=== PATIENT | male | born 1955 | race Caucasian/White ===

== ENCOUNTER 2018-02-28 13:38 | Inpatient (IN) | payer OTHER, MEDICAID ==
[2018-02-28 14:13] LABS: BASO # 0.2 x10^3/uL (0.0-0.2); BASO % 1 % (0-3); EOS % 0 % (0-3); HEMATOCRIT 38.8 % (39.0-53.0); HEMOGLOBIN 12.6 g/dL (13.0-17.5); LYMPH # 0.3 x10^3/uL (1.0-4.8); LYMPH % 1 % (24-48); MEAN CORPUSCULAR HEMOGLOBIN 24 pg (25-35); MEAN CORPUSCULAR HGB CONC 32 g/dL (31-37); MEAN CORPUSCULAR VOLUME 74 fL (79-100); MONO # 1.1 x10^3/uL (0.0-1.1); MONO % 4 % (0-9); NEUT # 25.5 x10^3uL (1.8-7.7); NEUT % 94 % (31-73); PLATELET COUNT 702 x10^3/uL (140-400); RED BLOOD COUNT 5.25 x10^6/uL (4.30-5.70); RED CELL DISTRIBUTION WIDTH 17.4 % (11.5-14.5); WHITE BLOOD COUNT 27.3 x10^3/uL (4.0-11.0)
[2018-02-28 14:16] LABS: ADD MAN DIFF? YES
[2018-02-28 14:21] LABS: ANION GAP 15 (6-14); BLOOD UREA NITROGEN 23 mg/dL (8-26); CALCIUM 9.1 mg/dL (8.5-10.1); CARBON DIOXIDE 21 mmol/L (21-32); CHLORIDE 96 mmol/L (98-107); CREATININE 1.5 mg/dL (0.7-1.3); GFR 47.3; GLUCOSE 113 mg/dL (70-99); POTASSIUM 3.8 mmol/L (3.5-5.1); SODIUM 132 mmol/L (136-145)
[2018-02-28 14:27] LABS: ALBUMIN 2.7 g/dL (3.4-5.0); ALK PHOS 109 U/L (46-116); ALT (SGPT) 23 U/L (16-63); AST (SGOT) 20 U/L (15-37); DIRECT BILIRUBIN 1.2 mg/dL (0.0-0.2); LIPASE 47 U/L (73-393); TOTAL BILIRUBIN 2.1 mg/dL (0.2-1.0)
[2018-02-28 14:30] LABS: INR 1.2 (0.8-1.1); PARTIAL THROMBOPLASTIN TIME 26 SEC (24-38); PROTHROMBIN TIME PATIENT 14.5 SEC (11.7-14.0)
[2018-02-28 14:37] LABS: CKMB MASS < 0.5 ng/mL (0.0-3.6); CREATINE KINASE 60 U/L (39-308)
[2018-02-28] MEDS ORDERED: CONTRAST GIVEN MC (14:45)
[2018-02-28 14:46] LABS: % BANDS 30 % (0-9); % LYMPHS 1 % (24-48); % MONOS 3 % (0-10); % SEGS 66 % (35-66); PLT ESTIMATE INCREASED (ADEQUATE)
[2018-02-28 14:47] LABS: TOXIC GRANULATION SLIGHT
[2018-02-28] MEDS: IOHEXOL 300 MG/ML 100ML VIAL. IV (14:49)
[2018-02-28 14:53] LABS: LACTIC ACID 3.5 mmol/L (0.4-2.0)
[2018-02-28] MEDS: IV NORMAL SALINE 1000ML BAG 1,000 ML IV ×4 (14:58→19:08)
[2018-02-28] MEDS: ONDANSETRON PF 4 MG/2 ML VIAL. IV (15:00)
[2018-02-28] MEDS: fentaNYL PF VIAL 100 MCG/2 ML VIAL IV ×4 (15:05→21:34)
[2018-02-28] MEDS ORDERED: MORPHINE SULFATE 2 MG/ML DISP.SYRIN. IV (15:45)
[2018-02-28 16:34] LABS: LACTIC ACID 2.2 mmol/L (0.4-2.0)
[2018-02-28] MEDS: CIPROFLOXACIN 400MG PREMIX 200 ML IV ×2 (17:22→23:39)
[2018-02-28] MEDS: PNEUMOCOCCAL VAX SCREEN BY RX. MC (17:30)
[2018-02-28] MEDS ORDERED: NOREPINEPHRIN PREMIX 250 ML IV (17:45)
[2018-02-28] MEDS: IV NORMAL SALINE 500ML BAG 500 ML IV (19:02)
[2018-02-28 20:59] LABS: LACTIC ACID 1.8 mmol/L (0.4-2.0)
[2018-02-28] MEDS: diphenhydrAMINE 50 MG/ML VIAL IVP (22:59)
[2018-03-01] MEDS: fentaNYL PF VIAL 100 MCG/2 ML VIAL IV ×6 (05:11→21:00)
[2018-03-01] MEDS: ONDANSETRON PF 4 MG/2 ML VIAL. IV (05:11)
[2018-03-01 05:35] LABS: ADD MAN DIFF? NO
[2018-03-01 06:01] LABS: BASO # 0.1 x10^3/uL (0.0-0.2); BASO % 1 % (0-3); EOS % 0 % (0-3); HEMATOCRIT 32.4 % (39.0-53.0); HEMOGLOBIN 10.1 g/dL (13.0-17.5); LYMPH # 0.4 x10^3/uL (1.0-4.8); LYMPH % 3 % (24-48); MEAN CORPUSCULAR HEMOGLOBIN 23 pg (25-35); MEAN CORPUSCULAR HGB CONC 31 g/dL (31-37); MEAN CORPUSCULAR VOLUME 74 fL (79-100); MONO # 0.6 x10^3/uL (0.0-1.1); MONO % 5 % (0-9); NEUT # 12.7 x10^3uL (1.8-7.7); NEUT % 92 % (31-73); PLATELET COUNT 504 x10^3/uL (140-400); RED BLOOD COUNT 4.35 x10^6/uL (4.30-5.70); RED CELL DISTRIBUTION WIDTH 17.2 % (11.5-14.5); WHITE BLOOD COUNT 13.8 x10^3/uL (4.0-11.0)
[2018-03-01 06:34] LABS: ALBUMIN 1.9 g/dL (3.4-5.0); ALBUMIN/GLOBULIN RATIO 0.4 (1.0-1.7); ALK PHOS 81 U/L (46-116); ALT (SGPT) 16 U/L (16-63); ANION GAP 10 (6-14); AST (SGOT) 14 U/L (15-37); BLOOD UREA NITROGEN 18 mg/dL (8-26); BUN/CREATININE RATIO 16 (6-20); CALCIUM 8.1 mg/dL (8.5-10.1); CARBON DIOXIDE 23 mmol/L (21-32); CHLORIDE 101 mmol/L (98-107); CREATININE 1.1 mg/dL (0.7-1.3); GFR 67.6; POTASSIUM 3.7 mmol/L (3.5-5.1); SODIUM 134 mmol/L (136-145); TOTAL PROTEIN 6.6 g/dL (6.4-8.2)
[2018-03-01 06:42] LABS: GLUCOSE 60 mg/dL (70-99)
[2018-03-01] MEDS: DEXTROSE 50% 25 GM / 50ML DISP.SYRIN. IV (07:27)
[2018-03-01 07:43] LABS: POC GLUCOSE 112 mg/dL (70-99)
[2018-03-01] MEDS: CIPROFLOXACIN 400MG PREMIX 200 ML IV ×2 (09:18→21:01)
[2018-03-01] MEDS: IV DEXTROSE 5% - 0.9 % NACL 1,000 ML IV ×2 (09:55→21:05)
[2018-03-01 11:38] LABS: POC GLUCOSE 113 mg/dL (70-99)
[2018-03-01 16:30] LABS: POC GLUCOSE 103 mg/dL (70-99)
[2018-03-01] MEDS: PNEUMOC CONJ VACC 23-VALENT 0.5 ML VIAL. VAX IM (18:29)
[2018-03-01 20:59] LABS: POC GLUCOSE 111 mg/dL (70-99)
[2018-03-01] MEDS: diphenhydrAMINE 50 MG/ML VIAL IVP (21:00)
[2018-03-01 23:07] LABS: MRSA BY PCR Negative (Negative)
[2018-03-02] MEDS: fentaNYL PF VIAL 100 MCG/2 ML VIAL IV ×7 (01:55→23:29)
[2018-03-02] MEDS: IV DEXTROSE 5% - 0.9 % NACL 1,000 ML IV ×2 (04:41→21:00)
[2018-03-02 08:16] LABS: POC GLUCOSE 168 mg/dL (70-99)
[2018-03-02] MEDS: CIPROFLOXACIN 400MG PREMIX 200 ML IV ×2 (09:05→21:00)
[2018-03-02 12:24] LABS: POC GLUCOSE 165 mg/dL (70-99)
[2018-03-02 17:04] LABS: POC GLUCOSE 129 mg/dL (70-99)
[2018-03-02 23:19] LABS: POC GLUCOSE 186 mg/dL (70-99)
[2018-03-03] MEDS: fentaNYL PF VIAL 100 MCG/2 ML VIAL IV ×6 (02:47→19:28)
[2018-03-03 04:57] LABS: ADD MAN DIFF? NO
[2018-03-03 05:09] LABS: BASO % 0 % (0-3); EOS # 0.1 x10^3/uL (0.0-0.7); EOS % 1 % (0-3); HEMOGLOBIN 11.2 g/dL (13.0-17.5); LYMPH # 0.4 x10^3/uL (1.0-4.8); LYMPH % 3 % (24-48); MEAN CORPUSCULAR HEMOGLOBIN 23 pg (25-35); MEAN CORPUSCULAR HGB CONC 31 g/dL (31-37); MEAN CORPUSCULAR VOLUME 75 fL (79-100); MONO # 0.9 x10^3/uL (0.0-1.1); MONO % 6 % (0-9); NEUT # 13.2 x10^3uL (1.8-7.7); NEUT % 90 % (31-73); PLATELET COUNT 602 x10^3/uL (140-400); RED CELL DISTRIBUTION WIDTH 17.2 % (11.5-14.5); WHITE BLOOD COUNT 14.6 x10^3/uL (4.0-11.0)
[2018-03-03 05:29] LABS: ANION GAP 8 (6-14); BLOOD UREA NITROGEN 19 mg/dL (8-26); CALCIUM 7.9 mg/dL (8.5-10.1); CARBON DIOXIDE 25 mmol/L (21-32); CHLORIDE 101 mmol/L (98-107); CREATININE 0.9 mg/dL (0.7-1.3); GFR 85.2; GLUCOSE 175 mg/dL (70-99); POTASSIUM 4.2 mmol/L (3.5-5.1); SODIUM 134 mmol/L (136-145)
[2018-03-03] MEDS: CIPROFLOXACIN 400MG PREMIX 200 ML IV ×2 (08:41→21:04)
[2018-03-03 08:42] LABS: POC GLUCOSE 160 mg/dL (70-99)
[2018-03-03] MEDS ORDERED: DEXTROSE 50% 25 GM / 50ML DISP.SYRIN. IV (10:45)
[2018-03-03 11:12] LABS: BILIRUBIN,URINE SMALL (NEG); CLARITY,URINE CLEAR; COLOR,URINE AMBER; GLUCOSE,URINE 250 mg/dL (NEG); NITRITE,URINE NEGATIVE (NEG); PH,URINE 5.5; PROTEIN,URINE 30 mg/dL (NEG-TRACE); UROBILINOGEN,URINE 0.2 mg/dL (0.2 mg/dL)
[2018-03-03 11:13] LABS: BACTERIA,URINE MODERATE /HPF (0-FEW); RBC,URINE OCC /HPF (0-2); SQUAMOUS EPITHELIAL CELL,UR OCC /LPF
[2018-03-03] MEDS: INSULIN ASPART 300 UNITS/3 ML INSULN.PEN SQ ×2 (12:05→17:00)
[2018-03-03 13:10] LABS: POC GLUCOSE 177 mg/dL (70-99)
[2018-03-03] MEDS: IV DEXTROSE 5% - 0.9 % NACL 1,000 ML IV (15:31)
[2018-03-03 16:37] LABS: POC GLUCOSE 145 mg/dL (70-99)
[2018-03-03 20:46] LABS: POC GLUCOSE 151 mg/dL (70-99)
[2018-03-03] MEDS: LACTOBACILLUS RHAMNOSUS GG 1 CAPSULE. PO (21:04)
[2018-03-04] MEDS: diphenhydrAMINE 50 MG/ML VIAL IVP (00:59)
[2018-03-04] MEDS: fentaNYL PF VIAL 100 MCG/2 ML VIAL IV ×2 (00:59→10:41)
[2018-03-04 03:34] LABS: ADD MAN DIFF? NO
[2018-03-04 03:37] LABS: BASO # 0.1 x10^3/uL (0.0-0.2); BASO % 1 % (0-3); EOS # 0.2 x10^3/uL (0.0-0.7); EOS % 2 % (0-3); HEMATOCRIT 34.5 % (39.0-53.0); HEMOGLOBIN 10.6 g/dL (13.0-17.5); LYMPH # 0.7 x10^3/uL (1.0-4.8); LYMPH % 6 % (24-48); MEAN CORPUSCULAR HEMOGLOBIN 23 pg (25-35); MEAN CORPUSCULAR HGB CONC 31 g/dL (31-37); MEAN CORPUSCULAR VOLUME 75 fL (79-100); MONO % 9 % (0-9); NEUT # 8.7 x10^3uL (1.8-7.7); NEUT % 82 % (31-73); PLATELET COUNT 584 x10^3/uL (140-400); RED BLOOD COUNT 4.62 x10^6/uL (4.30-5.70); RED CELL DISTRIBUTION WIDTH 17.6 % (11.5-14.5); WHITE BLOOD COUNT 10.6 x10^3/uL (4.0-11.0)
[2018-03-04 04:00] LABS: ALBUMIN 1.7 g/dL (3.4-5.0); ALBUMIN/GLOBULIN RATIO 0.4 (1.0-1.7); ALK PHOS 72 U/L (46-116); ALT (SGPT) 31 U/L (16-63); ANION GAP 6 (6-14); AST (SGOT) 11 U/L (15-37); BLOOD UREA NITROGEN 14 mg/dL (8-26); BUN/CREATININE RATIO 14 (6-20); CALCIUM 7.6 mg/dL (8.5-10.1); CARBON DIOXIDE 27 mmol/L (21-32); CHLORIDE 100 mmol/L (98-107); GFR 75.5; GLUCOSE 154 mg/dL (70-99); POTASSIUM 3.8 mmol/L (3.5-5.1); SODIUM 133 mmol/L (136-145); TOTAL BILIRUBIN 0.5 mg/dL (0.2-1.0); TOTAL PROTEIN 5.7 g/dL (6.4-8.2)
[2018-03-04] MEDS: IV DEXTROSE 5% - 0.9 % NACL 1,000 ML IV ×2 (05:50→17:56)
[2018-03-04] MEDS ORDERED: CONTRAST GIVEN MC (07:15)
[2018-03-04] MEDS: IOHEXOL 240 MG/ML 50ML VIAL. PO (07:15)
[2018-03-04] MEDS: IOHEXOL 300 MG/ML 100ML VIAL. IV (07:15)
[2018-03-04] MEDS: INSULIN ASPART 300 UNITS/3 ML INSULN.PEN SQ ×3 (08:00→17:00)
[2018-03-04 08:20] LABS: POC GLUCOSE 153 mg/dL (70-99)
[2018-03-04] MEDS: CIPROFLOXACIN 400MG PREMIX 200 ML IV ×2 (08:31→20:35)
[2018-03-04] MEDS: LACTOBACILLUS RHAMNOSUS GG 1 CAPSULE. PO ×2 (08:31→20:35)
[2018-03-04 11:56] LABS: POC GLUCOSE 170 mg/dL (70-99)
[2018-03-04 16:47] LABS: % SAT IRON 10 % (15-34); IRON,SERUM 15 ug/dL (65-175)
[2018-03-04 17:25] LABS: POC GLUCOSE 123 mg/dL (70-99)
[2018-03-04] MEDS: PANTOPRAZOLE 40 MG TABLET.DR. PO (17:55)
[2018-03-04] MEDS: oxyCODONE/APAP 5/325 1 TAB TABLET PO ×2 (17:56→22:27)
[2018-03-04] MEDS ORDERED: LIDO:MAALOX:DONNATAL 1:1:1 15 ML SINGLE DOSE SWSW (20:00)
[2018-03-04] MEDS: LIDO:MAALOX 1:1 20 ML SINGLE DOSE. PO (20:34)
[2018-03-04 21:15] LABS: POC GLUCOSE 147 mg/dL (70-99)
[2018-03-05 04:30] LABS: ADD MAN DIFF? NO
[2018-03-05 04:32] LABS: BASO % 0 % (0-3); EOS # 0.3 x10^3/uL (0.0-0.7); EOS % 2 % (0-3); HEMATOCRIT 34.8 % (39.0-53.0); HEMOGLOBIN 10.9 g/dL (13.0-17.5); LYMPH # 0.8 x10^3/uL (1.0-4.8); LYMPH % 8 % (24-48); MEAN CORPUSCULAR HEMOGLOBIN 23 pg (25-35); MEAN CORPUSCULAR HGB CONC 31 g/dL (31-37); MEAN CORPUSCULAR VOLUME 74 fL (79-100); MONO # 1.2 x10^3/uL (0.0-1.1); MONO % 11 % (0-9); NEUT # 8.8 x10^3uL (1.8-7.7); NEUT % 79 % (31-73); PLATELET COUNT 591 x10^3/uL (140-400); RED CELL DISTRIBUTION WIDTH 17.6 % (11.5-14.5); WHITE BLOOD COUNT 11.1 x10^3/uL (4.0-11.0)
[2018-03-05 04:54] LABS: ALBUMIN 1.7 g/dL (3.4-5.0); ALBUMIN/GLOBULIN RATIO 0.4 (1.0-1.7); ALK PHOS 74 U/L (46-116); ALT (SGPT) 12 U/L (16-63); ANION GAP 5 (6-14); AST (SGOT) 12 U/L (15-37); BLOOD UREA NITROGEN 12 mg/dL (8-26); BUN/CREATININE RATIO 13 (6-20); CALCIUM 7.6 mg/dL (8.5-10.1); CARBON DIOXIDE 27 mmol/L (21-32); CHLORIDE 101 mmol/L (98-107); CREATININE 0.9 mg/dL (0.7-1.3); GFR 85.2; GLUCOSE 155 mg/dL (70-99); POTASSIUM 3.7 mmol/L (3.5-5.1); SODIUM 133 mmol/L (136-145); TOTAL BILIRUBIN 0.4 mg/dL (0.2-1.0); TOTAL PROTEIN 5.8 g/dL (6.4-8.2)
[2018-03-05] MEDS: PANTOPRAZOLE 40 MG TABLET.DR. PO (05:32)
[2018-03-05] MEDS: oxyCODONE/APAP 5/325 1 TAB TABLET PO ×3 (05:32→20:24)
[2018-03-05] MEDS: IV DEXTROSE 5% - 0.9 % NACL 1,000 ML IV ×2 (05:33→18:10)
[2018-03-05] MEDS: INSULIN ASPART 300 UNITS/3 ML INSULN.PEN SQ ×3 (07:55→17:00)
[2018-03-05] MEDS: LACTOBACILLUS RHAMNOSUS GG 1 CAPSULE. PO ×2 (07:58→20:24)
[2018-03-05] MEDS: ONDANSETRON PF 4 MG/2 ML VIAL. IV (08:01)
[2018-03-05] MEDS: CIPROFLOXACIN 400MG PREMIX 200 ML IV ×2 (08:56→20:24)
[2018-03-05 12:07] LABS: POC GLUCOSE 166 mg/dL (70-99)
[2018-03-05 17:07] LABS: POC GLUCOSE 147 mg/dL (70-99)
[2018-03-05 17:07] LABS: POC GLUCOSE 126 mg/dL (70-99)
[2018-03-05] MEDS: CALCIUM CARBONATE 500 MG TAB.CHEW PO (20:24)
[2018-03-05 21:06] LABS: POC GLUCOSE 154 mg/dL (70-99)
[2018-03-06 04:08] LABS: ADD MAN DIFF? NO
[2018-03-06 04:11] LABS: BASO # 0.1 x10^3/uL (0.0-0.2); BASO % 1 % (0-3); EOS # 0.2 x10^3/uL (0.0-0.7); EOS % 2 % (0-3); HEMATOCRIT 34.8 % (39.0-53.0); LYMPH # 0.9 x10^3/uL (1.0-4.8); LYMPH % 8 % (24-48); MEAN CORPUSCULAR HEMOGLOBIN 23 pg (25-35); MEAN CORPUSCULAR HGB CONC 32 g/dL (31-37); MEAN CORPUSCULAR VOLUME 74 fL (79-100); MONO # 1.1 x10^3/uL (0.0-1.1); MONO % 9 % (0-9); NEUT # 9.9 x10^3uL (1.8-7.7); NEUT % 81 % (31-73); PLATELET COUNT 619 x10^3/uL (140-400); RED BLOOD COUNT 4.71 x10^6/uL (4.30-5.70); RED CELL DISTRIBUTION WIDTH 17.6 % (11.5-14.5); WHITE BLOOD COUNT 12.2 x10^3/uL (4.0-11.0)
[2018-03-06] MEDS: PANTOPRAZOLE 40 MG TABLET.DR. PO (05:32)
[2018-03-06] MEDS: IV DEXTROSE 5% - 0.9 % NACL 1,000 ML IV ×2 (05:47→16:58)
[2018-03-06 06:51] LABS: SEDIMENTATION RATE 46 (0-15)
[2018-03-06 07:47] LABS: POC GLUCOSE 126 mg/dL (70-99)
[2018-03-06] MEDS: INSULIN ASPART 300 UNITS/3 ML INSULN.PEN SQ ×3 (08:00→16:58)
[2018-03-06] MEDS: LACTOBACILLUS RHAMNOSUS GG 1 CAPSULE. PO ×2 (09:00→20:18)
[2018-03-06] MEDS: CIPROFLOXACIN 400MG PREMIX 200 ML IV ×2 (09:09→20:19)
[2018-03-06] MEDS ORDERED: LIDOCAINE WITH 8.4% SOD BICARB 3 ML DISP.SYRIN. (11:05)
[2018-03-06] MEDS ORDERED: MIDAZOLAM HCL/PF 2 MG/2 ML VIAL. (11:11)
[2018-03-06] MEDS ORDERED: fentaNYL PF VIAL 100 MCG/2 ML VIAL (11:11)
[2018-03-06 11:21] LABS: POC GLUCOSE 158 mg/dL (70-99)
[2018-03-06] MEDS: LIDOCAINE WITH 8.4% SOD BICARB 3 ML DISP.SYRIN. IJ (12:05)
[2018-03-06] MEDS: MIDAZOLAM HCL/PF 2 MG/2 ML VIAL. IV (12:08)
[2018-03-06] MEDS: fentaNYL PF VIAL 100 MCG/2 ML VIAL IV ×3 (12:08→16:55)
[2018-03-06] MEDS: oxyCODONE/APAP 5/325 1 TAB TABLET PO ×2 (16:19→20:18)
[2018-03-06 16:29] LABS: POC GLUCOSE 119 mg/dL (70-99)
[2018-03-06 20:51] LABS: POC GLUCOSE 147 mg/dL (70-99)
[2018-03-06] MEDS: diphenhydrAMINE 50 MG/ML VIAL IVP (21:54)
[2018-03-07] MEDS: oxyCODONE/APAP 5/325 1 TAB TABLET PO ×4 (02:07→18:03)
[2018-03-07 05:59] LABS: ADD MAN DIFF? NO
[2018-03-07 06:02] LABS: BASO # 0.1 x10^3/uL (0.0-0.2); BASO % 1 % (0-3); EOS # 0.1 x10^3/uL (0.0-0.7); EOS % 1 % (0-3); HEMATOCRIT 34.8 % (39.0-53.0); HEMOGLOBIN 10.7 g/dL (13.0-17.5); LYMPH # 0.9 x10^3/uL (1.0-4.8); LYMPH % 7 % (24-48); MEAN CORPUSCULAR HEMOGLOBIN 23 pg (25-35); MEAN CORPUSCULAR HGB CONC 31 g/dL (31-37); MEAN CORPUSCULAR VOLUME 75 fL (79-100); MONO % 7 % (0-9); NEUT # 11.6 x10^3uL (1.8-7.7); NEUT % 84 % (31-73); PLATELET COUNT 596 x10^3/uL (140-400); RED BLOOD COUNT 4.68 x10^6/uL (4.30-5.70); WHITE BLOOD COUNT 13.7 x10^3/uL (4.0-11.0)
[2018-03-07 06:28] LABS: ALBUMIN 1.7 g/dL (3.4-5.0); ALBUMIN/GLOBULIN RATIO 0.4 (1.0-1.7); ALK PHOS 68 U/L (46-116); ALT (SGPT) 10 U/L (16-63); ANION GAP 9 (6-14); AST (SGOT) 13 U/L (15-37); BLOOD UREA NITROGEN 11 mg/dL (8-26); BUN/CREATININE RATIO 12 (6-20); CALCIUM 7.4 mg/dL (8.5-10.1); CARBON DIOXIDE 25 mmol/L (21-32); CHLORIDE 102 mmol/L (98-107); CREATININE 0.9 mg/dL (0.7-1.3); GFR 85.2; GLUCOSE 151 mg/dL (70-99); POTASSIUM 3.7 mmol/L (3.5-5.1); SODIUM 136 mmol/L (136-145); TOTAL BILIRUBIN 0.4 mg/dL (0.2-1.0); TOTAL PROTEIN 5.5 g/dL (6.4-8.2)
[2018-03-07] MEDS: INSULIN ASPART 300 UNITS/3 ML INSULN.PEN SQ ×3 (08:00→17:00)
[2018-03-07] MEDS: PANTOPRAZOLE 40 MG TABLET.DR. PO (08:59)
[2018-03-07] MEDS: MORPHINE IR 15 MG TABLET PO ×2 (08:59→21:30)
[2018-03-07] MEDS: LACTOBACILLUS RHAMNOSUS GG 1 CAPSULE. PO ×2 (08:59→21:22)
[2018-03-07] MEDS: CIPROFLOXACIN 400MG PREMIX 200 ML IV ×2 (09:02→21:22)
[2018-03-07] MEDS ORDERED: fentaNYL PF VIAL 100 MCG/2 ML VIAL IV (09:45)
[2018-03-07 11:40] LABS: POC GLUCOSE 129 mg/dL (70-99)
[2018-03-07 11:41] LABS: POC GLUCOSE 164 mg/dL (70-99)
[2018-03-07 16:36] LABS: POC GLUCOSE 133 mg/dL (70-99)
[2018-03-07 20:44] LABS: POC GLUCOSE 128 mg/dL (70-99)
[2018-03-08] MEDS: oxyCODONE/APAP 5/325 1 TAB TABLET PO ×4 (02:59→20:37)
[2018-03-08] MEDS: PANTOPRAZOLE 40 MG TABLET.DR. PO (06:46)
[2018-03-08 07:55] LABS: POC GLUCOSE 110 mg/dL (70-99)
[2018-03-08] MEDS: INSULIN ASPART 300 UNITS/3 ML INSULN.PEN SQ ×3 (08:00→17:24)
[2018-03-08] MEDS: LACTOBACILLUS RHAMNOSUS GG 1 CAPSULE. PO ×2 (08:20→20:36)
[2018-03-08] MEDS: CIPROFLOXACIN 400MG PREMIX 200 ML IV ×2 (08:21→20:38)
[2018-03-08 11:39] LABS: POC GLUCOSE 133 mg/dL (70-99)
[2018-03-08 16:32] LABS: POC GLUCOSE 158 mg/dL (70-99)
[2018-03-09] MEDS: oxyCODONE/APAP 5/325 1 TAB TABLET PO ×3 (03:22→18:29)
[2018-03-09 04:34] LABS: BASO % 0 % (0-3); EOS # 0.2 x10^3/uL (0.0-0.7); EOS % 1 % (0-3); HEMATOCRIT 32.6 % (39.0-53.0); HEMOGLOBIN 10.1 g/dL (13.0-17.5); LYMPH # 0.7 x10^3/uL (1.0-4.8); LYMPH % 5 % (24-48); MEAN CORPUSCULAR HEMOGLOBIN 23 pg (25-35); MEAN CORPUSCULAR HGB CONC 31 g/dL (31-37); MEAN CORPUSCULAR VOLUME 74 fL (79-100); MONO % 6 % (0-9); NEUT # 13.3 x10^3uL (1.8-7.7); NEUT % 87 % (31-73); PLATELET COUNT 655 x10^3/uL (140-400); RED BLOOD COUNT 4.39 x10^6/uL (4.30-5.70); RED CELL DISTRIBUTION WIDTH 18.1 % (11.5-14.5); WHITE BLOOD COUNT 15.2 x10^3/uL (4.0-11.0)
[2018-03-09 04:35] LABS: ADD MAN DIFF? YES
[2018-03-09 04:50] LABS: ANION GAP 6 (6-14); BLOOD UREA NITROGEN 10 mg/dL (8-26); CALCIUM 7.7 mg/dL (8.5-10.1); CARBON DIOXIDE 26 mmol/L (21-32); CHLORIDE 101 mmol/L (98-107); CREATININE 0.8 mg/dL (0.7-1.3); GFR 97.6; GLUCOSE 133 mg/dL (70-99); POTASSIUM 3.5 mmol/L (3.5-5.1); SODIUM 133 mmol/L (136-145)
[2018-03-09] MEDS: PANTOPRAZOLE 40 MG TABLET.DR. PO ×2 (05:28→08:26)
[2018-03-09 07:03] LABS: % BANDS 1 % (0-9); % EOS 1 % (0-5); % LYMPHS 2 % (24-48); % MONOS 4 % (0-10); % SEGS 92 % (35-66); ANISOCYTOSIS SLIGHT; PLT ESTIMATE INCREASED (ADEQUATE); POLYCHROMASIA SLIGHT
[2018-03-09] MEDS: INSULIN ASPART 300 UNITS/3 ML INSULN.PEN SQ ×3 (08:00→17:00)
[2018-03-09 08:26] LABS: POC GLUCOSE 126 mg/dL (70-99)
[2018-03-09] MEDS: LACTOBACILLUS RHAMNOSUS GG 1 CAPSULE. PO ×2 (08:26→21:13)
[2018-03-09] MEDS: CIPROFLOXACIN 400MG PREMIX 200 ML IV ×2 (08:28→21:14)
[2018-03-09 11:53] LABS: POC GLUCOSE 138 mg/dL (70-99)
[2018-03-09] MEDS: IOHEXOL 240 MG/ML 50ML VIAL. PO (12:45)
[2018-03-09] MEDS: IOHEXOL 300 MG/ML 100ML VIAL. IV (12:45)
[2018-03-09] MEDS ORDERED: CONTRAST GIVEN MC (13:00)
[2018-03-09] MEDS: oxyCODONE/APAP 10/325 1 TAB TABLET PO ×2 (13:23→21:13)
[2018-03-09 21:14] LABS: POC GLUCOSE 138 mg/dL (70-99)
[2018-03-10] MEDS: oxyCODONE/APAP 10/325 1 TAB TABLET PO ×3 (02:23→16:33)
[2018-03-10 05:19] LABS: ADD MAN DIFF? NO
[2018-03-10 05:29] LABS: BASO # 0.1 x10^3/uL (0.0-0.2); BASO % 1 % (0-3); EOS # 0.2 x10^3/uL (0.0-0.7); EOS % 1 % (0-3); HEMATOCRIT 36.3 % (39.0-53.0); HEMOGLOBIN 11.2 g/dL (13.0-17.5); LYMPH # 0.8 x10^3/uL (1.0-4.8); LYMPH % 6 % (24-48); MEAN CORPUSCULAR HEMOGLOBIN 23 pg (25-35); MEAN CORPUSCULAR HGB CONC 31 g/dL (31-37); MEAN CORPUSCULAR VOLUME 75 fL (79-100); MONO # 0.8 x10^3/uL (0.0-1.1); MONO % 6 % (0-9); NEUT # 12.7 x10^3uL (1.8-7.7); NEUT % 87 % (31-73); PLATELET COUNT 713 x10^3/uL (140-400); RED BLOOD COUNT 4.87 x10^6/uL (4.30-5.70); RED CELL DISTRIBUTION WIDTH 18.5 % (11.5-14.5); WHITE BLOOD COUNT 14.7 x10^3/uL (4.0-11.0)
[2018-03-10 05:41] LABS: ANION GAP 10 (6-14); BLOOD UREA NITROGEN 9 mg/dL (8-26); CALCIUM 7.5 mg/dL (8.5-10.1); CARBON DIOXIDE 27 mmol/L (21-32); CHLORIDE 99 mmol/L (98-107); CREATININE 0.9 mg/dL (0.7-1.3); GFR 85.2; GLUCOSE 134 mg/dL (70-99); POTASSIUM 3.5 mmol/L (3.5-5.1); SODIUM 136 mmol/L (136-145)
[2018-03-10] MEDS: oxyCODONE/APAP 5/325 1 TAB TABLET PO (06:24)
[2018-03-10 07:53] LABS: POC GLUCOSE 156 mg/dL (70-99)
[2018-03-10] MEDS: INSULIN ASPART 300 UNITS/3 ML INSULN.PEN SQ ×3 (08:00→17:00)
[2018-03-10] MEDS: LACTOBACILLUS RHAMNOSUS GG 1 CAPSULE. PO ×2 (09:46→20:37)
[2018-03-10] MEDS: CIPROFLOXACIN 400MG PREMIX 200 ML IV (09:46)
[2018-03-10 11:15] LABS: POC GLUCOSE 163 mg/dL (70-99)
[2018-03-10] MEDS ORDERED: LIDOCAINE WITH 8.4% SOD BICARB 3 ML DISP.SYRIN. (13:30)
[2018-03-10] MEDS ORDERED: PIP/TAZO PER PHARMACY MC (13:45)
[2018-03-10] MEDS ORDERED: MORPHINE SULFATE 4 MG/ML DISP.SYRIN. IV (13:45)
[2018-03-10] MEDS ORDERED: ACETAMINOPHEN 325 MG TABLET. PO (13:45)
[2018-03-10] MEDS ORDERED: hydrALAZINE 20 MG/ML VIAL. IVP (13:45)
[2018-03-10] MEDS: PIPERACILLIN/TAZOBACTAM 4.5 GM in IV NORMAL SALINE 100ML 100 ML IV ×2 (14:20→18:01)
[2018-03-10] MEDS ORDERED: MIDAZOLAM HCL/PF 2 MG/2 ML VIAL. (15:31)
[2018-03-10] MEDS ORDERED: FLUMAZENIL 0.5 MG/5 ML VIAL. IV (15:32)
[2018-03-10] MEDS ORDERED: NALOXONE 0.4 MG/ML VIAL. (15:32)
[2018-03-10] MEDS ORDERED: fentaNYL PF VIAL 100 MCG/2 ML VIAL (15:32)
[2018-03-10] MEDS: LIDOCAINE WITH 8.4% SOD BICARB 3 ML DISP.SYRIN. IJ (15:52)
[2018-03-10] MEDS: MIDAZOLAM HCL/PF 2 MG/2 ML VIAL. IV (15:53)
[2018-03-10] MEDS: fentaNYL PF VIAL 100 MCG/2 ML VIAL IV (15:53)
[2018-03-10 16:21] LABS: POC GLUCOSE 116 mg/dL (70-99)
[2018-03-10] MEDS: traMADol 50 MG TABLET PO (20:37)
[2018-03-10 21:26] LABS: POC GLUCOSE 128 mg/dL (70-99)
[2018-03-11] MEDS: PIPERACILLIN/TAZOBACTAM 4.5 GM in IV NORMAL SALINE 100ML 100 ML IV ×4 (00:29→18:00)
[2018-03-11] MEDS: oxyCODONE/APAP 10/325 1 TAB TABLET PO ×5 (00:35→17:48)
[2018-03-11] MEDS: PANTOPRAZOLE 40 MG TABLET.DR. PO (05:19)
[2018-03-11 06:54] LABS: ADD MAN DIFF? NO
[2018-03-11 07:00] LABS: BASO # 0.1 x10^3/uL (0.0-0.2); BASO % 1 % (0-3); EOS # 0.2 x10^3/uL (0.0-0.7); EOS % 1 % (0-3); HEMATOCRIT 33.5 % (39.0-53.0); HEMOGLOBIN 10.6 g/dL (13.0-17.5); LYMPH # 0.9 x10^3/uL (1.0-4.8); LYMPH % 7 % (24-48); MEAN CORPUSCULAR HEMOGLOBIN 23 pg (25-35); MEAN CORPUSCULAR HGB CONC 32 g/dL (31-37); MEAN CORPUSCULAR VOLUME 74 fL (79-100); MONO # 0.9 x10^3/uL (0.0-1.1); MONO % 7 % (0-9); NEUT # 11.2 x10^3uL (1.8-7.7); NEUT % 84 % (31-73); PLATELET COUNT 750 x10^3/uL (140-400); RED BLOOD COUNT 4.53 x10^6/uL (4.30-5.70); RED CELL DISTRIBUTION WIDTH 18.4 % (11.5-14.5); WHITE BLOOD COUNT 13.3 x10^3/uL (4.0-11.0)
[2018-03-11 07:07] LABS: ANION GAP 9 (6-14); BLOOD UREA NITROGEN 9 mg/dL (8-26); CALCIUM 7.3 mg/dL (8.5-10.1); CARBON DIOXIDE 25 mmol/L (21-32); CHLORIDE 100 mmol/L (98-107); CREATININE 0.9 mg/dL (0.7-1.3); GFR 85.2; GLUCOSE 135 mg/dL (70-99); POTASSIUM 3.7 mmol/L (3.5-5.1); SODIUM 134 mmol/L (136-145)
[2018-03-11] MEDS: INSULIN ASPART 300 UNITS/3 ML INSULN.PEN SQ ×3 (07:38→17:00)
[2018-03-11 08:10] LABS: POC GLUCOSE 118 mg/dL (70-99)
[2018-03-11] MEDS: ONDANSETRON PF 4 MG/2 ML VIAL. IV (08:50)
[2018-03-11] MEDS: LACTOBACILLUS RHAMNOSUS GG 1 CAPSULE. PO ×2 (08:54→20:57)
[2018-03-11 11:52] LABS: POC GLUCOSE 140 mg/dL (70-99)
[2018-03-11] MEDS: METOPROLOL TART IMMED RELEASE 25 MG TABLET. PO (13:25)
[2018-03-11] MEDS: IV RINGERS,LACTATED 1000ML 1,000 ML IV (13:28)
[2018-03-11] MEDS: CALCIUM CARBONATE 500 MG TAB.CHEW PO ×2 (15:37→20:57)
[2018-03-11 16:47] LABS: POC GLUCOSE 118 mg/dL (70-99)
[2018-03-11] MEDS: SIMVASTATIN 40 MG TABLET. PO (20:57)
[2018-03-11] MEDS: oxyCODONE/APAP 5/325 1 TAB TABLET PO ×2 (20:57→22:05)
[2018-03-11 21:01] LABS: POC GLUCOSE 152 mg/dL (70-99)
[2018-03-12] MEDS: oxyCODONE/APAP 5/325 1 TAB TABLET PO ×4 (03:20→21:45)
[2018-03-12] MEDS: PIPERACILLIN/TAZOBACTAM 4.5 GM in IV NORMAL SALINE 100ML 100 ML IV ×4 (06:10→17:06)
[2018-03-12 06:19] LABS: ADD MAN DIFF? NO
[2018-03-12 06:42] LABS: BASO # 0.1 x10^3/uL (0.0-0.2); BASO % 1 % (0-3); EOS # 0.1 x10^3/uL (0.0-0.7); EOS % 1 % (0-3); HEMOGLOBIN 10.5 g/dL (13.0-17.5); LYMPH # 0.8 x10^3/uL (1.0-4.8); LYMPH % 6 % (24-48); MEAN CORPUSCULAR HEMOGLOBIN 23 pg (25-35); MEAN CORPUSCULAR HGB CONC 31 g/dL (31-37); MEAN CORPUSCULAR VOLUME 75 fL (79-100); MONO # 0.9 x10^3/uL (0.0-1.1); MONO % 7 % (0-9); NEUT % 86 % (31-73); PLATELET COUNT 790 x10^3/uL (140-400); RED BLOOD COUNT 4.55 x10^6/uL (4.30-5.70); RED CELL DISTRIBUTION WIDTH 18.6 % (11.5-14.5); WHITE BLOOD COUNT 13.9 x10^3/uL (4.0-11.0)
[2018-03-12 06:46] LABS: ANION GAP 7 (6-14); BLOOD UREA NITROGEN 7 mg/dL (8-26); CALCIUM 7.5 mg/dL (8.5-10.1); CARBON DIOXIDE 27 mmol/L (21-32); CHLORIDE 100 mmol/L (98-107); GFR 75.5; GLUCOSE 135 mg/dL (70-99); POTASSIUM 3.9 mmol/L (3.5-5.1); SODIUM 134 mmol/L (136-145)
[2018-03-12] MEDS: INSULIN ASPART 300 UNITS/3 ML INSULN.PEN SQ ×3 (08:00→17:00)
[2018-03-12] MEDS: ASPIRIN 325 MG TABLET PO (08:36)
[2018-03-12] MEDS: METOPROLOL TART IMMED RELEASE 25 MG TABLET. PO (08:36)
[2018-03-12] MEDS: LACTOBACILLUS RHAMNOSUS GG 1 CAPSULE. PO ×2 (08:36→21:40)
[2018-03-12] MEDS: PANTOPRAZOLE 40 MG TABLET.DR. PO (08:36)
[2018-03-12] MEDS: IV RINGERS,LACTATED 1000ML 1,000 ML IV (08:37)
[2018-03-12 12:47] LABS: POC GLUCOSE 131 mg/dL (70-99)
[2018-03-12 12:47] LABS: POC GLUCOSE 131 mg/dL (70-99)
[2018-03-12 16:57] LABS: POC GLUCOSE 113 mg/dL (70-99)
[2018-03-12 21:03] LABS: POC GLUCOSE 122 mg/dL (70-99)
[2018-03-12] MEDS: SIMVASTATIN 40 MG TABLET. PO (21:41)
[2018-03-13] MEDS: PIPERACILLIN/TAZOBACTAM 4.5 GM in IV NORMAL SALINE 100ML 100 ML IV ×4 (00:07→17:59)
[2018-03-13] MEDS: oxyCODONE/APAP 5/325 1 TAB TABLET PO ×5 (03:00→22:03)
[2018-03-13] MEDS: IV RINGERS,LACTATED 1000ML 1,000 ML IV (05:15)
[2018-03-13 05:18] LABS: ADD MAN DIFF? NO
[2018-03-13 05:40] LABS: BASO % 0 % (0-3); EOS # 0.2 x10^3/uL (0.0-0.7); EOS % 2 % (0-3); HEMATOCRIT 34.9 % (39.0-53.0); HEMOGLOBIN 10.7 g/dL (13.0-17.5); LYMPH # 0.9 x10^3/uL (1.0-4.8); LYMPH % 8 % (24-48); MEAN CORPUSCULAR HEMOGLOBIN 23 pg (25-35); MEAN CORPUSCULAR HGB CONC 31 g/dL (31-37); MEAN CORPUSCULAR VOLUME 75 fL (79-100); MONO # 0.9 x10^3/uL (0.0-1.1); MONO % 8 % (0-9); NEUT # 8.6 x10^3uL (1.8-7.7); NEUT % 82 % (31-73); PLATELET COUNT 815 x10^3/uL (140-400); RED BLOOD COUNT 4.65 x10^6/uL (4.30-5.70); RED CELL DISTRIBUTION WIDTH 18.4 % (11.5-14.5); WHITE BLOOD COUNT 10.5 x10^3/uL (4.0-11.0)
[2018-03-13 05:50] LABS: ANION GAP 5 (6-14); BLOOD UREA NITROGEN 8 mg/dL (8-26); CALCIUM 8.1 mg/dL (8.5-10.1); CARBON DIOXIDE 29 mmol/L (21-32); CHLORIDE 100 mmol/L (98-107); GFR 75.5; GLUCOSE 110 mg/dL (70-99); POTASSIUM 4.1 mmol/L (3.5-5.1); SODIUM 134 mmol/L (136-145)
[2018-03-13] MEDS: INSULIN ASPART 300 UNITS/3 ML INSULN.PEN SQ ×3 (08:00→17:00)
[2018-03-13 08:26] LABS: POC GLUCOSE 104 mg/dL (70-99)
[2018-03-13] MEDS: ASPIRIN 325 MG TABLET PO (09:12)
[2018-03-13] MEDS: PANTOPRAZOLE 40 MG TABLET.DR. PO (09:12)
[2018-03-13] MEDS: LACTOBACILLUS RHAMNOSUS GG 1 CAPSULE. PO ×2 (09:12→22:03)
[2018-03-13] MEDS: METOPROLOL TART IMMED RELEASE 25 MG TABLET. PO (09:13)
[2018-03-13 09:39] LABS: INR 1.1 (0.8-1.1); PROTHROMBIN TIME PATIENT 13.5 SEC (11.7-14.0)
[2018-03-13 13:11] LABS: POC GLUCOSE 166 mg/dL (70-99)
[2018-03-13 20:59] LABS: POC GLUCOSE 144 mg/dL (70-99)
[2018-03-13] MEDS: SIMVASTATIN 40 MG TABLET. PO (22:03)
[2018-03-14] MEDS: PIPERACILLIN/TAZOBACTAM 4.5 GM in IV NORMAL SALINE 100ML 100 ML IV ×4 (00:05→18:27)
[2018-03-14] MEDS: IV RINGERS,LACTATED 1000ML 1,000 ML IV (01:15)
[2018-03-14] MEDS: oxyCODONE/APAP 5/325 1 TAB TABLET PO ×4 (06:49→21:46)
[2018-03-14] MEDS: PANTOPRAZOLE 40 MG TABLET.DR. PO (06:49)
[2018-03-14] MEDS: INSULIN ASPART 300 UNITS/3 ML INSULN.PEN SQ ×3 (08:00→17:00)
[2018-03-14 08:12] LABS: POC GLUCOSE 114 mg/dL (70-99)
[2018-03-14 11:01] LABS: POC GLUCOSE 126 mg/dL (70-99)
[2018-03-14] MEDS: METOPROLOL TART IMMED RELEASE 25 MG TABLET. PO (11:09)
[2018-03-14] MEDS: ASPIRIN 325 MG TABLET PO (11:09)
[2018-03-14] MEDS: LACTOBACILLUS RHAMNOSUS GG 1 CAPSULE. PO ×2 (11:15→21:45)
[2018-03-14 17:16] LABS: POC GLUCOSE 117 mg/dL (70-99)
[2018-03-14] MEDS: SIMVASTATIN 40 MG TABLET. PO (21:45)
[2018-03-14 21:48] LABS: POC GLUCOSE 115 mg/dL (70-99)
[2018-03-15] MEDS: PIPERACILLIN/TAZOBACTAM 4.5 GM in IV NORMAL SALINE 100ML 100 ML IV ×4 (00:36→17:26)
[2018-03-15] MEDS: PANTOPRAZOLE 40 MG TABLET.DR. PO ×2 (07:40→10:24)
[2018-03-15] MEDS: oxyCODONE/APAP 5/325 1 TAB TABLET PO ×4 (07:41→22:08)
[2018-03-15] MEDS: INSULIN ASPART 300 UNITS/3 ML INSULN.PEN SQ ×3 (08:00→17:00)
[2018-03-15 08:10] LABS: ADD MAN DIFF? NO
[2018-03-15 08:13] LABS: POC GLUCOSE 119 mg/dL (70-99)
[2018-03-15 08:42] LABS: ANION GAP 11 (6-14); BASO % 0 % (0-3); BLOOD UREA NITROGEN 6 mg/dL (8-26); CALCIUM 7.7 mg/dL (8.5-10.1); CARBON DIOXIDE 23 mmol/L (21-32); CHLORIDE 102 mmol/L (98-107); CREATININE 1.1 mg/dL (0.7-1.3); EOS # 0.2 x10^3/uL (0.0-0.7); EOS % 2 % (0-3); GFR 67.6; GLUCOSE 132 mg/dL (70-99); HEMATOCRIT 38.4 % (39.0-53.0); HEMOGLOBIN 11.6 g/dL (13.0-17.5); LYMPH # 0.7 x10^3/uL (1.0-4.8); LYMPH % 6 % (24-48); MEAN CORPUSCULAR HEMOGLOBIN 23 pg (25-35); MEAN CORPUSCULAR HGB CONC 30 g/dL (31-37); MEAN CORPUSCULAR VOLUME 76 fL (79-100); MONO # 0.6 x10^3/uL (0.0-1.1); MONO % 6 % (0-9); NEUT # 9.5 x10^3uL (1.8-7.7); NEUT % 86 % (31-73); POTASSIUM 3.8 mmol/L (3.5-5.1); RED BLOOD COUNT 5.05 x10^6/uL (4.30-5.70); RED CELL DISTRIBUTION WIDTH 19.1 % (11.5-14.5); SODIUM 136 mmol/L (136-145); WHITE BLOOD COUNT 11.1 x10^3/uL (4.0-11.0)
[2018-03-15 08:52] LABS: PLATELET COUNT 919 x10^3/uL (140-400)
[2018-03-15] MEDS: LACTOBACILLUS RHAMNOSUS GG 1 CAPSULE. PO ×2 (10:24→22:08)
[2018-03-15] MEDS: ASPIRIN 325 MG TABLET PO (10:24)
[2018-03-15] MEDS: METOPROLOL TART IMMED RELEASE 25 MG TABLET. PO (10:25)
[2018-03-15 12:16] LABS: POC GLUCOSE 174 mg/dL (70-99)
[2018-03-15 17:11] LABS: POC GLUCOSE 137 mg/dL (70-99)
[2018-03-15] MEDS: IV NORMAL SALINE 1000ML BAG 1,000 ML IV (17:26)
[2018-03-15 21:08] LABS: POC GLUCOSE 140 mg/dL (70-99)
[2018-03-15] MEDS: SIMVASTATIN 40 MG TABLET. PO (22:08)
[2018-03-16 05:27] LABS: ADD MAN DIFF? NO
[2018-03-16] MEDS: PIPERACILLIN/TAZOBACTAM 4.5 GM in IV NORMAL SALINE 100ML 100 ML IV ×4 (05:29→17:43)
[2018-03-16 05:51] LABS: BASO % 0 % (0-3); EOS # 0.3 x10^3/uL (0.0-0.7); EOS % 3 % (0-3); HEMATOCRIT 34.4 % (39.0-53.0); HEMOGLOBIN 10.6 g/dL (13.0-17.5); LYMPH # 0.9 x10^3/uL (1.0-4.8); LYMPH % 8 % (24-48); MEAN CORPUSCULAR HEMOGLOBIN 24 pg (25-35); MEAN CORPUSCULAR HGB CONC 31 g/dL (31-37); MEAN CORPUSCULAR VOLUME 76 fL (79-100); MONO # 0.7 x10^3/uL (0.0-1.1); MONO % 7 % (0-9); NEUT # 8.6 x10^3uL (1.8-7.7); NEUT % 82 % (31-73); PLATELET COUNT 812 x10^3/uL (140-400); RED CELL DISTRIBUTION WIDTH 19.6 % (11.5-14.5); WHITE BLOOD COUNT 10.6 x10^3/uL (4.0-11.0)
[2018-03-16 06:02] LABS: ANION GAP 8 (6-14); BLOOD UREA NITROGEN 7 mg/dL (8-26); CALCIUM 7.5 mg/dL (8.5-10.1); CARBON DIOXIDE 26 mmol/L (21-32); CHLORIDE 105 mmol/L (98-107); GFR 75.5; GLUCOSE 98 mg/dL (70-99); SODIUM 139 mmol/L (136-145)
[2018-03-16] MEDS: INSULIN ASPART 300 UNITS/3 ML INSULN.PEN SQ ×3 (07:51→17:00)
[2018-03-16] MEDS: LACTOBACILLUS RHAMNOSUS GG 1 CAPSULE. PO ×2 (07:51→20:44)
[2018-03-16] MEDS: oxyCODONE/APAP 5/325 1 TAB TABLET PO ×2 (07:53→17:44)
[2018-03-16] MEDS: IV NORMAL SALINE 1000ML BAG 1,000 ML IV (07:54)
[2018-03-16] MEDS: METOPROLOL TART IMMED RELEASE 25 MG TABLET. PO (07:54)
[2018-03-16 07:56] LABS: POC GLUCOSE 106 mg/dL (70-99)
[2018-03-16] MEDS ORDERED: CONTRAST GIVEN MC (09:30)
[2018-03-16] MEDS: IOHEXOL 300 MG/ML 100ML VIAL. IV (10:46)
[2018-03-16] MEDS: IOHEXOL 240 MG/ML 50ML VIAL. PO (10:47)
[2018-03-16 12:18] LABS: POC GLUCOSE 109 mg/dL (70-99)
[2018-03-16] MEDS: NYSTATIN TOPICAL POWDER 15GM BOTTLE. TP ×2 (12:29→20:46)
[2018-03-16] MEDS: ASPIRIN 325 MG TABLET PO (14:14)
[2018-03-16 17:07] LABS: POC GLUCOSE 134 mg/dL (70-99)
[2018-03-16 20:31] LABS: POC GLUCOSE 122 mg/dL (70-99)
[2018-03-16] MEDS: SIMVASTATIN 40 MG TABLET. PO (20:44)
[2018-03-16] MEDS: traMADol 50 MG TABLET PO (20:45)
[2018-03-17] MEDS: PIPERACILLIN/TAZOBACTAM 4.5 GM in IV NORMAL SALINE 100ML 100 ML IV ×4 (00:32→17:46)
[2018-03-17] MEDS: oxyCODONE/APAP 5/325 1 TAB TABLET PO ×2 (00:36→10:07)
[2018-03-17] MEDS: IV NORMAL SALINE 1000ML BAG 1,000 ML IV ×2 (05:00→21:12)
[2018-03-17] MEDS: BUPIVAC MPF-EPI 0.5%-1:200000 30 ML VIAL. INJ (06:00)
[2018-03-17] MEDS ORDERED: ONDANSETRON PF 4 MG/2 ML VIAL. IV (07:00)
[2018-03-17] MEDS ORDERED: fentaNYL PF VIAL 100 MCG/2 ML VIAL IV ×2 (07:00)
[2018-03-17] MEDS ORDERED: LIDOCAINE 1% PF 2 ML VIAL. ID (07:00)
[2018-03-17] MEDS: IV RINGERS,LACTATED 1000ML 1,000 ML IV (07:00)
[2018-03-17] MEDS ORDERED: PROCHLORPERAZINE 10 MG/2 ML VIAL. IV (07:00)
[2018-03-17] MEDS ORDERED: MORPHINE SULFATE 4 MG/ML DISP.SYRIN. IV (07:00)
[2018-03-17] MEDS: PANTOPRAZOLE 40 MG TABLET.DR. PO (07:30)
[2018-03-17] MEDS: INSULIN ASPART 300 UNITS/3 ML INSULN.PEN SQ ×3 (08:00→17:00)
[2018-03-17 08:01] LABS: POC GLUCOSE 108 mg/dL (70-99)
[2018-03-17 08:23] LABS: ADD MAN DIFF? NO
[2018-03-17 08:38] LABS: BASO % 1 % (0-3); EOS # 0.3 x10^3/uL (0.0-0.7); EOS % 3 % (0-3); HEMATOCRIT 31.7 % (39.0-53.0); HEMOGLOBIN 9.9 g/dL (13.0-17.5); LYMPH # 0.6 x10^3/uL (1.0-4.8); LYMPH % 8 % (24-48); MEAN CORPUSCULAR HEMOGLOBIN 24 pg (25-35); MEAN CORPUSCULAR HGB CONC 31 g/dL (31-37); MEAN CORPUSCULAR VOLUME 77 fL (79-100); MONO # 0.5 x10^3/uL (0.0-1.1); MONO % 6 % (0-9); NEUT # 7.1 x10^3uL (1.8-7.7); NEUT % 83 % (31-73); PLATELET COUNT 698 x10^3/uL (140-400); RED BLOOD COUNT 4.15 x10^6/uL (4.30-5.70); RED CELL DISTRIBUTION WIDTH 19.6 % (11.5-14.5); WHITE BLOOD COUNT 8.6 x10^3/uL (4.0-11.0)
[2018-03-17 08:50] LABS: ALBUMIN 1.7 g/dL (3.4-5.0); ALBUMIN/GLOBULIN RATIO 0.4 (1.0-1.7); ALK PHOS 71 U/L (46-116); ALT (SGPT) 18 U/L (16-63); ANION GAP 8 (6-14); AST (SGOT) 20 U/L (15-37); BLOOD UREA NITROGEN 6 mg/dL (8-26); BUN/CREATININE RATIO 7 (6-20); CALCIUM 7.8 mg/dL (8.5-10.1); CARBON DIOXIDE 25 mmol/L (21-32); CHLORIDE 105 mmol/L (98-107); CREATININE 0.9 mg/dL (0.7-1.3); GFR 85.2; GLUCOSE 103 mg/dL (70-99); POTASSIUM 3.7 mmol/L (3.5-5.1); SODIUM 138 mmol/L (136-145); TOTAL BILIRUBIN 0.3 mg/dL (0.2-1.0); TOTAL PROTEIN 5.6 g/dL (6.4-8.2)
[2018-03-17] MEDS: METOPROLOL TART IMMED RELEASE 25 MG TABLET. PO (10:05)
[2018-03-17] MEDS: LACTOBACILLUS RHAMNOSUS GG 1 CAPSULE. PO ×2 (10:05→21:12)
[2018-03-17] MEDS: ASPIRIN 325 MG TABLET PO (10:05)
[2018-03-17] MEDS: DOCUSATE SODIUM 100 MG CAPSULE. PO (10:06)
[2018-03-17] MEDS: NYSTATIN TOPICAL POWDER 15GM BOTTLE. TP ×2 (10:07→21:12)
[2018-03-17 11:48] LABS: POC GLUCOSE 112 mg/dL (70-99)
[2018-03-17 16:24] LABS: POC GLUCOSE 109 mg/dL (70-99)
[2018-03-17] MEDS: oxyCODONE/APAP 10/325 1 TAB TABLET PO (17:46)
[2018-03-17] MEDS: SIMVASTATIN 40 MG TABLET. PO (21:12)
[2018-03-17] MEDS: traMADol 50 MG TABLET PO (21:13)
[2018-03-18] MEDS: PIPERACILLIN/TAZOBACTAM 4.5 GM in IV NORMAL SALINE 100ML 100 ML IV ×4 (00:07→17:51)
[2018-03-18 07:23] LABS: POC GLUCOSE 114 mg/dL (70-99)
[2018-03-18] MEDS: INSULIN ASPART 300 UNITS/3 ML INSULN.PEN SQ ×3 (08:00→17:00)
[2018-03-18] MEDS: LACTOBACILLUS RHAMNOSUS GG 1 CAPSULE. PO ×2 (09:16→20:48)
[2018-03-18] MEDS: ASPIRIN 325 MG TABLET PO (09:16)
[2018-03-18] MEDS: PANTOPRAZOLE 40 MG TABLET.DR. PO (09:17)
[2018-03-18] MEDS: METOPROLOL TART IMMED RELEASE 25 MG TABLET. PO (09:17)
[2018-03-18] MEDS: oxyCODONE/APAP 10/325 1 TAB TABLET PO ×2 (09:17→17:52)
[2018-03-18] MEDS: NYSTATIN TOPICAL POWDER 15GM BOTTLE. TP ×2 (09:18→20:49)
[2018-03-18 11:27] LABS: POC GLUCOSE 135 mg/dL (70-99)
[2018-03-18 17:07] LABS: POC GLUCOSE 97 mg/dL (70-99)
[2018-03-18 20:31] LABS: POC GLUCOSE 104 mg/dL (70-99)
[2018-03-18] MEDS: SIMVASTATIN 40 MG TABLET. PO (20:48)
[2018-03-18] MEDS: IV NORMAL SALINE 1000ML BAG 1,000 ML IV (20:48)
[2018-03-18] MEDS: traMADol 50 MG TABLET PO (20:49)
== END 2018-03-18 22:35 | disposition home or self-care (01) | DRG 871 ==
LOC: 4 NORTH 03-01 14:02 → ER 13:38 → 1 WEST ICU 14:30
PROC: 0W9G30Z Drainage of Peritoneal Cavity with Drainage Device, Percutaneous Approach (ICD-10-PCS; 2018-03-06)
PROC: 0W9F30Z Drainage of Abdominal Wall with Drainage Device, Percutaneous Approach (ICD-10-PCS; principal; 2018-03-10)
DX: A41.9 Sepsis, unspecified organism (principal); K68.9 Other disorders of retroperitoneum; E43 Unspecified severe protein-calorie malnutrition; J90 Pleural effusion, not elsewhere classified; K56.609 Unspecified intestinal obstruction, unspecified as to partial versus complete obstruction; K57.40 Diverticulitis of both small and large intestine with perforation and abscess without bleeding; D50.9 Iron deficiency anemia, unspecified; E11.9 Type 2 diabetes mellitus without complications; J98.11 Atelectasis; K56.7 Ileus, unspecified; I25.10 Atherosclerotic heart disease of native coronary artery without angina pectoris; K21.9 Gastro-esophageal reflux disease without esophagitis; I10 Essential (primary) hypertension; M19.90 Unspecified osteoarthritis, unspecified site; E78.5 Hyperlipidemia, unspecified; Z68.31 Body mass index [BMI] 31.0-31.9, adult; Z79.82 Long term (current) use of aspirin; Z82.49 Family history of ischemic heart disease and other diseases of the circulatory system; Z95.1 Presence of aortocoronary bypass graft; Z99.3 Dependence on wheelchair
CPT/HCPCS: 36415; 49406; 74018; 74177; 80048; 80053; 80076; 81001; 82553; 82962; 83540; 83550; 83605; 83690; 85007; 85025; 85610; 85651; 85730; 87040; 87071; 87075; 87086; 87205; 87641; 90732; 93005; 96361; 96365; 96375; 97161-GP; 97165-GO; 99152; 99153; 99291; 99291-25; A4215; C1729; C1894; J0744; J1200; J1815; J2020; J2250; J2405; J2543; J3010; J3490; J7030; J7040; J7042; J7120; Q9966; Q9967

== ENCOUNTER → 2018-10-07 | Outpatient (CLI) | payer OTHER, MEDICAID ==
[2018-07-07 09:00] VITALS: BP 147/75
[~2018-10-07] MED LIST: ACET325T9 PO; ASPI325T8 PO; ATOR40TA59 PO; CALC200T3 PO; CALC300T5 PO; GLIP5TAB10 PO; HYDR12.53 PO; LISI-334 PO; METF10007 PO; METF500T16 PO; METO25TA4 PO; NABU750T PO; PANT20TA2 PO; SIMV40TA3 PO
== END ==
LOC: PMGORTHO 08:11
PROVIDERS: ATTEND Orthopaedic Surgery

== ENCOUNTER → 2018-10-21 | Day surgery (SDC) | payer MEDICAID, OTHER ==
[~2018-10-21] MED LIST changes: -HYDR12.53 PO; +HYDR12.575 PO; +IV RINGERS,LACTATED 1000ML 1,000 ML IV SCH; +LISI-130 PO; +PROPOFOL 40 ML IV ONE
--- NOTE | 2018-10-21 07:32 | HP ---
ADMIT DATE: 10/21/2018 REFERRING PHYSICIAN: Dr. Perry. HISTORY OF PRESENT ILLNESS: A 63-year-old male with past medical history significant for hyperlipidemia, diabetes, hypertension, diverticulitis seen after diverticular attack with an abscess requiring percutaneous drainage here for surveillance colonoscopy. Also, notes increased heartburn despite taking Protonix and Tums as needed. No dysphagia or weight loss, was encountered and he is here for further evaluation. PAST MEDICAL HISTORY: Hypertension, hyperlipidemia, diabetes, osteoarthrosis, history of CABG. ALLERGIES: None. MEDICATIONS: Include Tylenol, aspirin, atorvastatin, calcium, lisinopril, metformin, metoprolol, pantoprazole, ex-smoker, nondrinker. REVIEW OF SYSTEMS: As per records. PHYSICAL EXAMINATION: GENERAL: Reveals a well-nourished, well-developed male. VITAL SIGNS: Temperature is 97, pulse is 97, respiratory rate 18. HEENT: Normocephalic and atraumatic head. Pupils and extraocular muscles are not tested. Sclerae anicteric. NECK: Supple. LUNGS: Clear. CARDIOVASCULAR: Reveals an S1, S2 without S3, S4 or appreciable murmur. ABDOMEN: Soft abdomen, normal bowel sounds without appreciable hepatosplenomegaly. EXTREMITIES: Reveals no cyanosis, clubbing or edema. IMPRESSION AND PLAN: 1. Heartburn with breakthrough symptoms. Differential includes Garber's, achalasia, malignancy. We, therefore, recommend upper endoscopy with possible biopsy and dilatation. 2. Diverticulitis. Surveillance colonoscopy is recommended. Risks and benefits were discussed with the patient and is willing to proceed at this time. WILLIAM STERN MD DR: SUMAN/marilin JOB#: [id number] / [id number]
[2018-10-21 08:10] VITALS: BP 139/69
--- NOTE | 2018-10-23 18:07 | PATHOLOGY ---
[facility] Accession Number: [id number] . 01 Material submitted: . DISTAL ESOPHAGUS BX . 01 Clinical history: . Screening . 02 Diagnosis: Esophageal biopsy, distal esophagus: - Segments of hyperplastic squamous esophageal mucosa consistent with reflux esophagitis. (JPM:plumber maintenance; 10/23/2018) MBR/10/23/2018 . 02 Comment: Sections of the distal esophageal biopsy reveal segments of tangentially oriented, hyperplastic squamous esophageal mucosa. The findings are consistent with reflux esophagitis. There is no evidence of Garber's change, dysplasia, or malignancy. (JPM:plumber maintenance; 10/23/2018) . 02 Electronically signed: . Sravan Velasco MD, Pathologist NPI- [id number] . 01 Gross description: . Received in formalin labeled "Morteza Menendez, distal esophagus BX," are 3 segments of de jesus soft tissue measuring 0.9 x 0.8 x 0.1 cm in aggregate dimensions and ranging from 0.3 to 0.4 cm in maximum dimension. The specimen is submitted entirely in cassette A1. (TSD; 10/21/2018) TOB/TOB . 02 Microscopic: . . . 02 Pathologist provided ICD-10: K21.0 . 02 CPT . 788898 Specimen Comment: A courtesy copy of this report has been sent to Specimen Comment: [phone]. Specimen Comment: Report sent to Performed at: 01 [facility] [address], [place] [id number] MD Cruz Hughes MD Phone: [phone] Performed at: 02 [facility] [address], [place] [id number] MD Sravan Velasco MD Phone: [phone]
== END | disposition home or self-care (01) ==
LOC: ENDOS 05:57 → EEVIPCON 07:00
PROVIDERS: ATTEND Internal Medicine Gastroenterology
DX: K57.30 Diverticulosis of large intestine without perforation or abscess without bleeding (principal); K64.0 First degree hemorrhoids; K21.0 Gastro-esophageal reflux disease with esophagitis; I10 Essential (primary) hypertension; E78.5 Hyperlipidemia, unspecified; E11.9 Type 2 diabetes mellitus without complications; Z95.1 Presence of aortocoronary bypass graft; M19.90 Unspecified osteoarthritis, unspecified site; Z79.82 Long term (current) use of aspirin; Z79.899 Other long term (current) drug therapy; Z79.84 Long term (current) use of oral hypoglycemic drugs; Z87.891 Personal history of nicotine dependence
CPT/HCPCS: 43239; 45378; 88305; J2704

== ENCOUNTER 2019-01-01 00:12 | Inpatient (IN) | payer MEDICAID, OTHER ==
[~2019-01-01] VITALS: Ht 177.8 cm; Wt 100.8 kg
[2019-01-01] VITALS (11 sets, daily range): BP systolic 114–166; BP diastolic 63–82
[~2019-01-01 00:12] MED LIST changes: -IV RINGERS,LACTATED 1000ML 1,000 ML IV SCH; -PROPOFOL 40 ML IV ONE
--- NOTE | 2019-01-01 00:40 | PHYS DOC ---
Past Medical History Past Medical History: Arthritis, Diabetes-Type II, High Cholesterol, Heart Disease, Hypertension Past Surgical History: Coronary Bypass Surgery Alcohol Use: None Drug Use: None Adult General Chief Complaint Chief Complaint: CHEST PAIN HPI HPI Patient is a 63 year old male who presents with shortness of breath that began 2 days ago. Getting worse over time. Worse with exertion. Patient notes a low- grade fever. Denies any cough. Denies any new leg swelling. Patient is wheelchair confined at baseline due to arthritis in his knees and inability to straighten them.[] Review of Systems Review of Systems Constitutional: Denies fever or chills [] Eyes: Denies change in visual acuity, redness, or eye pain [] HENT: Denies nasal congestion or sore throat [] Respiratory: See history of present illness[] Cardiovascular: No chest pain or palpitations[] GI: Denies abdominal pain, nausea, vomiting, bloody stools or diarrhea [] : Denies dysuria or hematuria [] Musculoskeletal: Denies back pain or joint pain [] Integument: Denies rash or skin lesions [] Neurologic: Denies headache, focal weakness or sensory changes [] Endocrine: Denies polyuria or polydipsia [] All other systems were reviewed and found to be within normal limits, except as documented in this note. Current Medications Current Medications Current Medications Medications (Trade) Dose Ordered Sig/Tala Start Time Stop Time Status Last Admin Dose Admin Aspirin (Children'S Aspirin) 324 mg 1X ONCE 01/01/19 01:00 01/01/19 01:01 DC 01/01/19 01:00 324 MG Info (CONTRAST GIVEN -- Rx MONITORING) 1 each PRN DAILY PRN 01/01/19 02:45 01/03/19 02:44 Iohexol (Omnipaque 350 Mg/ml) 75 ml 1X ONCE 01/01/19 03:00 01/01/19 03:01 DC 01/01/19 02:46 75 ML Allergies Allergies Allergies Coded Allergies Type Severity Reaction Last Updated Verified No Known Drug Allergies 10/21/18 No Physical Exam Physical Exam Constitutional: Well developed, well nourished, no acute distress, non-toxic appearance. [] HENT: Normocephalic, atraumatic, bilateral external ears normal, oropharynx moist, no oral exudates, nose normal. [] Eyes: PERRLA, EOMI, conjunctiva normal, no discharge. [] Neck: Normal range of motion, no tenderness, supple, no stridor. [] Cardiovascular:Heart rate is tachycardic with a regular rhythm, no murmur [] Lungs & Thorax: Bilateral breath sounds clear to auscultation [] Abdomen: Bowel sounds normal, soft, no tenderness, no masses, no pulsatile masses. [] Skin: Warm, dry, no erythema, no rash. [] Back: No tenderness, no CVA tenderness. [] Extremities: No tenderness, no cyanosis, no clubbing, ROM intact, bilateral lower extremity edema, symmetric, 1+. [] Neurologic: Alert and oriented X 3, normal motor function, normal sensory function, no focal deficits noted. [] Psychologic: Affect normal, judgement normal, mood normal. [] Current Patient Data Vital Signs Vital Signs Date Time Temp Pulse Resp B/P (MAP) Pulse Ox O2 Delivery O2 Flow Rate FiO2 01/01/19 03:10 109 159/84 (109) 92 Nasal Cannula 3.0 01/01/19 00:23 100.1 22 100.1 Lab Values Laboratory Tests Test 01/01/19 00:44 01/01/19 00:54 01/01/19 01:20 01/01/19 01:51 White Blood Count 12.9 x10^3/uL (4.0-11.0) H Red Blood Count 3.31 x10^6/uL (4.30-5.70) L Hemoglobin 6.6 g/dL (13.0-17.5) *L Hematocrit 22.5 % (39.0-53.0) L Mean Corpuscular Volume 68 fL (79-100) L Mean Corpuscular Hemoglobin 20 pg (25-35) L Mean Corpuscular Hemoglobin Concent 30 g/dL (31-37) L Red Cell Distribution Width 18.4 % (11.5-14.5) H Platelet Count 684 x10^3/uL (140-400) H Neutrophils (%) (Auto) 87 % (31-73) H Lymphocytes (%) (Auto) 5 % (24-48) L Monocytes (%) (Auto) 6 % (0-9) Eosinophils (%) (Auto) 0 % (0-3) Basophils (%) (Auto) 2 % (0-3) Neutrophils # (Auto) 11.2 x10^3uL (1.8-7.7) H Lymphocytes # (Auto) 0.6 x10^3/uL (1.0-4.8) L Monocytes # (Auto) 0.8 x10^3/uL (0.0-1.1) Eosinophils # (Auto) 0.0 x10^3/uL (0.0-0.7) Basophils # (Auto) 0.2 x10^3/uL (0.0-0.2) Platelet Estimate Pending Prothrombin Time 14.0 SEC (11.7-14.0) Prothrombin Time INR 1.1 (0.8-1.1) D-Dimer (Alyssa) 3.96 ug/mlFEU (0.00-0.50) H Sodium Level 136 mmol/L (136-145) Potassium Level 4.7 mmol/L (3.5-5.1) Chloride Level 101 mmol/L (98-107) Carbon Dioxide Level 24 mmol/L (21-32) Anion Gap 11 (6-14) Blood Urea Nitrogen 21 mg/dL (8-26) Creatinine 1.2 mg/dL (0.7-1.3) Estimated GFR (Cockcroft-Gault) 61.0 BUN/Creatinine Ratio 18 (6-20) Glucose Level 166 mg/dL (70-99) H Calcium Level 9.2 mg/dL (8.5-10.1) Magnesium Level 1.9 mg/dL (1.8-2.4) Total Bilirubin 0.6 mg/dL (0.2-1.0) Aspartate Amino Transferase (AST) 23 U/L (15-37) Alanine Aminotransferase (ALT) 20 U/L (16-63) Alkaline Phosphatase 96 U/L (46-116) Troponin I Quantitative < 0.017 ng/mL (0.000-0.055) LO-Gsp-C-Type Natriuretic Peptide 1561 pg/mL (0-124) H Total Protein 7.4 g/dL (6.4-8.2) Albumin 2.5 g/dL (3.4-5.0) L Albumin/Globulin Ratio 0.5 (1.0-1.7) L Thyroid Stimulating Hormone (TSH) 1.020 uIU/mL (0.358-3.74) POC Troponin I 0.03 ng/ml (<0.08) Urine Collection Type Unknown Urine Color Yellow Urine Clarity Clear Urine pH 5.5 Urine Specific [place] 1.020 Urine Protein 100 mg/dL (NEG-TRACE) Urine Glucose (UA) Negative mg/dL (NEG) Urine Ketones (Stick) Negative mg/dL (NEG) Urine Blood Trace (NEG) Urine Nitrite Negative (NEG) Urine Bilirubin Negative (NEG) Urine Urobilinogen Dipstick 0.2 mg/dL (0.2 mg/dL) Urine Leukocyte Esterase Negative (NEG) Urine RBC 0 /HPF (0-2) Urine WBC Occ /HPF (0-4) Urine Squamous Epithelial Cells Occ /LPF Urine Amorphous Sediment Present /HPF Urine Bacteria 0 /HPF (0-FEW) Urine Hyaline Casts Occasional /HPF Urine Mucus Mod /LPF Stool Occult Blood Positive (NEG) Influenza Type A Antigen Negative (NEGATIVE) Influenza Type B Antigen Negative (NEGATIVE) Laboratory Tests 01/01/19 00:44 Laboratory Tests 01/01/19 00:44 EKG EKG EKG shows a sinus tachycardia at 114 bpm, leftward axis at -1�, normal QTC at [address] elevation, nonspecific ST-T wave changes. EKG was compared with one obtained 02/28/2018, no acute changes are present. EKG was interpreted at 0035[] Radiology/Procedures Radiology/Procedures PORTABLE CHEST 1V AP chest x-ray HISTORY: Shortness of breath. FINDINGS: Median sternotomy and coronary bypass. Cardiomegaly. Extensive opacity throughout the right lung. Left lung is clear. No pneumothorax. There may be slight elevation of the right diaphragm. IMPRESSION: Extensive multilobar right pulmonary infiltrates could represent multilobar pneumonia or asymmetric pulmonary edema. CT angiography chest with contrast PQRS statement: CT scans at this facility use dose reduction including either automated exposure control, iterative reconstructions, and /or weight based radiation dosing via mA and kV modification when appropriate to reduce radiation dose to as low as reasonably achievable. HISTORY: Shortness of breath, elevated d-dimer, hypoxia. TECHNIQUE: Helical CT imaging of the chest with multiplanar 3-D MIP reconstructions of the pulmonary arteries to assess for emboli with 75 mL Omnipaque 350 intravenous contrast. FINDINGS: Cardiomegaly. Median sternotomy and coronary bypass. [place] coronary calcified plaque. Thoracic aorta and esophagus are unremarkable. No pulmonary artery emboli. No large adenopathy with numerous subcentimeter right and left hilar and mediastinal lymph nodes. Mild discoid atelectasis left lung base. There is extensive consolidation and groundglass opacities throughout the right lung with air bronchograms. Minimal dependent right pleural effusion at the posterior diaphragm no drainable volume of fluid. IMPRESSION: 1. No pulmonary artery emboli. 2. Extensive pulmonary opacities throughout the right lung. This is likely multilobar pneumonia. Asymmetric pulmonary edema or pneumonitis are less likely considerations. Follow-up CT imaging in 3-6 months is advised to document this resolves to exclude the unlikely possibility of nonmasslike lung adenocarcinoma for these findings.[] Course & Med Decision Making Course & Med Decision Making Pertinent Labs and Imaging studies reviewed. (See chart for details) ED course and medical decision making: Patient arrived, was placed in bed, in tolerated exam well. Patient was noted to be hypoxic on room air's was placed on supplemental oxygen. After the return of his CBC showing anemia, rectal exam was performed that showed brown stool. No black tarry stools, no gross bleeding. The Hemoccult was noted to be positive so patient was given a single dose of Protonix. He tolerated this well. He was given Levaquin for the pneumonia. He was also typed and crossed for 2 units of packed red cells given his significant anemia. He was admitted in improved condition.[] Dragon Disclaimer Dragon Disclaimer This electronic medical record was generated, in whole or in part, using a voice recognition dictation system. Departure Departure Impression: Primary Impression: Pneumonia Additional Impressions: Anemia Hypoxia GI bleed Disposition: ADMITTED INPATIENT Admitting Physician: Sujata Perry Condition: GUARDED Referrals: UNKNOWN PCP NAME (PCP) Problem Qualifiers Primary Impression: Pneumonia Pneumonia type: due to unspecified organism Laterality: right Lung location : unspecified part of lung Qualified Codes: J18.9 - Pneumonia, unspecified organism Additional Impressions: Anemia Anemia type: unspecified type Qualified Codes: D64.9 - Anemia, unspecified GI bleed GI bleed type/associated pathology: unspecified gastrointestinal hemorrhage type Qualified Codes: K92.2 - Gastrointestinal hemorrhage, unspecified JOSE G HOPE DO Jan 01, 2019 00:40
[2019-01-01] MEDS ORDERED: ASPIRIN CHEWABLE 81 MG TABLET. PO ONE (01:00)
[2019-01-01 01:02] LABS: BASO # 0.2 x10^3/uL (0.0-0.2); BASO % 2 % (0-3); EOS % 0 % (0-3); HEMATOCRIT 22.5 % (39.0-53.0); LYMPH # 0.6 x10^3/uL (1.0-4.8); LYMPH % 5 % (24-48); MEAN CORPUSCULAR HEMOGLOBIN 20 pg (25-35); MEAN CORPUSCULAR HGB CONC 30 g/dL (31-37); MEAN CORPUSCULAR VOLUME 68 fL (79-100); MONO # 0.8 x10^3/uL (0.0-1.1); MONO % 6 % (0-9); NEUT # 11.2 x10^3uL (1.8-7.7); NEUT % 87 % (31-73); PLATELET COUNT 684 x10^3/uL (140-400); RED BLOOD COUNT 3.31 x10^6/uL (4.30-5.70); RED CELL DISTRIBUTION WIDTH 18.4 % (11.5-14.5); WHITE BLOOD COUNT 12.9 x10^3/uL (4.0-11.0)
[2019-01-01 01:08] LABS: HEMOGLOBIN 6.6 g/dL (13.0-17.5)
[2019-01-01 01:19] LABS: CALCIUM 9.2 mg/dL (8.5-10.1); CREATININE 1.2 mg/dL (0.7-1.3); POTASSIUM 4.7 mmol/L (3.5-5.1)
[2019-01-01 01:25] LABS: ALBUMIN 2.5 g/dL (3.4-5.0); ALBUMIN/GLOBULIN RATIO 0.5 (1.0-1.7); MAGNESIUM 1.9 mg/dL (1.8-2.4); TOTAL BILIRUBIN 0.6 mg/dL (0.2-1.0); TOTAL PROTEIN 7.4 g/dL (6.4-8.2)
[2019-01-01 01:33] LABS: BILIRUBIN,URINE NEGATIVE (NEG); CLARITY,URINE CLEAR; COLOR,URINE YELLOW; NITRITE,URINE NEGATIVE (NEG); PH,URINE 5.5; PROTEIN,URINE 100 mg/dL (NEG-TRACE); UROBILINOGEN,URINE 0.2 mg/dL (0.2 mg/dL)
[2019-01-01 01:37] LABS: D-DIMER 3.96 ug/mlFEU (0.00-0.50)
[2019-01-01 01:52] LABS: INFLUENZA A PATIENT NEGATIVE (NEGATIVE); INFLUENZA B PATIENT NEGATIVE (NEGATIVE)
[2019-01-01 01:56] LABS: BACTERIA,URINE 0 /HPF (0-FEW); RBC,URINE 0 /HPF (0-2); SQUAMOUS EPITHELIAL CELL,UR OCC /LPF; WBC,URINE OCC /HPF (0-4)
[2019-01-01 01:57] LABS: AMORPHOUS SEDIMENT,UR PRESENT /HPF; HYALINE CASTS, URINE OCCASIONAL /HPF
[2019-01-01] MEDS ORDERED: CONTRAST GIVEN. MC PRN (02:45)
[2019-01-01] MEDS ORDERED: IOHEXOL 350 MG/ML 100 ML VIAL. IV ONE (03:00)
--- NOTE | 2019-01-01 03:24 | RAD ---
CT angiography chest with contrast PQRS statement: CT scans at this facility use dose reduction including either automated exposure control, iterative reconstructions, and /or weight based radiation dosing via mA and kV modification when appropriate to reduce radiation dose to as low as reasonably achievable. HISTORY: Shortness of breath, elevated d-dimer, hypoxia. TECHNIQUE: Helical CT imaging of the chest with multiplanar 3-D MIP reconstructions of the pulmonary arteries to assess for emboli with 75 mL Omnipaque 350 intravenous contrast. FINDINGS: Cardiomegaly. Median sternotomy and coronary bypass. [place] coronary calcified plaque. Thoracic aorta and esophagus are unremarkable. No pulmonary artery emboli. No large adenopathy with numerous subcentimeter right and left hilar and mediastinal lymph nodes. Mild discoid atelectasis left lung base. There is extensive consolidation and groundglass opacities throughout the right lung with air bronchograms. Minimal dependent right pleural effusion at the posterior diaphragm no drainable volume of fluid. IMPRESSION: 1. No pulmonary artery emboli. 2. Extensive pulmonary opacities throughout the right lung. This is likely multilobar pneumonia. Asymmetric pulmonary edema or pneumonitis are less likely considerations. Follow-up CT imaging in 3-6 months is advised to document this resolves to exclude the unlikely possibility of nonmasslike lung adenocarcinoma for these findings. Electronically signed by: Matthias Odonnell MD (01/01/2019 3:19 AM) [id number]
[2019-01-01 03:32] LABS: FECAL OB PT POSITIVE (NEG)
--- NOTE | 2019-01-01 03:46 | RAD ---
AP chest x-ray HISTORY: Shortness of breath. FINDINGS: Median sternotomy and coronary bypass. Cardiomegaly. Extensive opacity throughout the right lung. Left lung is clear. No pneumothorax. There may be slight elevation of the right diaphragm. IMPRESSION: Extensive multilobar right pulmonary infiltrates could represent multilobar pneumonia or asymmetric pulmonary edema. Electronically signed by: Matthias Odonnell MD (01/01/2019 3:41 AM) [id number]
[2019-01-01] MEDS ORDERED: ONDANSETRON PF 4 MG/2 ML VIAL. IV PRN ×2 (04:30→09:00)
[2019-01-01] MEDS ORDERED: ACETAMINOPHEN 325 MG TABLET. PO PRN ×3 (04:30→09:00)
[2019-01-01] MEDS ORDERED: diphenhydrAMINE ORAL ELIXIR 12.5 MG/5 ML ML PO PRN (04:45)
[2019-01-01] MEDS ORDERED: PANTOPRAZOLE IV PUSH 40 MG VIAL. IVP ONE (05:00)
[2019-01-01] MEDS ORDERED: PIOG15TA42 PO (05:11)
[2019-01-01] MEDS ORDERED: HYDR453.4 TP (05:16)
[2019-01-01 05:30] LABS: % LYMPHS 5 % (24-48); % MONOS 10 % (0-10); % SEGS 85 % (35-66)
[2019-01-01 05:31] LABS: ANISOCYTOSIS SLIGHT; HYPOCHROMIA MARKED; MICROCYTOSIS MOD; PLT ESTIMATE INCREASED (ADEQUATE); POLYCHROMASIA SLIGHT
--- NOTE | 2019-01-01 06:32 | EKG ---
[facility] [address] [place] [address] Test Date: 2019-01-01 Test Time: 00:32:55 Pat Name: KALYN SANCHEZ Department: Room: 211 1 Gender: M Magneto Repairer: : [id number] Requested By: JOSE G HOPE Order Number: [id number] Reading MD: Fuad Rios Measurements Intervals [place] Rate: 114 P: 3 [place]: 188 QRS: -1 QRSD: 92 T: 31 QT: 308 QTc: 427 Interpretive Statements SINUS TACHYCARDIA LEFTWARD AXIS NONSPECIFIC ST-T WAVE CHANGES. ABNORMAL ECG Electronically Signed On 01-04-2019 9:41:23 BEVELER by Fuad Rios
[2019-01-01] MEDS: IPRATRPIUM/ALBUTEROL 0.5/2.5MG 3 ML NEBU. NEB SCH ×4 (07:32→20:42)
--- NOTE | 2019-01-01 07:40 | PDOC ---
Infectious Disease Note Vital Sign Vital Signs Vital Signs Date Time Temp Pulse Resp B/P (MAP) Pulse Ox O2 Delivery O2 Flow Rate FiO2 01/01/19 05:50 99.1 126 18 166/82 (110) 93 Nasal Cannula 4.0 99.1 Labs Lab Laboratory Tests Test 01/01/19 00:44 01/01/19 00:54 01/01/19 01:20 01/01/19 01:51 White Blood Count 12.9 x10^3/uL (4.0-11.0) Red Blood Count 3.31 x10^6/uL (4.30-5.70) Hemoglobin 6.6 g/dL (13.0-17.5) Hematocrit 22.5 % (39.0-53.0) Mean Corpuscular Volume 68 fL (79-100) Mean Corpuscular Hemoglobin 20 pg (25-35) Mean Corpuscular Hemoglobin Concent 30 g/dL (31-37) Red Cell Distribution Width 18.4 % (11.5-14.5) Platelet Count 684 x10^3/uL (140-400) Neutrophils (%) (Auto) 87 % (31-73) Lymphocytes (%) (Auto) 5 % (24-48) Monocytes (%) (Auto) 6 % (0-9) Eosinophils (%) (Auto) 0 % (0-3) Basophils (%) (Auto) 2 % (0-3) Neutrophils # (Auto) 11.2 x10^3uL (1.8-7.7) Lymphocytes # (Auto) 0.6 x10^3/uL (1.0-4.8) Monocytes # (Auto) 0.8 x10^3/uL (0.0-1.1) Eosinophils # (Auto) 0.0 x10^3/uL (0.0-0.7) Basophils # (Auto) 0.2 x10^3/uL (0.0-0.2) Segmented Neutrophils % 85 % (35-66) Lymphocytes % 5 % (24-48) Monocytes % 10 % (0-10) Platelet Estimate Increased (ADEQUATE) Polychromasia Slight Hypochromasia Marked Anisocytosis Slight Microcytosis Mod Prothrombin Time 14.0 SEC (11.7-14.0) Prothromb Time International Ratio 1.1 (0.8-1.1) D-Dimer (Alyssa) 3.96 ug/mlFEU (0.00-0.50) Sodium Level 136 mmol/L (136-145) Potassium Level 4.7 mmol/L (3.5-5.1) Chloride Level 101 mmol/L (98-107) Carbon Dioxide Level 24 mmol/L (21-32) Anion Gap 11 (6-14) Blood Urea Nitrogen 21 mg/dL (8-26) Creatinine 1.2 mg/dL (0.7-1.3) Estimated GFR (Cockcroft-Gault) 61.0 BUN/Creatinine Ratio 18 (6-20) Glucose Level 166 mg/dL (70-99) Calcium Level 9.2 mg/dL (8.5-10.1) Magnesium Level 1.9 mg/dL (1.8-2.4) Total Bilirubin 0.6 mg/dL (0.2-1.0) Aspartate Amino Transf (AST/SGOT) 23 U/L (15-37) Alanine Aminotransferase (ALT/SGPT) 20 U/L (16-63) Alkaline Phosphatase 96 U/L (46-116) Troponin I Quantitative < 0.017 ng/mL (0.000-0.055) PF-Usg-W-Type Natriuretic Peptide 1561 pg/mL (0-124) Total Protein 7.4 g/dL (6.4-8.2) Albumin 2.5 g/dL (3.4-5.0) Albumin/Globulin Ratio 0.5 (1.0-1.7) Thyroid Stimulating Hormone (TSH) 1.020 uIU/mL (0.358-3.74) Bedside Troponin I 0.03 ng/ml (<0.08) Urine Collection Type Unknown Urine Color Yellow Urine Clarity Clear Urine pH 5.5 Urine Specific [place] 1.020 Urine Protein 100 mg/dL (NEG-TRACE) Urine Glucose (UA) Negative mg/dL (NEG) Urine Ketones (Stick) Negative mg/dL (NEG) Urine Blood Trace (NEG) Urine Nitrite Negative (NEG) Urine Bilirubin Negative (NEG) Urine Urobilinogen Dipstick 0.2 mg/dL (0.2 mg/dL) Urine Leukocyte Esterase Negative (NEG) Urine RBC 0 /HPF (0-2) Urine WBC Occ /HPF (0-4) Urine Squamous Epithelial Cells Occ /LPF Urine Amorphous Sediment Present /HPF Urine Bacteria 0 /HPF (0-FEW) Urine Hyaline Casts Occasional /HPF Urine Mucus Mod /LPF Stool Occult Blood Positive (NEG) Influenza Type A Antigen Negative (NEGATIVE) Influenza Type B Antigen Negative (NEGATIVE) Micro CTA 01/01 IMPRESSION: 1. No pulmonary artery emboli. 2. Extensive pulmonary opacities throughout the right lung. This is likely multilobar pneumonia. Asymmetric pulmonary edema or pneumonitis are less likely considerations. Follow-up CT imaging in 3-6 months is advised to document this resolves to exclude the unlikely possibility of nonmasslike lung adenocarcinoma for these findings. Objective Assessment Fever Leukocytosis CAP Anemia ? GI bleed - h/o Diverticulitis and perf DM Plan Plan of Care Add Zyvox/Zosyn/Doxy - IV given ? GI bleed Add Strep/Legionella antigens Dc further Levofloxacin GI consult - may need Imaging/scope F/u labs and cults Chest discomfort per primary D/w nursing Thank you # [id number] JOSEPH EDWARDS MD Jan 01, 2019 07:40
[2019-01-01] MEDS ORDERED: MORPHINE SULFATE 4 MG/ML VIAL. IV PRN (09:00)
[2019-01-01] MEDS ORDERED: KETOROLAC 15 MG/ML VIAL. IM ONE (09:00)
[2019-01-01] MEDS: PIOGLITAZONE 15 MG TABLET. PO SCH (09:00)
[2019-01-01] MEDS ORDERED: DEXTROSE 50% 25 GM / 50ML DISP.SYRIN. IV PRN (09:00)
[2019-01-01] MEDS ORDERED: MAG HYDROX/ALUMINUM HYD/SIMETH 30 ML ORAL.SUSP PO PRN (09:00)
[2019-01-01] MEDS ORDERED: NICOTINE 21MG PATCH. TD PRN (09:00)
--- NOTE | 2019-01-01 09:04 | PDOC2 ---
GI CONSULT Reason For Consult: GI bleed, h/o diverticulitis HPI: HPI: 63 y/[facility] male from [facility], evaluated in ER for SOA w/ exertion and chest pressure, admitted. Abnormal chest imaging w/ possible pneumonia (but no PE), on atbx per ID. Labs noted for WBC 12.9, Hgb 6.6, MCV 68, BUN 21, Cr 1.2, BNP 1561, D-dimer 3.96. Fecal occult was positive though ER documentation notes rectal exam w/ brown stool and no bleeding. The patient also denies obvious bleeding including hematemesis, hematochezia, and melena. Does note occasional blood streaks in phlegm w/ coughing. We have seen him in the past - h/o perforated diverticulitis requiring IR drain placement. EGD and colonoscopy in 10/2018: Grade A esophagitis (path c/w reflux, no Garber 's), normal stomach, normal duodenum, diverticulosis from rectum to ascending colon, non-bleeding internal hemorrhoids. GERD controlled w/ Prilosec QD. No dysphagia, n/v, change in appetite, abd pain , diarrhea, or constipation. Probably has gained weight. Denies GB, liver, and pancreas history. Chronic arthritis/knee pain on ibuprofen and Tylenol most days. H/o CAD s/p CABG on ASA. PMH: PMH: CAD, HTN, HLD, DM, OA, GERD, diverticulosis/itis - h/o perforation w/ drain placement, hemorrhoids CABG, left elbow surgery FH: Family History: Other (adopted) Social History: Smoke: Quit ALCOHOL: other (no alcohol x 20 years) Drugs: None ROS: GEN: +fever HEENT: Denies blurred vision, sore throat CV: +chest pressure RESP: +SOA GI: Per HPI : Denies hematuria, dysuria ENDO: +weight gain NEURO: Denies confusion, dizziness MSK: +knee pain (chronic) SKIN: Denies jaundice, pruritus Vitals: Vitals: Vital Signs Date Time Temp Pulse Resp B/P (MAP) Pulse Ox O2 Delivery O2 Flow Rate FiO2 01/01/19 08:45 98.3 103 18 160/71 98.3 01/01/19 07:40 98 Nasal Cannula 4.0 Labs: Labs: Laboratory Tests Test 01/01/19 00:44 01/01/19 00:54 2/1/19 01:20 01/01/19 01:51 White Blood Count 12.9 x10^3/uL (4.0-11.0) Red Blood Count 3.31 x10^6/uL (4.30-5.70) Hemoglobin 6.6 g/dL (13.0-17.5) Hematocrit 22.5 % (39.0-53.0) Mean Corpuscular Volume 68 fL (79-100) Mean Corpuscular Hemoglobin 20 pg (25-35) Mean Corpuscular Hemoglobin Concent 30 g/dL (31-37) Red Cell Distribution Width 18.4 % (11.5-14.5) Platelet Count 684 x10^3/uL (140-400) Neutrophils (%) (Auto) 87 % (31-73) Lymphocytes (%) (Auto) 5 % (24-48) Monocytes (%) (Auto) 6 % (0-9) Eosinophils (%) (Auto) 0 % (0-3) Basophils (%) (Auto) 2 % (0-3) Neutrophils # (Auto) 11.2 x10^3uL (1.8-7.7) Lymphocytes # (Auto) 0.6 x10^3/uL (1.0-4.8) Monocytes # (Auto) 0.8 x10^3/uL (0.0-1.1) Eosinophils # (Auto) 0.0 x10^3/uL (0.0-0.7) Basophils # (Auto) 0.2 x10^3/uL (0.0-0.2) Segmented Neutrophils % 85 % (35-66) Lymphocytes % 5 % (24-48) Monocytes % 10 % (0-10) Platelet Estimate Increased (ADEQUATE) Polychromasia Slight Hypochromasia Marked Anisocytosis Slight Microcytosis Mod Reticulocyte Count (auto) 2.6 % (0.5-2.5) Prothrombin Time 14.0 SEC (11.7-14.0) Prothromb Time International Ratio 1.1 (0.8-1.1) D-Dimer (Alyssa) 3.96 ug/mlFEU (0.00-0.50) Sodium Level 136 mmol/L (136-145) Potassium Level 4.7 mmol/L (3.5-5.1) Chloride Level 101 mmol/L (98-107) Carbon Dioxide Level 24 mmol/L (21-32) Anion Gap 11 (6-14) Blood Urea Nitrogen 21 mg/dL (8-26) Creatinine 1.2 mg/dL (0.7-1.3) Estimated GFR (Cockcroft-Gault) 61.0 BUN/Creatinine Ratio 18 (6-20) Glucose Level 166 mg/dL (70-99) Calcium Level 9.2 mg/dL (8.5-10.1) Magnesium Level 1.9 mg/dL (1.8-2.4) Iron Level 12 ug/dL (65-175) Total Iron Binding Capacity 262 ug/dL (250-450) Iron Saturation 5 % (15-34) Total Bilirubin 0.6 mg/dL (0.2-1.0) Aspartate Amino Transf (AST/SGOT) 23 U/L (15-37) Alanine Aminotransferase (ALT/SGPT) 20 U/L (16-63) Alkaline Phosphatase 96 U/L (46-116) Troponin I Quantitative < 0.017 ng/mL (0.000-0.055) OW-Gtp-U-Type Natriuretic Peptide 1561 pg/mL (0-124) Total Protein 7.4 g/dL (6.4-8.2) Albumin 2.5 g/dL (3.4-5.0) Albumin/Globulin Ratio 0.5 (1.0-1.7) Thyroid Stimulating Hormone (TSH) 1.020 uIU/mL (0.358-3.74) Bedside Troponin I 0.03 ng/ml (<0.08) Urine Collection Type Unknown Urine Color Yellow Urine Clarity Clear Urine pH 5.5 Urine Specific [place] 1.020 Urine Protein 100 mg/dL (NEG-TRACE) Urine Glucose (UA) Negative mg/dL (NEG) Urine Ketones (Stick) Negative mg/dL (NEG) Urine Blood Trace (NEG) Urine Nitrite Negative (NEG) Urine Bilirubin Negative (NEG) Urine Urobilinogen Dipstick 0.2 mg/dL (0.2 mg/dL) Urine Leukocyte Esterase Negative (NEG) Urine RBC 0 /HPF (0-2) Urine WBC Occ /HPF (0-4) Urine Squamous Epithelial Cells Occ /LPF Urine Amorphous Sediment Present /HPF Urine Bacteria 0 /HPF (0-FEW) Urine Hyaline Casts Occasional /HPF Urine Mucus Mod /LPF Stool Occult Blood Positive (NEG) Influenza Type A Antigen Negative (NEGATIVE) Influenza Type B Antigen Negative (NEGATIVE) Allergies: Coded Allergies: No Known Drug Allergies (Unverified , 10/21/18) Medications: Current Medications Medications (Trade) Dose Ordered Sig/Tala Route PRN Reason Start Time Stop Time Status Last Admin Dose Admin Aspirin (Children'S Aspirin) 324 mg 1X ONCE PO 01/01/19 01:00 01/01/19 01:01 DC 01/01/19 01:00 Iohexol (Omnipaque 350 Mg/ml) 75 ml 1X ONCE IV 01/01/19 03:00 01/01/19 03:01 DC 01/01/19 02:46 Levofloxacin/ Dextrose 150 ml @ 100 mls/hr 1X ONCE IV 01/01/19 04:00 01/01/19 05:29 DC 01/01/19 04:31 Albuterol/ Ipratropium (Duoneb) 3 ml RTQID NEB 01/01/19 08:00 01/02/19 07:59 01/01/19 07:32 Imaging: Imaging: CXR IMPRESSION: Extensive multilobar right pulmonary infiltrates could represent multilobar pneumonia or asymmetric pulmonary edema. Chest CTA IMPRESSION: 1. No pulmonary artery emboli. 2. Extensive pulmonary opacities throughout the right lung. This is likely multilobar pneumonia. Asymmetric pulmonary edema or pneumonitis are less likely considerations. Follow-up CT imaging in 3-6 months is advised to document this resolves to exclude the unlikely possibility of nonmasslike lung adenocarcinoma for these findings. PE: GEN: NAD HEENT: Atraumatic, PERRL LUNGS: some diminished, on NC HEART: tachycardic ABD: NABS, S/ND/NT EXTREMITY: trace BLE edema SKIN: No rashes, no jaundice NEURO/PSYCH: A & O �3 A/P: A/P: SOA/productive cough (?h/o hemoptysis), chest pressure, abnormal chest imaging/ pneumonia Fever, leukocytosis, elevated BNP MARIA DEL CARMEN - Hgb worse than baseline, fecal occult positive, no obvious GI bleeding GERD - on PPI, reflux on EGD 10/2018 CRC screen - UTD (10/2018) Diverticular disease - perf requiring drain in 2018 Hemorrhoids CAD on ASA Arthritis/chronic knee pain on NSAIDs -- Okay for PO per GI. Agree w/ PPI, add iron. Transfusion planned. ?cardiology consult PRASANTH LAGOS Jan 01, 2019 09:04
[2019-01-01] MEDS: PIPERACILLIN/TAZOBACTAM 3.375 GM in IV NORMAL SALINE 50ML 50 ML IV SCH ×3 (10:02→17:13)
[2019-01-01] MEDS: DOXYCYCLINE HYCLATE 100 MG in IV DEXTROSE 5% 100ML 100 ML IV SCH ×2 (10:03→20:39)
[2019-01-01] MEDS: LISINOPRIL 20 MG TABLET PO SCH (10:05)
[2019-01-01] MEDS: METOPROLOL TART IMMED RELEASE 25 MG TABLET. PO SCH (10:05)
--- NOTE | 2019-01-01 10:14 | PDOC1 ---
History and Physical Date of Admission Date of Admission DATE: 01/01/19 TIME: 10:07 Identification/Chief Complaint Chief Complaint Chest pains Source Source: Caregiver, Chart review, Patient History of Present Illness History of Present Illness 53-year-old male who actually came in for chest pains maybe for 1-2 days and was found to have multilobar pneumonia hence ID is now on board and treating that. I thought initially that his chest pain was pleuritic but he claims that his chest pain associated with SOA happen also when he would run his wheelchair very fast/IE upon exertion. ASSOCIATED with SOA He does have history of CAD with stents in 2003 and CABG 2011 both done [place]. He denies smoking or heavy alcohol use. He is tachycardic from the sepsis/multilobar pneumonia. Also another issue is his hemoglobin is 6.6 and getting blood transfusion with Hemoccult positive in the stool. Denies melena or hematochezia but he fails to check on his stool he admits.HE just had a colonoscopy a year ago after an episode of diverticulitis. As far as he can recall he has never been on iron supplements or never had transfusion before GI also likewise on board ON ROS also complains of bilateral knee pain. Physical exam very remarkable for limited straightening, he is wheelchair-bound at a young age because of severe OA He claims to me that he was supposed to follow-up at [facility] but never did Past Medical History Cardiovascular: CAD, HTN Endocrine: Diabetes Past Surgical History Past Surgical History: CABG Family History Family History: No Significant Social History Smoke: No ALCOHOL: none Drugs: None Current Problem List Problem List Problems Medical Problems: (1) GI bleed Status: Acute Current Medications Current Medications Current Medications Aspirin (Children'S Aspirin) 324 mg 1X ONCE PO Last administered on 01/01/19at 01:00; Start 01/01/19 at 01:00; Stop 01/01/19 at 01:01; Status DC Iohexol (Omnipaque 350 Mg/ml) 75 ml 1X ONCE IV Last administered on 01/01/19at 02:46; Start 01/01/19 at 03:00; Stop 01/01/19 at 03:01; Status DC Info (CONTRAST GIVEN -- Rx MONITORING) 1 each PRN DAILY PRN MC SEE COMMENTS; Start 01/01/19 at 02:45; Stop 01/03/19 at 02:44 Levofloxacin/ Dextrose 150 ml @ 100 mls/hr 1X ONCE IV Last administered on 01/01/19at 04:31; Start 01/01/19 at 04:00; Stop 01/01/19 at 05:29; Status DC Ondansetron HCl (Zofran) 4 mg PRN Q8HRS PRN IV NAUSEA/VOMITING 1ST CHOICE; Start 01/01/19 at 04:30; Stop 01/01/19 at 08:54; Status DC Acetaminophen (Tylenol) 650 mg PRN Q4HRS PRN PO FEVER; Start 01/01/19 at 04:30; Stop 01/02/19 at 04:29 Albuterol/ Ipratropium (Duoneb) 3 ml RTQID NEB Last administered on 01/01/19at 07 :32; Start 01/01/19 at 08:00; Stop 01/02/19 at 07:59 Pantoprazole Sodium (PROTONIX VIAL for IV PUSH) 80 mg 1X ONCE IVP ; Start at 05:00; Stop 01/01/19 at 05:01; Status DC Acetaminophen (Tylenol) 650 mg 1X PRN PRN PO PRE-TRANSFUSION; Start 01/01/19 at 04:45 Diphenhydramine HCl (Benadryl Oral Elixir) 12.5 mg 1X PRN PRN PO PRE- TRANSFUSION; Start 01/01/19 at 04:45 Linezolid/Dextrose 300 ml @ 300 mls/hr Q12HR IV Last administered on 01/01/19at 10:04; Start 01/01/19 at 09:00 Piperacillin Sod/ Tazobactam Sod 3.375 gm/Sodium Chloride 50 ml @ 100 mls/hr Q6HRS IV Last administered on 01/01/19at 10:02; Start 01/01/19 at 07:45 Doxycycline Hyclate 100 mg/ Dextrose 100 ml @ 50 mls/hr Q12HR IV Last administered on 01/01/19at 10:03; Start 01/01/19 at 09:00 Influenza Virus Vaccine (Afluria Trivalent 1613-1733 Syringe) 0.5 ml ONCE ONCE VAX IM ; Start 01/01/19 at 09:00; Stop 01/01/19 at 09:03; Status DC Ondansetron HCl (Zofran) 4 mg PRN Q6HRS PRN IV NAUSEA/VOMITING 1ST CHOICE; Start 01/01/19 at 09:00 Ketorolac Tromethamine (Toradol 15mg Vial) 15 mg 1X ONCE IM Last administered on 01/01/19at 10:01; Start 01/01/19 at 09:00; Stop 01/01/19 at 09:03; Status DC Oxycodone/ Acetaminophen (Percocet 5/325) 1 tab PRN Q4HRS PRN PO SEVERE PAIN; Start 01/01/19 at 09:00 Morphine Sulfate (Morphine Sulfate) 2 mg PRN Q2HR PRN IV MODERATE TO SEVERE PAIN; Start 01/01/19 at 09:00 Pantoprazole Sodium (Protonix) 40 mg DAILYAC PO ; Start 01/01/19 at 11:30 Al Hydroxide/Mg Hydroxide (Mylanta Plus Xs) 30 ml PRN Q2HR PRN PO HEARTBURN / GAS; Start 01/01/19 at 09:00 Diphenhydramine HCl (Benadryl) 25 mg PRN QHS PRN PO INSOMNIA; Start 01/01/19 at 09:00 Nicotine (Nicoderm Cq 21mg) 1 patch PRN DAILY PRN TD SMOKING CESSATION; Start 01/01/19 at 09:00 Acetaminophen (Tylenol) 975 mg PRN Q8HRS PRN PO MILD PAIN; Start 01/01/19 at 09: 00 Atorvastatin Calcium (Lipitor) 40 mg QHS PO ; Start 01/01/19 at 21:00 Lisinopril (Prinivil) 40 mg DAILY PO Last administered on 01/01/19at 10:05; Start 01/01/19 at 09:00 Metoprolol Tartrate (Lopressor) 25 mg DAILY PO Last administered on 01/01/19at 10 :05; Start 01/01/19 at 09:00 Metformin HCl (Glucophage) 1,000 mg BIDWMEALS PO ; Start 01/01/19 at 17:00 Pioglitazone HCl (Actos) 15 mg DAILY PO ; Start 01/01/19 at 09:00 Insulin Human Lispro (HumaLOG) 0-9 UNITS TIDWMEALS SQ ; Start 01/01/19 at 12:00 Dextrose (Dextrose 50%-Water Syringe) 12.5 gm PRN Q15MIN PRN IV SEE COMMENTS; Start 01/01/19 at 09:00 Ferrous Sulfate (Iron Oral Solution) 300 mg BIDWMEALS PO ; Start 01/01/19 at 17: 00; Status UNV Polyethylene Glycol (miraLAX PACKET) 17 gm PRN DAILY PRN PO CONSTIPATION; Start 01/01/19 at 10:15; Status UNV Active Scripts Active Reported Hydrocortisone 453.6 Gm Oint...g. TP BID Actos (Pioglitazone Hcl) 15 Mg Tablet 1 Tab PO DAILY Lisinopril 40 Mg Tablet 1 Tab PO DAILY Tylenol (Acetaminophen) 325 Mg Tablet 3 Tab PO PRN Q8HRS PRN Protonix (Pantoprazole Sodium) 20 Mg Tablet.dr 40 Mg PO DAILY Metformin Hcl 1,000 Mg Tablet 1,000 Mg PO BIDWMEALS Atorvastatin Calcium 40 Mg Tablet 1 Tab PO DAILY Metoprolol Tartrate 25 Mg Tablet 1 Tab PO DAILY Aspirin 325 Mg Tablet 1 Tab PO DAILY Allergies Allergies: Coded Allergies: No Known Drug Allergies (Unverified , 10/21/18) ROS Review of System Asper history of present illness, the rest of ROS 14 point negative, no fevers Physical Exam General: Alert, Oriented X3, Cooperative, No acute distress, Other (pale skin) HEENT: Atraumatic, PERRLA, EOMI, Other (pale palpebral conjunctivae) Lungs: Normal air movement, Other (symmetrical chest expansion with decreased Sounds, no wheezing, no crackles) Heart: S1S2, RRR, no thrills, no rubs Abdomen: Normal bowel sounds, Soft, No tenderness, No hepatosplenomegaly, No masses Male Genitals Exam: normal genitalia, normal prostate Rectal Exam: not examined PELVIC: Nml ext genitalia Extremities: No clubbing, No cyanosis, No edema, Normal pulses, No tenderness/ swelling Skin: No rashes, No breakdown, No significant lesion Neuro: Normal gait, Normal speech, Strength at 5/5 X4 ext, Normal tone, Sensation intact, Cranial nerves 3-12 NL, Reflexes 2+ Psych/Mental Status: Mental status NL, Mood NL Vitals Vitals Vital Signs Date Time Temp Pulse Resp B/P (MAP) Pulse Ox O2 Delivery O2 Flow Rate FiO2 01/01/19 10:05 106 165/75 01/01/19 09:08 98.3 18 98.3 01/01/19 07:40 98 Nasal Cannula 4.0 Labs Labs Laboratory Tests Test 01/01/19 00:44 01/01/19 00:54 01/01/19 01:20 01/01/19 01:51 White Blood Count 12.9 x10^3/uL (4.0-11.0) Red Blood Count 3.31 x10^6/uL (4.30-5.70) Hemoglobin 6.6 g/dL (13.0-17.5) Hematocrit 22.5 % (39.0-53.0) Mean Corpuscular Volume 68 fL (79-100) Mean Corpuscular Hemoglobin 20 pg (25-35) Mean Corpuscular Hemoglobin Concent 30 g/dL (31-37) Red Cell Distribution Width 18.4 % (11.5-14.5) Platelet Count 684 x10^3/uL (140-400) Neutrophils (%) (Auto) 87 % (31-73) Lymphocytes (%) (Auto) 5 % (24-48) Monocytes (%) (Auto) 6 % (0-9) Eosinophils (%) (Auto) 0 % (0-3) Basophils (%) (Auto) 2 % (0-3) Neutrophils # (Auto) 11.2 x10^3uL (1.8-7.7) Lymphocytes # (Auto) 0.6 x10^3/uL (1.0-4.8) Monocytes # (Auto) 0.8 x10^3/uL (0.0-1.1) Eosinophils # (Auto) 0.0 x10^3/uL (0.0-0.7) Basophils # (Auto) 0.2 x10^3/uL (0.0-0.2) Segmented Neutrophils % 85 % (35-66) Lymphocytes % 5 % (24-48) Monocytes % 10 % (0-10) Platelet Estimate Increased (ADEQUATE) Polychromasia Slight Hypochromasia Marked Anisocytosis Slight Microcytosis Mod Reticulocyte Count (auto) 2.6 % (0.5-2.5) Prothrombin Time 14.0 SEC (11.7-14.0) Prothromb Time International Ratio 1.1 (0.8-1.1) D-Dimer (Alyssa) 3.96 ug/mlFEU (0.00-0.50) Sodium Level 136 mmol/L (136-145) Potassium Level 4.7 mmol/L (3.5-5.1) Chloride Level 101 mmol/L (98-107) Carbon Dioxide Level 24 mmol/L (21-32) Anion Gap 11 (6-14) Blood Urea Nitrogen 21 mg/dL (8-26) Creatinine 1.2 mg/dL (0.7-1.3) Estimated GFR (Cockcroft-Gault) 61.0 BUN/Creatinine Ratio 18 (6-20) Glucose Level 166 mg/dL (70-99) Calcium Level 9.2 mg/dL (8.5-10.1) Magnesium Level 1.9 mg/dL (1.8-2.4) Iron Level 12 ug/dL (65-175) Total Iron Binding Capacity 262 ug/dL (250-450) Iron Saturation 5 % (15-34) Total Bilirubin 0.6 mg/dL (0.2-1.0) Aspartate Amino Transf (AST/SGOT) 23 U/L (15-37) Alanine Aminotransferase (ALT/SGPT) 20 U/L (16-63) Alkaline Phosphatase 96 U/L (46-116) Troponin I Quantitative < 0.017 ng/mL (0.000-0.055) JY-Flo-Y-Type Natriuretic Peptide 1561 pg/mL (0-124) Total Protein 7.4 g/dL (6.4-8.2) Albumin 2.5 g/dL (3.4-5.0) Albumin/Globulin Ratio 0.5 (1.0-1.7) Thyroid Stimulating Hormone (TSH) 1.020 uIU/mL (0.358-3.74) Bedside Troponin I 0.03 ng/ml (<0.08) Urine Collection Type Unknown Urine Color Yellow Urine Clarity Clear Urine pH 5.5 Urine Specific [place] 1.020 Urine Protein 100 mg/dL (NEG-TRACE) Urine Glucose (UA) Negative mg/dL (NEG) Urine Ketones (Stick) Negative mg/dL (NEG) Urine Blood Trace (NEG) Urine Nitrite Negative (NEG) Urine Bilirubin Negative (NEG) Urine Urobilinogen Dipstick 0.2 mg/dL (0.2 mg/dL) Urine Leukocyte Esterase Negative (NEG) Urine RBC 0 /HPF (0-2) Urine WBC Occ /HPF (0-4) Urine Squamous Epithelial Cells Occ /LPF Urine Amorphous Sediment Present /HPF Urine Bacteria 0 /HPF (0-FEW) Urine Hyaline Casts Occasional /HPF Urine Mucus Mod /LPF Stool Occult Blood Positive (NEG) Influenza Type A Antigen Negative (NEGATIVE) Influenza Type B Antigen Negative (NEGATIVE) Laboratory Tests Test 01/01/19 00:44 01/01/19 00:54 01/01/19 01:20 01/01/19 01:51 White Blood Count 12.9 x10^3/uL (4.0-11.0) Red Blood Count 3.31 x10^6/uL (4.30-5.70) Hemoglobin 6.6 g/dL (13.0-17.5) Hematocrit 22.5 % (39.0-53.0) Mean Corpuscular Volume 68 fL (79-100) Mean Corpuscular Hemoglobin 20 pg (25-35) Mean Corpuscular Hemoglobin Concent 30 g/dL (31-37) Red Cell Distribution Width 18.4 % (11.5-14.5) Platelet Count 684 x10^3/uL (140-400) Neutrophils (%) (Auto) 87 % (31-73) Lymphocytes (%) (Auto) 5 % (24-48) Monocytes (%) (Auto) 6 % (0-9) Eosinophils (%) (Auto) 0 % (0-3) Basophils (%) (Auto) 2 % (0-3) Neutrophils # (Auto) 11.2 x10^3uL (1.8-7.7) Lymphocytes # (Auto) 0.6 x10^3/uL (1.0-4.8) Monocytes # (Auto) 0.8 x10^3/uL (0.0-1.1) Eosinophils # (Auto) 0.0 x10^3/uL (0.0-0.7) Basophils # (Auto) 0.2 x10^3/uL (0.0-0.2) Segmented Neutrophils % 85 % (35-66) Lymphocytes % 5 % (24-48) Monocytes % 10 % (0-10) Platelet Estimate Increased (ADEQUATE) Polychromasia Slight Hypochromasia Marked Anisocytosis Slight Microcytosis Mod Reticulocyte Count (auto) 2.6 % (0.5-2.5) Prothrombin Time 14.0 SEC (11.7-14.0) Prothromb Time International Ratio 1.1 (0.8-1.1) D-Dimer (Alyssa) 3.96 ug/mlFEU (0.00-0.50) Sodium Level 136 mmol/L (136-145) Potassium Level 4.7 mmol/L (3.5-5.1) Chloride Level 101 mmol/L (98-107) Carbon Dioxide Level 24 mmol/L (21-32) Anion Gap 11 (6-14) Blood Urea Nitrogen 21 mg/dL (8-26) Creatinine 1.2 mg/dL (0.7-1.3) Estimated GFR (Cockcroft-Gault) 61.0 BUN/Creatinine Ratio 18 (6-20) Glucose Level 166 mg/dL (70-99) Calcium Level 9.2 mg/dL (8.5-10.1) Magnesium Level 1.9 mg/dL (1.8-2.4) Iron Level 12 ug/dL (65-175) Total Iron Binding Capacity 262 ug/dL (250-450) Iron Saturation 5 % (15-34) Total Bilirubin 0.6 mg/dL (0.2-1.0) Aspartate Amino Transf (AST/SGOT) 23 U/L (15-37) Alanine Aminotransferase (ALT/SGPT) 20 U/L (16-63) Alkaline Phosphatase 96 U/L (46-116) Troponin I Quantitative < 0.017 ng/mL (0.000-0.055) SB-Izq-I-Type Natriuretic Peptide 1561 pg/mL (0-124) Total Protein 7.4 g/dL (6.4-8.2) Albumin 2.5 g/dL (3.4-5.0) Albumin/Globulin Ratio 0.5 (1.0-1.7) Thyroid Stimulating Hormone (TSH) 1.020 uIU/mL (0.358-3.74) Bedside Troponin I 0.03 ng/ml (<0.08) Urine Collection Type Unknown Urine Color Yellow Urine Clarity Clear Urine pH 5.5 Urine Specific [place] 1.020 Urine Protein 100 mg/dL (NEG-TRACE) Urine Glucose (UA) Negative mg/dL (NEG) Urine Ketones (Stick) Negative mg/dL (NEG) Urine Blood Trace (NEG) Urine Nitrite Negative (NEG) Urine Bilirubin Negative (NEG) Urine Urobilinogen Dipstick 0.2 mg/dL (0.2 mg/dL) Urine Leukocyte Esterase Negative (NEG) Urine RBC 0 /HPF (0-2) Urine WBC Occ /HPF (0-4) Urine Squamous Epithelial Cells Occ /LPF Urine Amorphous Sediment Present /HPF Urine Bacteria 0 /HPF (0-FEW) Urine Hyaline Casts Occasional /HPF Urine Mucus Mod /LPF Stool Occult Blood Positive (NEG) Influenza Type A Antigen Negative (NEGATIVE) Influenza Type B Antigen Negative (NEGATIVE) VTE Prophylaxis Ordered VTE Prophylaxis Devices: Contraindicated VTE Pharmacological Prophylaxi: Contraindicated Assessment/Plan Assessment/Plan Multi lobar pneumonia in an nonsmoker-in and in immunocompetent patient Sepsis secondary to above, no organ dysfunction Hemoccult-positive Acute precipitous drop of hemoglobin Reactive thrombocytosis Leukocytosis in the background of sepsis Diabetes type 2-controlled Chest pain, nonpleuritic-history of CAD and CABG Bilateral knee [id number] even straighten-he claims he was supposed to follow up with [facility] but never did Plan: Antibiotics per ID 2 midnight admit I did consult cardiology given the nonpleuritic nature of chest pain and history of CAD and CABG. Chest pain is exertional accompanied with S OA Transfuse blood for hemoglobin 6.6 recheck tomorrow. Transfuse if less than 7 GI workup/Hemoccult-positive per GI Monitor the thrombocytosis and leukocytosis-should get better with treatment Home meds have reconciled Nothing by mouth as per GI-unsure if any further procedures planned for today SSI Bilateral knee [id number] at old chart he was supposed to be seen by Dr. Lynn I did consult a specialist MINNIE Davis RN, MD Jan 01, 2019 10:14
[2019-01-01] MEDS ORDERED: POLYETHYLENE GLYCOL 3350 17 GM PACKET. PO PRN (10:15)
--- NOTE | 2019-01-01 10:22 | CONS ---
DATE OF CONSULTATION: 01/01/2019 ROOM: 211. REQUESTING PHYSICIAN: Dr. Crawford. REASON FOR CONSULTATION: Pneumonia. HISTORY OF PRESENT ILLNESS: The patient is a 63-year-old gentleman with a history of known diabetes and previous diverticulitis with perforation. Additionally, he has a history of coronary artery disease. He states over the last couple of days, he has become more short of air and has some chest discomfort mainly with exertion, has some nausea x 1, but no vomiting. Also had some subjective fevers and some chills, but no gross sweats. He has no sinus issues, no sore throat. No cough. No diarrhea, no discolored stools or blood in the stools. No dysuria, frequency, urgency. No rashes, no falls or trauma. He does have chronic joint aches. Because of his chest discomfort, he was brought to [facility] Emergency Room this morning had a white count of 12.9 with a hemoglobin of 6.6. He underwent a chest x-ray, which showed extensive multilobular right pulmonary infiltrates. He then underwent a CTA, which was negative for pulmonary emboli, but he did have extensive pulmonary opacities throughout the right lung, likely multilobar pneumonia. He was given a dose of levofloxacin and admitted to the floor. Currently, he is lying in bed and he is fairly comfortable. PAST MEDICAL HISTORY: Positive for the diverticulitis with small bowel thickening and perforation, history of coronary artery disease, hypertension, hyperlipidemia, diabetes, osteoarthritis. PAST SURGICAL HISTORY: Positive for coronary artery bypass grafting, history of interventional radiology drainage of a fluid collection. REVIEW OF SYSTEMS: Otherwise negative. ALLERGIES: No known drug allergies. SOCIAL HISTORY: He is an inment. He quit smoking, no alcohol, no illicit drug use. FAMILY HISTORY: Noncontributory. CURRENT MEDICATIONS: He received the dose of levofloxacin x 1, also aspirin x 1, Tylenol, albuterol, Atrovent and pantoprazole. PHYSICAL EXAMINATION: VITAL SIGNS: Temperature is 99.1, pulse 126, respirations 18, he is on 5 liters nasal cannula, satting 95%, blood pressure 166/82. Did have a temperature of 100.1 on arrival. CONSTITUTIONAL: He is lying in bed, is cooperative. He is in no acute distress. He looks fairly comfortable on oxygen. HEENT: Pupils equal and reactive. Normal conjunctivae. Oral cavity, pharynx was clear. NECK: Supple with good range of motion. LUNGS: Decreased in the bases, no wheeze. Trace rhonchi. HEART: S1, S2. ABDOMEN: Soft, nontender, nondistended, no guarding, no rebound. EXTREMITIES: No clubbing, cyanosis or gross edema. SKIN: Warm to touch without generalized signs of rash. NEUROLOGIC: He is alert and oriented. He is nonfocal. PSYCHIATRIC: Affect is appropriate. LABORATORY DATA: On arrival, white count 12.9, hemoglobin of 6.6, platelets of 684 with 87 segs, 5 lymphs. Glucose of 166, creatinine of 1.2 with normal liver function study tests. Troponin was 0.013, albumin of 2.5. Urinalysis not consistent with urinary tract infection. Stool occult was positive. Influenza screen was negative. RADIOLOGY: Reviewed in history of present illness. IMPRESSION: 1. Fever. 2. Leukocytosis. 3. Community-acquired pneumonia. 4. Anemia. 5. Questionable gastrointestinal bleed with history of diverticulitis, and occult positive. 6. Diabetes. RECOMMENDATIONS: We will add Zyvox, Zosyn, doxycycline, all given IV given questionable GI bleed for now. We will add strep legionella antigens, discontinue further levofloxacin, consult GI. He may need additional imaging or scope. Follow up labs and cultures. Relieve chest discomfort per primary. This was discussed with nursing. Thank you for allowing me to participate in the patient's care. Should have any questions, please do not hesitate to contact me. JOSEPH EDWARDS MD DR: JULY/marilin JOB#: [id number] / [id number]
--- NOTE | 2019-01-01 11:38 | RAD ---
EXAM: AP and lateral views of both knees DATE: 01/01/2019 10:02 AM INDICATION: KNEE PAIN FOR 3 YEARS COMPARISON: 11/09/2018 FINDINGS: Right knee: Right knee joint osteoarthritis is seen with moderate medial compartment joint space narrowing and small associated osteophytes. Decreased bone mineral density. No evidence for acute fracture or dislocation. Small right knee joint effusion. Patellar enthesopathy. Left knee: Medial and lateral compartment joint space narrowing degree limited evaluation given mild knee flexion. Small tricompartmental osteophytes are seen. Decreased bone mineral density. No evidence of acute fracture or dislocation. Small left knee joint effusion. Patellar enthesopathy. Surgical clips are seen along the medial aspect of the left knee IMPRESSION: 1. Bilateral knee joint osteoarthritis 2. Bilateral knee joint effusions 3. Decreased bone mineral density. No evidence for fracture. Electronically signed by: Jonathan Lundberg MD (01/01/2019 11:34 AM) [facility]
[2019-01-01] MEDS: INSULIN LISPRO 300 UNITS/3 ML INSULN.PEN. SQ SCH ×2 (12:00→17:00)
--- NOTE | 2019-01-01 12:04 | PDOC2 ---
CARDIAC CONSULT DATE OF CONSULT Date of Consult DATE: 01/01/19 TIME: 11:35 REASON FOR CONSULT Reason for Consult: CP, SOA exertion REFERRING PHYSICIAN Referring Physician: Audie SOURCE Source: Chart review, Patient HISTORY OF PRESENT ILLNESS HISTORY OF PRESENT ILLNESS This is a pleasant 63 yo male admitted for complains of chest pain and SOA. This has been going on in the last 2 days. This is more when he transfers or move around. He describes it as chest pressure right mostly nonradidating. Denies any abd pain and no productive cough but has been having chills lately. 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 Upon admission he has been noted with anemia and pneumonia. No vomiting or palpitations and no episodes of dizziness. He takes his cardiac meds regularly. He resides at [facility]. Presently he is not in any discomfort, appetite is good and no distress. PAST MEDICAL HISTORY Cardiovascular: CAD, HTN, Hyperlipidemia Pulmonary: Pneumonia GI: Diverticulosis, GERD, Hemorrhoids Musculoskeletal: Osteoarthritis Renal/: Chronic renal failure Endocrine: Diabetes (2) PAST SURGICAL HISTORY Past Surgical History: CABG, Other (left elbow surgery) FAMILY HISTORY Family History: Adopted SOCIAL HISTORY Smoke: No ALCOHOL: none Drugs: None Lives: Alone CURRENT MEDICATIONS CURRENT MEDICATIONS Current Medications Medications (Trade) Dose Ordered Sig/Tala Route PRN Reason Start Time Stop Time Status Last Admin Dose Admin Aspirin (Children'S Aspirin) 324 mg 1X ONCE PO 01/01/19 01:00 01/01/19 01:01 DC 01/01/19 01:00 Iohexol (Omnipaque 350 Mg/ml) 75 ml 1X ONCE IV 01/01/19 03:00 01/01/19 03:01 DC 01/01/19 02:46 Levofloxacin/ Dextrose 150 ml @ 100 mls/hr 1X ONCE IV 01/01/19 04:00 01/01/19 05:29 DC 01/01/19 04:31 Albuterol/ Ipratropium (Duoneb) 3 ml RTQID NEB 01/01/19 08:00 01/02/19 07:59 01/01/19 11:12 Linezolid/Dextrose 300 ml @ 300 mls/hr Q12HR IV 01/01/19 09:00 01/01/19 10:04 Piperacillin Sod/ Tazobactam Sod 3.375 gm/Sodium Chloride 50 ml @ 100 mls/hr Q6HRS IV 01/01/19 07:45 01/01/19 10:02 Doxycycline Hyclate 100 mg/ Dextrose 100 ml @ 50 mls/hr Q12HR IV 01/01/19 09:00 01/01/19 10:03 Ketorolac Tromethamine (Toradol 15mg Vial) 15 mg 1X ONCE IM 01/01/19 09:00 01/01/19 09:03 DC 01/01/19 10:01 Lisinopril (Prinivil) 40 mg DAILY PO 01/01/19 09:00 01/01/19 10:05 Metoprolol Tartrate (Lopressor) 25 mg DAILY PO 01/01/19 09:00 01/01/19 10:05 ALLERGIES ALLERGIES: Coded Allergies: No Known Drug Allergies (Unverified , 10/21/18) ROS Review of System 14 point ROS evaluated with pertinent positives noted per HPI PHYSICAL EXAM General: Alert, Oriented X3, Cooperative HEENT: Atraumatic, Mucous membr. moist/pink Lungs: Other (diffuse crackles) Heart: Regular rate (SR), Normal S1, Normal S2, Other (2/6 systolic murmur to LLS border) Abdomen: Soft, No tenderness Extremities: No cyanosis, Other (trace LE edema) Skin: No breakdown, No significant lesion, Other (pale) Neuro: Normal speech, Sensation intact Psych/Mental Status: Mood NL MUSCULOSKELETAL: Osteoarthritic changes both hands VITALS VITALS Vital Signs Date Time Temp Pulse Resp B/P (MAP) Pulse Ox O2 Delivery O2 Flow Rate FiO2 01/01/19 11:35 Nasal Cannula 4.0 01/01/19 11:35 98.3 82 18 143/73 (96) 98 98.3 LABS Lab: Laboratory Tests Test 01/01/19 00:44 01/01/19 00:54 01/01/19 01:20 01/01/19 01:51 White Blood Count 12.9 x10^3/uL (4.0-11.0) Red Blood Count 3.31 x10^6/uL (4.30-5.70) Hemoglobin 6.6 g/dL (13.0-17.5) Hematocrit 22.5 % (39.0-53.0) Mean Corpuscular Volume 68 fL (79-100) Mean Corpuscular Hemoglobin 20 pg (25-35) Mean Corpuscular Hemoglobin Concent 30 g/dL (31-37) Red Cell Distribution Width 18.4 % (11.5-14.5) Platelet Count 684 x10^3/uL (140-400) Neutrophils (%) (Auto) 87 % (31-73) Lymphocytes (%) (Auto) 5 % (24-48) Monocytes (%) (Auto) 6 % (0-9) Eosinophils (%) (Auto) 0 % (0-3) Basophils (%) (Auto) 2 % (0-3) Neutrophils # (Auto) 11.2 x10^3uL (1.8-7.7) Lymphocytes # (Auto) 0.6 x10^3/uL (1.0-4.8) Monocytes # (Auto) 0.8 x10^3/uL (0.0-1.1) Eosinophils # (Auto) 0.0 x10^3/uL (0.0-0.7) Basophils # (Auto) 0.2 x10^3/uL (0.0-0.2) Segmented Neutrophils % 85 % (35-66) Lymphocytes % 5 % (24-48) Monocytes % 10 % (0-10) Platelet Estimate Increased (ADEQUATE) Polychromasia Slight Hypochromasia Marked Anisocytosis Slight Microcytosis Mod Reticulocyte Count (auto) 2.6 % (0.5-2.5) Prothrombin Time 14.0 SEC (11.7-14.0) Prothromb Time International Ratio 1.1 (0.8-1.1) D-Dimer (Alyssa) 3.96 ug/mlFEU (0.00-0.50) Sodium Level 136 mmol/L (136-145) Potassium Level 4.7 mmol/L (3.5-5.1) Chloride Level 101 mmol/L (98-107) Carbon Dioxide Level 24 mmol/L (21-32) Anion Gap 11 (6-14) Blood Urea Nitrogen 21 mg/dL (8-26) Creatinine 1.2 mg/dL (0.7-1.3) Estimated GFR (Cockcroft-Gault) 61.0 BUN/Creatinine Ratio 18 (6-20) Glucose Level 166 mg/dL (70-99) Calcium Level 9.2 mg/dL (8.5-10.1) Magnesium Level 1.9 mg/dL (1.8-2.4) Iron Level 12 ug/dL (65-175) Total Iron Binding Capacity 262 ug/dL (250-450) Iron Saturation 5 % (15-34) Total Bilirubin 0.6 mg/dL (0.2-1.0) Aspartate Amino Transf (AST/SGOT) 23 U/L (15-37) Alanine Aminotransferase (ALT/SGPT) 20 U/L (16-63) Alkaline Phosphatase 96 U/L (46-116) Troponin I Quantitative < 0.017 ng/mL (0.000-0.055) XU-Fty-W-Type Natriuretic Peptide 1561 pg/mL (0-124) Total Protein 7.4 g/dL (6.4-8.2) Albumin 2.5 g/dL (3.4-5.0) Albumin/Globulin Ratio 0.5 (1.0-1.7) Vitamin B12 Level 243 pg/mL (247-911) Thyroid Stimulating Hormone (TSH) 1.020 uIU/mL (0.358-3.74) Bedside Troponin I 0.03 ng/ml (<0.08) Urine Collection Type Unknown Urine Color Yellow Urine Clarity Clear Urine pH 5.5 Urine Specific [place] 1.020 Urine Protein 100 mg/dL (NEG-TRACE) Urine Glucose (UA) Negative mg/dL (NEG) Urine Ketones (Stick) Negative mg/dL (NEG) Urine Blood Trace (NEG) Urine Nitrite Negative (NEG) Urine Bilirubin Negative (NEG) Urine Urobilinogen Dipstick 0.2 mg/dL (0.2 mg/dL) Urine Leukocyte Esterase Negative (NEG) Urine RBC 0 /HPF (0-2) Urine WBC Occ /HPF (0-4) Urine Squamous Epithelial Cells Occ /LPF Urine Amorphous Sediment Present /HPF Urine Bacteria 0 /HPF (0-FEW) Urine Hyaline Casts Occasional /HPF Urine Mucus Mod /LPF Stool Occult Blood Positive (NEG) Influenza Type A Antigen Negative (NEGATIVE) Influenza Type B Antigen Negative (NEGATIVE) ASSESSMENT/PLAN ASSESSMENT/PLAN 1. CAP/fever: ID following 2. Microcytic hypochromic anemia: Hgb at 6.6. +fecal occult. GI following 3. CP/dyspnea: likely due to above. Initial trop nml, EKG SR without acute changes by comparison 4. HTN: labile 5. DM2/HLP 6. CAD: CABG 2011 7. Obesity Recommendations 1. Obtain baseline TTE. Obtain repeat trop. 2. Continue with secondary prevention. Resume ASA once OK with GI. Continue home BP regimen 3. Will arrange for cardiology follow up and will arrange for outpt stress test. 4. Blood transfusion ongoing. YUE MODI APRN Jan 01, 2019 12:04
[2019-01-01] MEDS: FERROUS SULFATE ORAL 300 MG/5 ML SOLUTION. PO SCH ×2 (12:29→17:10)
[2019-01-01] MEDS: PANTOPRAZOLE 40 MG TABLET.DR. PO SCH (12:29)
[2019-01-01] MEDS: CYANOCOBALAMIN (VITAMIN B-12) 1,000 MCG TABLET. PO SCH (12:32)
--- NOTE | 2019-01-01 16:11 | CARD ---
MR#: [id number] Date of Study: 01/01/2019 Ordering Physician: YUE MODI, Referring Physician: RUPAL GUTIERREZ Tech: Tamela Mariemilagro APPROVED REPORT EXAM: Two-dimensional and M-mode echocardiogram with Doppler and color Doppler. Other Information Quality : Average INDICATION Chest Pain 2D DIMENSIONS RVDd3.6 (2.9-3.5cm)Left Atrium(2D)4.4 (1.6-4.0cm) IVSd1.6 (0.7-1.1cm)Aortic Root(2D)3.3 (2.0-3.7cm) LVDd5.3 (3.9-5.9cm)LVOT Diameter2.3 (1.8-2.4cm) PWd1.3 (0.7-1.1cm)LVDs4.1 (2.5-4.0cm) FS (%) 23.7 %SV63.9 ml Aortic Valve AoV Peak Lobo.136.2cm/sAoV VTI27.0cm AO Peak GR.7.4mmHgLVOT VTI 18.21cm AO Mean GR.5mmHg Mitral Valve MV E Hqvextgf46.7cm/sMV DECEL [id number] MV A Qucebmny70.7cm/sE/A Ratio1.0 TDI Lateral E' P. V11.78cm/sMedial E' P. V8.17cm/s E/Lateral E'7.6E/Medial E'11.0 Tricuspid Valve TR P. Jwwrppte121xf/sRAP [id number] TR Peak Gr.33xaXmNIOV22idFh Pulmonary Vein S1 Yumgiwls49.1cm/sS2 Ltjrxhuv90.72cm/s D2 Gciodcwc02.7cm/s LEFT VENTRICLE The left ventricle is normal size. There is mild concentric left ventricular hypertrophy. The left ve ntricular systolic function is normal and the ejection fraction is within normal range. Left ventricu lar ejection fraction is 55-60%. There is normal LV segmental wall motion. The left ventricular diast olic function and filling is normal for age. RIGHT VENTRICLE The right ventricle is normal size. There is normal right ventricular wall thickness. The right ventr icular systolic function is normal. ATRIA The left atrium size is normal. The right atrium is mildly dilated. The interatrial septum is intact with no evidence for an atrial septal defect or patent foramen ovale as noted on 2-D or Doppler imagi ng. AORTIC VALVE The aortic valve is not well visualized. Doppler and Color Flow revealed no significant aortic regurg itation. There is no significant aortic valvular stenosis. MITRAL VALVE The mitral valve is thickened but opens well. There is no evidence of mitral valve prolapse. There is no mitral valve stenosis. Doppler and Color-flow revealed trace mitral regurgitation. TRICUSPID VALVE The tricuspid valve is not well visualized. Doppler and Color Flow revealed trace tricuspid regurgita tion with an estimated PAP of 37 mmHg. There is mild pulmonary hypertension. There is no tricuspid va lve stenosis. PULMONIC VALVE The pulmonic valve is not well visualized. Doppler and Color Flow revealed trace pulmonic valvular re gurgitation. GREAT VESSELS The aortic root is normal in size. The IVC is normal in size and collapses >50% with inspiration. PERICARDIAL EFFUSION There is no evidence of significant pericardial effusion. Critical Notification Critical Value: No <Conclusion> The left ventricle is normal size. The left ventricular systolic function is normal and the ejection fraction is within normal range. Left ventricular ejection fraction is 55-60%. There is mild concentric left ventricular hypertrophy. There is no significant aortic valvular stenosis. Doppler and Color Flow revealed no significant aortic regurgitation. Doppler and Color-flow revealed trace mitral regurgitation. Doppler and Color Flow revealed trace tricuspid regurgitation with an estimated PAP of 37 mmHg. There is mild pulmonary hypertension. Signed by : Fuad Rios MD Electronically Approved : 01/01/2019 16:09:01
--- NOTE | 2019-01-01 16:45 | PDOC ---
Provider Note Provider Note Consult received. Patient interviewed and examined, chart reviewed, and [facility] Shane note reviewed from 10/2018. Severe bilateral knee OA, and flexion contractures. Multiple medical issues currently, pneumonia and severe anemia. His current health status precludes TKA at this time. Would recommend nonop treatment for now. It's been several years since his last cortisone injections into knee. I recommend a cortisone injections into both knee joints. Some risk of immune suppression, however there may be improved pulmonary symptoms with steroids, and there's not much systemic effect anyway from intra-articular injections. He agrees with bilat knee cortisone injections. Verbal and written consent was obtained. A timeout was performed with the RN. The skin was prepared in sterile fashion with a Chlorhexidine swab. I injected both knee joints, each with 80 mg of Depo-Medrol and 3 cc of 0.5% bupivacaine, under sterile technique. The patient tolerated the procedure well. A Band-Aid was placed on each knee. NICHOLAS DELGADO MD Jan 01, 2019 16:45
[2019-01-01] MEDS ORDERED: BUPIVACAINE MPF 0.25% 10 ML VIAL. IJ ONE (17:00)
[2019-01-01] MEDS ORDERED: methylPREDNISolone ACETATE 80 MG/ML VIAL. INT ART ONE (17:00)
[2019-01-01] MEDS: metFORMIN 500 MG TABLET PO SCH (17:09)
--- NOTE | 2019-01-01 17:39 | PDOC2 ---
CONSULT Date of Consult Date of Consult DATE: 01/01/19 TIME: 17:29 Reason for Consult Reason for Consult: Bilateral knee osteoarthritis Identification/Chief Complaint Chief Complaint His main complaint to me is that he is short of breath. He also says he has bad knees and needs to get something done Source Source: Chart review, Patient History of Present Illness Reason for Visit: This 63-year-old gentleman is an inmate at the [facility] and was admitted to the hospital with a hemoglobin of 6, and shortness of breath. He has a history of coronary artery bypass surgery, and diverticulitis. He has been transfused several units in the last day or 2, and GI is on board. CT scan shows a possible pneumonia. He is on antibiotics for pneumonia. He has bilateral knees that have prevented walking for some time now. He really can't walk and is in a wheelchair most of the time. I reviewed his notes when he saw Dr. Lynn in October, and he has severe flexion contractures of both knees. He has some remote injury such as a tibia fracture. Past Medical History Cardiovascular: CAD, HTN, Hyperlipidemia Pulmonary: Pneumonia GI: Diverticulosis, GERD, Hemorrhoids Musculoskeletal: Osteoarthritis Renal/: Chronic renal failure Endocrine: Diabetes (2) Past Surgical History Past Surgical History: CABG, Other (left elbow surgery) Family History Family History: Adopted Social History Social History Incarcerated No ALCOHOL: none Drugs: None Lives: Alone Current Problem List Problem List Problems Medical Problems: (1) GI bleed Status: Acute Current Medications Current Medications Current Medications Aspirin (Children'S Aspirin) 324 mg 1X ONCE PO Last administered on 01/01/19at 01:00; Start 01/01/19 at 01:00; Stop 01/01/19 at 01:01; Status DC Iohexol (Omnipaque 350 Mg/ml) 75 ml 1X ONCE IV Last administered on 01/01/19at 02:46; Start 01/01/19 at 03:00; Stop 01/01/19 at 03:01; Status DC Info (CONTRAST GIVEN -- Rx MONITORING) 1 each PRN DAILY PRN MC SEE COMMENTS; Start 01/01/19 at 02:45; Stop 01/03/19 at 02:44 Levofloxacin/ Dextrose 150 ml @ 100 mls/hr 1X ONCE IV Last administered on 01/01/19at 04:31; Start 01/01/19 at 04:00; Stop 01/01/19 at 05:29; Status DC Ondansetron HCl (Zofran) 4 mg PRN Q8HRS PRN IV NAUSEA/VOMITING 1ST CHOICE; Start 01/01/19 at 04:30; Stop 01/01/19 at 08:54; Status DC Acetaminophen (Tylenol) 650 mg PRN Q4HRS PRN PO FEVER; Start 01/01/19 at 04:30; Stop 01/02/19 at 04:29 Albuterol/ Ipratropium (Duoneb) 3 ml RTQID NEB Last administered on 01/01/19at 15 :30; Start 01/01/19 at 08:00; Stop 01/02/19 at 07:59 Pantoprazole Sodium (PROTONIX VIAL for IV PUSH) 80 mg 1X ONCE IVP ; Start at 05:00; Stop 01/01/19 at 05:01; Status DC Acetaminophen (Tylenol) 650 mg 1X PRN PRN PO PRE-TRANSFUSION; Start 01/01/19 at 04:45 Diphenhydramine HCl (Benadryl Oral Elixir) 12.5 mg 1X PRN PRN PO PRE- TRANSFUSION; Start 01/01/19 at 04:45 Linezolid/Dextrose 300 ml @ 300 mls/hr Q12HR IV Last administered on 01/01/19at 10:04; Start 01/01/19 at 09:00 Piperacillin Sod/ Tazobactam Sod 3.375 gm/Sodium Chloride 50 ml @ 100 mls/hr Q6HRS IV Last administered on 01/01/19at 17:13; Start 01/01/19 at 07:45 Doxycycline Hyclate 100 mg/ Dextrose 100 ml @ 50 mls/hr Q12HR IV Last administered on 01/01/19at 10:03; Start 01/01/19 at 09:00 Influenza Virus Vaccine (Afluria Trivalent [id number] Syringe) 0.5 ml ONCE ONCE VAX IM ; Start 01/01/19 at 09:00; Stop 01/01/19 at 09:03; Status DC Ondansetron HCl (Zofran) 4 mg PRN Q6HRS PRN IV NAUSEA/VOMITING 1ST CHOICE; Start 01/01/19 at 09:00 Ketorolac Tromethamine (Toradol 15mg Vial) 15 mg 1X ONCE IM Last administered on 01/01/19at 10:01; Start 01/01/19 at 09:00; Stop 01/01/19 at 09:03; Status DC Oxycodone/ Acetaminophen (Percocet 5/325) 1 tab PRN Q4HRS PRN PO SEVERE PAIN; Start 01/01/19 at 09:00 Morphine Sulfate (Morphine Sulfate) 2 mg PRN Q2HR PRN IV MODERATE TO SEVERE PAIN; Start 01/01/19 at 09:00 Pantoprazole Sodium (Protonix) 40 mg DAILYAC PO Last administered on 01/01/19at 12:29; Start 01/01/19 at 11:30 Al Hydroxide/Mg Hydroxide (Mylanta Plus Xs) 30 ml PRN Q2HR PRN PO HEARTBURN / GAS; Start 01/01/19 at 09:00 Diphenhydramine HCl (Benadryl) 25 mg PRN QHS PRN PO INSOMNIA; Start 01/01/19 at 09:00 Nicotine (Nicoderm Cq 21mg) 1 patch PRN DAILY PRN TD SMOKING CESSATION; Start 01/01/19 at 09:00 Acetaminophen (Tylenol) 975 mg PRN Q8HRS PRN PO MILD PAIN; Start 01/01/19 at 09: 00 Atorvastatin Calcium (Lipitor) 40 mg QHS PO ; Start 01/01/19 at 21:00 Lisinopril (Prinivil) 40 mg DAILY PO Last administered on 01/01/19at 10:05; Start 01/01/19 at 09:00 Metoprolol Tartrate (Lopressor) 25 mg DAILY PO Last administered on 01/01/19at 10 :05; Start 01/01/19 at 09:00 Metformin HCl (Glucophage) 1,000 mg BIDWMEALS PO Last administered on 01/01/19at 17:09; Start 01/01/19 at 17:00 Pioglitazone HCl (Actos) 15 mg DAILY PO ; Start 01/01/19 at 09:00 Insulin Human Lispro (HumaLOG) 0-9 UNITS TIDWMEALS SQ ; Start 01/01/19 at 12:00 Dextrose (Dextrose 50%-Water Syringe) 12.5 gm PRN Q15MIN PRN IV SEE COMMENTS; Start 01/01/19 at 09:00 Ferrous Sulfate (Iron Oral Solution) 300 mg BIDWMEALS PO Last administered on at 17:10; Start 01/01/19 at 10:00 Polyethylene Glycol (miraLAX PACKET) 17 gm PRN DAILY PRN PO CONSTIPATION; Start 01/01/19 at 10:15 Cyanocobalamin (Vitamin B-12) 1,000 mcg DAILY PO Last administered on 01/01/19at 12:32; Start 01/01/19 at 10:30 Influenza Virus Vaccine (Afluria Trivalent [id number] Syringe) 0.5 ml ONCE ONCE VAX IM ; Start 01/02/19 at 09:00; Stop 01/02/19 at 09:01 Bupivacaine HCl (Sensorcaine-Mpf 0.25%) 10 ml 1X ONCE IJ Last administered on 01/01/19at 17:12; Start 01/01/19 at 17:00; Stop 01/01/19 at 17:01; Status DC Methylprednisolone Acetate (DEPO-Medrol 80MG VIAL) 160 mg 1X ONCE INT ART Last administered on 01/01/19at 17:10; Start 01/01/19 at 17:00; Stop 01/01/19 at 17: 01; Status DC Active Scripts Active Reported Hydrocortisone 453.6 Gm Oint...g. TP BID Actos (Pioglitazone Hcl) 15 Mg Tablet 1 Tab PO DAILY Lisinopril 40 Mg Tablet 1 Tab PO DAILY Tylenol (Acetaminophen) 325 Mg Tablet 3 Tab PO PRN Q8HRS PRN Protonix (Pantoprazole Sodium) 20 Mg Tablet.dr 40 Mg PO DAILY Metformin Hcl 1,000 Mg Tablet 1,000 Mg PO BIDWMEALS Atorvastatin Calcium 40 Mg Tablet 1 Tab PO DAILY Metoprolol Tartrate 25 Mg Tablet 1 Tab PO DAILY Aspirin 325 Mg Tablet 1 Tab PO DAILY Allergies Allergies: Coded Allergies: No Known Drug Allergies (Unverified , 10/21/18) ROS Respiratory: YES: Shortness of breath, SOB with excertion Cardiovascular: yes Chest Pain Musculoskeletal: Yes Gait Disturbance Physical Exam General: Alert, Cooperative HEENT: EOMI Lungs: Other (fair air movement, he got short of breath just moving around in the bed) Heart: Regular rate Abdomen: Soft Extremities: Other (both knees show severe flexion contractures although the left is worse. Maximum extension here is 40�. Both knees have diffuse enlargement, and diffuse tenderness, with palpable osteophytes, and mild malalignment, all consistent with osteoarthritis. Quadriceps and hamstring strength are fair. The right knee flexion contracture is about 15�. The right knee has varus malalignment. The left knee is difficult to tell because it is always flexed. The left knee flexion was to 100�. Right knee can flex to 115�.) Skin: No rashes, No breakdown Neuro: Normal tone, Sensation intact Psych/Mental Status: Mood NL Vitals VITALS Vital Signs Date Time Temp Pulse Resp B/P (MAP) Pulse Ox O2 Delivery O2 Flow Rate FiO2 01/01/19 15:32 98 Nasal Cannula 4.0 01/01/19 15:30 98.0 93 18 124/66 (85) 98.0 Labs Labs Laboratory Tests Test 01/01/19 00:44 01/01/19 00:54 01/01/19 01:20 01/01/19 01:51 White Blood Count 12.9 x10^3/uL (4.0-11.0) Red Blood Count 3.31 x10^6/uL (4.30-5.70) Hemoglobin 6.6 g/dL (13.0-17.5) Hematocrit 22.5 % (39.0-53.0) Mean Corpuscular Volume 68 fL (79-100) Mean Corpuscular Hemoglobin 20 pg (25-35) Mean Corpuscular Hemoglobin Concent 30 g/dL (31-37) Red Cell Distribution Width 18.4 % (11.5-14.5) Platelet Count 684 x10^3/uL (140-400) Neutrophils (%) (Auto) 87 % (31-73) Lymphocytes (%) (Auto) 5 % (24-48) Monocytes (%) (Auto) 6 % (0-9) Eosinophils (%) (Auto) 0 % (0-3) Basophils (%) (Auto) 2 % (0-3) Neutrophils # (Auto) 11.2 x10^3uL (1.8-7.7) Lymphocytes # (Auto) 0.6 x10^3/uL (1.0-4.8) Monocytes # (Auto) 0.8 x10^3/uL (0.0-1.1) Eosinophils # (Auto) 0.0 x10^3/uL (0.0-0.7) Basophils # (Auto) 0.2 x10^3/uL (0.0-0.2) Segmented Neutrophils % 85 % (35-66) Lymphocytes % 5 % (24-48) Monocytes % 10 % (0-10) Platelet Estimate Increased (ADEQUATE) Polychromasia Slight Hypochromasia Marked Anisocytosis Slight Microcytosis Mod Reticulocyte Count (auto) 2.6 % (0.5-2.5) Prothrombin Time 14.0 SEC (11.7-14.0) Prothromb Time International Ratio 1.1 (0.8-1.1) D-Dimer (Alyssa) 3.96 ug/mlFEU (0.00-0.50) Sodium Level 136 mmol/L (136-145) Potassium Level 4.7 mmol/L (3.5-5.1) Chloride Level 101 mmol/L (98-107) Carbon Dioxide Level 24 mmol/L (21-32) Anion Gap 11 (6-14) Blood Urea Nitrogen 21 mg/dL (8-26) Creatinine 1.2 mg/dL (0.7-1.3) Estimated GFR (Cockcroft-Gault) 61.0 BUN/Creatinine Ratio 18 (6-20) Glucose Level 166 mg/dL (70-99) Calcium Level 9.2 mg/dL (8.5-10.1) Magnesium Level 1.9 mg/dL (1.8-2.4) Iron Level 12 ug/dL (65-175) Total Iron Binding Capacity 262 ug/dL (250-450) Iron Saturation 5 % (15-34) Total Bilirubin 0.6 mg/dL (0.2-1.0) Aspartate Amino Transf (AST/SGOT) 23 U/L (15-37) Alanine Aminotransferase (ALT/SGPT) 20 U/L (16-63) Alkaline Phosphatase 96 U/L (46-116) Troponin I Quantitative < 0.017 ng/mL (0.000-0.055) UX-Ymx-S-Type Natriuretic Peptide 1561 pg/mL (0-124) Total Protein 7.4 g/dL (6.4-8.2) Albumin 2.5 g/dL (3.4-5.0) Albumin/Globulin Ratio 0.5 (1.0-1.7) Vitamin B12 Level 243 pg/mL (247-911) Thyroid Stimulating Hormone (TSH) 1.020 uIU/mL (0.358-3.74) Bedside Troponin I 0.03 ng/ml (<0.08) Urine Collection Type Unknown Urine Color Yellow Urine Clarity Clear Urine pH 5.5 Urine Specific [place] 1.020 Urine Protein 100 mg/dL (NEG-TRACE) Urine Glucose (UA) Negative mg/dL (NEG) Urine Ketones (Stick) Negative mg/dL (NEG) Urine Blood Trace (NEG) Urine Nitrite Negative (NEG) Urine Bilirubin Negative (NEG) Urine Urobilinogen Dipstick 0.2 mg/dL (0.2 mg/dL) Urine Leukocyte Esterase Negative (NEG) Urine RBC 0 /HPF (0-2) Urine WBC Occ /HPF (0-4) Urine Squamous Epithelial Cells Occ /LPF Urine Amorphous Sediment Present /HPF Urine Bacteria 0 /HPF (0-FEW) Urine Hyaline Casts Occasional /HPF Urine Mucus Mod /LPF Stool Occult Blood Positive (NEG) Influenza Type A Antigen Negative (NEGATIVE) Influenza Type B Antigen Negative (NEGATIVE) Test 01/01/19 11:13 01/01/19 11:38 01/01/19 17:00 Troponin I Quantitative 0.023 ng/mL (0.000-0.055) Glucose (Fingerstick) 154 mg/dL (70-99) 115 mg/dL (70-99) Laboratory Tests Test 01/01/19 00:44 01/01/19 00:54 01/01/19 01:20 01/01/19 01:51 White Blood Count 12.9 x10^3/uL (4.0-11.0) Red Blood Count 3.31 x10^6/uL (4.30-5.70) Hemoglobin 6.6 g/dL (13.0-17.5) Hematocrit 22.5 % (39.0-53.0) Mean Corpuscular Volume 68 fL (79-100) Mean Corpuscular Hemoglobin 20 pg (25-35) Mean Corpuscular Hemoglobin Concent 30 g/dL (31-37) Red Cell Distribution Width 18.4 % (11.5-14.5) Platelet Count 684 x10^3/uL (140-400) Neutrophils (%) (Auto) 87 % (31-73) Lymphocytes (%) (Auto) 5 % (24-48) Monocytes (%) (Auto) 6 % (0-9) Eosinophils (%) (Auto) 0 % (0-3) Basophils (%) (Auto) 2 % (0-3) Neutrophils # (Auto) 11.2 x10^3uL (1.8-7.7) Lymphocytes # (Auto) 0.6 x10^3/uL (1.0-4.8) Monocytes # (Auto) 0.8 x10^3/uL (0.0-1.1) Eosinophils # (Auto) 0.0 x10^3/uL (0.0-0.7) Basophils # (Auto) 0.2 x10^3/uL (0.0-0.2) Segmented Neutrophils % 85 % (35-66) Lymphocytes % 5 % (24-48) Monocytes % 10 % (0-10) Platelet Estimate Increased (ADEQUATE) Polychromasia Slight Hypochromasia Marked Anisocytosis Slight Microcytosis Mod Reticulocyte Count (auto) 2.6 % (0.5-2.5) Prothrombin Time 14.0 SEC (11.7-14.0) Prothromb Time International Ratio 1.1 (0.8-1.1) D-Dimer (Alyssa) 3.96 ug/mlFEU (0.00-0.50) Sodium Level 136 mmol/L (136-145) Potassium Level 4.7 mmol/L (3.5-5.1) Chloride Level 101 mmol/L (98-107) Carbon Dioxide Level 24 mmol/L (21-32) Anion Gap 11 (6-14) Blood Urea Nitrogen 21 mg/dL (8-26) Creatinine 1.2 mg/dL (0.7-1.3) Estimated GFR (Cockcroft-Gault) 61.0 BUN/Creatinine Ratio 18 (6-20) Glucose Level 166 mg/dL (70-99) Calcium Level 9.2 mg/dL (8.5-10.1) Magnesium Level 1.9 mg/dL (1.8-2.4) Iron Level 12 ug/dL (65-175) Total Iron Binding Capacity 262 ug/dL (250-450) Iron Saturation 5 % (15-34) Total Bilirubin 0.6 mg/dL (0.2-1.0) Aspartate Amino Transf (AST/SGOT) 23 U/L (15-37) Alanine Aminotransferase (ALT/SGPT) 20 U/L (16-63) Alkaline Phosphatase 96 U/L (46-116) Troponin I Quantitative < 0.017 ng/mL (0.000-0.055) KT-Gtq-J-Type Natriuretic Peptide 1561 pg/mL (0-124) Total Protein 7.4 g/dL (6.4-8.2) Albumin 2.5 g/dL (3.4-5.0) Albumin/Globulin Ratio 0.5 (1.0-1.7) Vitamin B12 Level 243 pg/mL (247-911) Thyroid Stimulating Hormone (TSH) 1.020 uIU/mL (0.358-3.74) Bedside Troponin I 0.03 ng/ml (<0.08) Urine Collection Type Unknown Urine Color Yellow Urine Clarity Clear Urine pH 5.5 Urine Specific [place] 1.020 Urine Protein 100 mg/dL (NEG-TRACE) Urine Glucose (UA) Negative mg/dL (NEG) Urine Ketones (Stick) Negative mg/dL (NEG) Urine Blood Trace (NEG) Urine Nitrite Negative (NEG) Urine Bilirubin Negative (NEG) Urine Urobilinogen Dipstick 0.2 mg/dL (0.2 mg/dL) Urine Leukocyte Esterase Negative (NEG) Urine RBC 0 /HPF (0-2) Urine WBC Occ /HPF (0-4) Urine Squamous Epithelial Cells Occ /LPF Urine Amorphous Sediment Present /HPF Urine Bacteria 0 /HPF (0-FEW) Urine Hyaline Casts Occasional /HPF Urine Mucus Mod /LPF Stool Occult Blood Positive (NEG) Influenza Type A Antigen Negative (NEGATIVE) Influenza Type B Antigen Negative (NEGATIVE) Test 01/01/19 11:13 01/01/19 11:38 01/01/19 17:00 Troponin I Quantitative 0.023 ng/mL (0.000-0.055) Glucose (Fingerstick) 154 mg/dL (70-99) 115 mg/dL (70-99) Images Images I reviewed x-rays of both knees. There are [id number] changes. There are very few osteophytes considering the amount of narrowing, so an inflammatory component could be considered, such as rheumatoid arthritis. There is a prior left tibia and fibula fracture which are healed. Assessment/Plan Assessment/Plan Severe arthritis of both knees, osteoarthritis versus an inflammatory arthritis. Severe flexion contractures of both knees. His current medical situation with anemia and pneumonia, preclude any consideration of knee arthroplasty which is quite high risk to begin with. His severe flexion contracture on the left knee would be a high risk to develop nerve or artery injury during the corrective surgery, and I recommend referring him to a subspecialist "Adult Reconstruction" orthopaedic surgeon (at or [facility]) to consider knee arthroplasty, once his health has improved. With the current pneumonia he should wait at least a few months before undergoing knee arthroplasty, and I recommended trying the cortisone injections that he discussed with Dr. Lynn. He said it's been several years since he had a cortisone injection. His current health status precludes TKA at this time. Would recommend nonop treatment for now. It's been several years since his last cortisone injections into knee. I recommend a cortisone injections into both knee joints. Some risk of immune suppression, however there may be improved pulmonary symptoms with steroids, and there's not much systemic effect anyway from intra-articular injections. He agrees with bilat knee cortisone injections. (Done, see provider note.) NICHOLAS DELGADO MD Jan 01, 2019 17:39
[2019-01-01] MEDS: ATORVASTATIN CALCIUM 40 MG TABLET. PO SCH (20:38)
[2019-01-01] MEDS: diphenhydrAMINE HCL 25 MG CAPSULE PO PRN (20:40)
[2019-01-01] MEDS: oxyCODONE/APAP 5/325 1 TAB TABLET PO PRN (20:41)
[2019-01-02] MEDS: PIPERACILLIN/TAZOBACTAM 3.375 GM in IV NORMAL SALINE 50ML 50 ML IV SCH ×4 (00:16→17:50)
[2019-01-02 03:20] VITALS: BP 115/65
[2019-01-02 04:31] LABS: BASO # 0.1 x10^3/uL (0.0-0.2); BASO % 1 % (0-3); EOS % 0 % (0-3); HEMATOCRIT 26.7 % (39.0-53.0); HEMOGLOBIN 8.1 g/dL (13.0-17.5); LYMPH # 0.3 x10^3/uL (1.0-4.8); LYMPH % 3 % (24-48); MEAN CORPUSCULAR HEMOGLOBIN 21 pg (25-35); MEAN CORPUSCULAR HGB CONC 30 g/dL (31-37); MEAN CORPUSCULAR VOLUME 71 fL (79-100); MONO # 0.2 x10^3/uL (0.0-1.1); MONO % 2 % (0-9); NEUT # 10.4 x10^3uL (1.8-7.7); NEUT % 95 % (31-73); PLATELET COUNT 600 x10^3/uL (140-400); RED BLOOD COUNT 3.78 x10^6/uL (4.30-5.70)
[2019-01-02 04:52] LABS: ALBUMIN 2.2 g/dL (3.4-5.0); ALBUMIN/GLOBULIN RATIO 0.4 (1.0-1.7); CALCIUM 8.7 mg/dL (8.5-10.1); CREATININE 1.3 mg/dL (0.7-1.3); GFR 55.6; POTASSIUM 4.2 mmol/L (3.5-5.1); TOTAL BILIRUBIN 0.9 mg/dL (0.2-1.0); TOTAL PROTEIN 7.3 g/dL (6.4-8.2)
[2019-01-02 07:30] VITALS: BP 113/67
[2019-01-02] MEDS: PANTOPRAZOLE 40 MG TABLET.DR. PO SCH (09:06)
[2019-01-02] MEDS: LISINOPRIL 20 MG TABLET PO SCH (09:06)
[2019-01-02] MEDS: metFORMIN 500 MG TABLET PO SCH ×2 (09:06→16:56)
[2019-01-02] MEDS: LACTOBACILLUS RHAMNOSUS GG 1 CAPSULE. PO SCH ×2 (09:06→21:40)
[2019-01-02] MEDS: METOPROLOL TART IMMED RELEASE 25 MG TABLET. PO SCH (09:07)
[2019-01-02] MEDS: FERROUS SULFATE ORAL 300 MG/5 ML SOLUTION. PO SCH ×2 (09:07→16:56)
[2019-01-02] MEDS: CYANOCOBALAMIN (VITAMIN B-12) 1,000 MCG TABLET. PO SCH (09:07)
[2019-01-02] MEDS: PIOGLITAZONE 15 MG TABLET. PO SCH (09:07)
[2019-01-02] MEDS: INSULIN LISPRO 300 UNITS/3 ML INSULN.PEN. SQ SCH ×3 (09:12→17:27)
[2019-01-02] MEDS: DOXYCYCLINE HYCLATE 100 MG in IV DEXTROSE 5% 100ML 100 ML IV SCH ×2 (09:13→21:41)
--- NOTE | 2019-01-02 10:08 | PDOC ---
PROGRESS NOTES Chief Complaint Chief Complaint Multi lobar pneumonia in an nonsmoker-in and in immunocompetent patient Sepsis secondary to above, no organ dysfunction Hemoccult-positive Acute precipitous drop of hemoglobin Reactive thrombocytosis Leukocytosis in the background of sepsis Diabetes type 2-controlled Chest pain, nonpleuritic-history of CAD and CABG Bilateral knee OA-s/p injections bilateral (01/01/19) History of Present Illness History of Present Illness He had injections bilateral knees and feels much better No increase in SOA He did have a bout of coughing spells this morning No fevers No leukocytosis Appreciate ID appreciate cardiology seeing the patient- CPM for now Plan Okay to upgrade to regular diet Continue antibiotics for now I would not give a flu shot to this patient we're actually treating for multi lobar pneumonia So far Prelim blood cultures negative Vitals Vitals Vital Signs Date Time Temp Pulse Resp B/P (MAP) Pulse Ox O2 Delivery O2 Flow Rate FiO2 01/02/19 09:07 84 113/67 01/02/19 08:54 92 Nasal Cannula 3.0 01/02/19 07:30 97.3 20 97.3 Physical Exam General: Alert, Cooperative Heart: Regular rate Lungs: Clear Abdomen: Soft Extremities: Other (both knees show severe flexion contractures although the left is worse. Maximum extension here is 40�. Both knees have diffuse enlargement, and diffuse tenderness, with palpable osteophytes, and mild malalignment, all consistent with osteoarthritis. Quadriceps and hamstring strength are fair. The right knee flexion contracture is about 15�. The right knee has varus malalignment. The left knee is difficult to tell because it is always flexed. The left knee flexion was to 100�. Right knee can flex to 115�.) Skin: No rashes, No breakdown Labs LABS Laboratory Tests Test 01/01/19 11:13 01/01/19 11:38 01/01/19 17:00 01/01/19 21:15 Troponin I Quantitative 0.023 ng/mL (0.000-0.055) Glucose (Fingerstick) 154 mg/dL (70-99) 115 mg/dL (70-99) 208 mg/dL (70-99) Test 01/02/19 04:00 01/02/19 07:31 White Blood Count 11.0 x10^3/uL (4.0-11.0) Red Blood Count 3.78 x10^6/uL (4.30-5.70) Hemoglobin 8.1 g/dL (13.0-17.5) Hematocrit 26.7 % (39.0-53.0) Mean Corpuscular Volume 71 fL (79-100) Mean Corpuscular Hemoglobin 21 pg (25-35) Mean Corpuscular Hemoglobin Concent 30 g/dL (31-37) Red Cell Distribution Width 19.0 % (11.5-14.5) Platelet Count 600 x10^3/uL (140-400) Neutrophils (%) (Auto) 95 % (31-73) Lymphocytes (%) (Auto) 3 % (24-48) Monocytes (%) (Auto) 2 % (0-9) Eosinophils (%) (Auto) 0 % (0-3) Basophils (%) (Auto) 1 % (0-3) Neutrophils # (Auto) 10.4 x10^3uL (1.8-7.7) Lymphocytes # (Auto) 0.3 x10^3/uL (1.0-4.8) Monocytes # (Auto) 0.2 x10^3/uL (0.0-1.1) Eosinophils # (Auto) 0.0 x10^3/uL (0.0-0.7) Basophils # (Auto) 0.1 x10^3/uL (0.0-0.2) Sodium Level 134 mmol/L (136-145) Potassium Level 4.2 mmol/L (3.5-5.1) Chloride Level 100 mmol/L (98-107) Carbon Dioxide Level 23 mmol/L (21-32) Anion Gap 11 (6-14) Blood Urea Nitrogen 21 mg/dL (8-26) Creatinine 1.3 mg/dL (0.7-1.3) Estimated GFR (Cockcroft-Gault) 55.6 BUN/Creatinine Ratio 16 (6-20) Glucose Level 196 mg/dL (70-99) Calcium Level 8.7 mg/dL (8.5-10.1) Total Bilirubin 0.9 mg/dL (0.2-1.0) Aspartate Amino Transf (AST/SGOT) 27 U/L (15-37) Alanine Aminotransferase (ALT/SGPT) 23 U/L (16-63) Alkaline Phosphatase 116 U/L (46-116) Total Protein 7.3 g/dL (6.4-8.2) Albumin 2.2 g/dL (3.4-5.0) Albumin/Globulin Ratio 0.4 (1.0-1.7) Glucose (Fingerstick) 184 mg/dL (70-99) Review of Systems Review of Systems A 14 point ROS was completed with the following noted as positive: Other systems reviewed and negative. \CONSTITUTIONAL: No fever or chills EYES: No recent changes SKIN: No rash or itching CARDIOVASCULAR: No chest pain, syncope, palpitations, or edema RESPIRATORY: GASTROINTESTINAL: No nausea, vomiting or abdominal pain NEUROLOGICAL: No headaches or weakness ENDOCRINE: No cold or heat intolerance GENITOURINARY: No urgency or frequency of urination MUSCULOSKELETAL: LYMPHATICS: No enlarged lymph nodes PSYCHIATRIC: No anxiety or depression Assessment and Plan Assessmemt and Plan Problems Medical Problems: (1) GI bleed Status: Acute Comment Review of Relevant I have reviewed the following items sulema (where applicable) has been applied. Labs Laboratory Tests Test 01/01/19 00:44 01/01/19 00:54 01/01/19 01:20 01/01/19 01:51 White Blood Count 12.9 x10^3/uL (4.0-11.0) Red Blood Count 3.31 x10^6/uL (4.30-5.70) Hemoglobin 6.6 g/dL (13.0-17.5) Hematocrit 22.5 % (39.0-53.0) Mean Corpuscular Volume 68 fL (79-100) Mean Corpuscular Hemoglobin 20 pg (25-35) Mean Corpuscular Hemoglobin Concent 30 g/dL (31-37) Red Cell Distribution Width 18.4 % (11.5-14.5) Platelet Count 684 x10^3/uL (140-400) Neutrophils (%) (Auto) 87 % (31-73) Lymphocytes (%) (Auto) 5 % (24-48) Monocytes (%) (Auto) 6 % (0-9) Eosinophils (%) (Auto) 0 % (0-3) Basophils (%) (Auto) 2 % (0-3) Neutrophils # (Auto) 11.2 x10^3uL (1.8-7.7) Lymphocytes # (Auto) 0.6 x10^3/uL (1.0-4.8) Monocytes # (Auto) 0.8 x10^3/uL (0.0-1.1) Eosinophils # (Auto) 0.0 x10^3/uL (0.0-0.7) Basophils # (Auto) 0.2 x10^3/uL (0.0-0.2) Segmented Neutrophils % 85 % (35-66) Lymphocytes % 5 % (24-48) Monocytes % 10 % (0-10) Platelet Estimate Increased (ADEQUATE) Polychromasia Slight Hypochromasia Marked Anisocytosis Slight Microcytosis Mod Reticulocyte Count (auto) 2.6 % (0.5-2.5) Prothrombin Time 14.0 SEC (11.7-14.0) Prothromb Time International Ratio 1.1 (0.8-1.1) D-Dimer (Alyssa) 3.96 ug/mlFEU (0.00-0.50) Sodium Level 136 mmol/L (136-145) Potassium Level 4.7 mmol/L (3.5-5.1) Chloride Level 101 mmol/L (98-107) Carbon Dioxide Level 24 mmol/L (21-32) Anion Gap 11 (6-14) Blood Urea Nitrogen 21 mg/dL (8-26) Creatinine 1.2 mg/dL (0.7-1.3) Estimated GFR (Cockcroft-Gault) 61.0 BUN/Creatinine Ratio 18 (6-20) Glucose Level 166 mg/dL (70-99) Calcium Level 9.2 mg/dL (8.5-10.1) Magnesium Level 1.9 mg/dL (1.8-2.4) Iron Level 12 ug/dL (65-175) Total Iron Binding Capacity 262 ug/dL (250-450) Iron Saturation 5 % (15-34) Total Bilirubin 0.6 mg/dL (0.2-1.0) Aspartate Amino Transf (AST/SGOT) 23 U/L (15-37) Alanine Aminotransferase (ALT/SGPT) 20 U/L (16-63) Alkaline Phosphatase 96 U/L (46-116) Troponin I Quantitative < 0.017 ng/mL (0.000-0.055) NL-Yxy-U-Type Natriuretic Peptide 1561 pg/mL (0-124) Total Protein 7.4 g/dL (6.4-8.2) Albumin 2.5 g/dL (3.4-5.0) Albumin/Globulin Ratio 0.5 (1.0-1.7) Vitamin B12 Level 243 pg/mL (247-911) Thyroid Stimulating Hormone (TSH) 1.020 uIU/mL (0.358-3.74) Bedside Troponin I 0.03 ng/ml (<0.08) Urine Collection Type Unknown Urine Color Yellow Urine Clarity Clear Urine pH 5.5 Urine Specific [place] 1.020 Urine Protein 100 mg/dL (NEG-TRACE) Urine Glucose (UA) Negative mg/dL (NEG) Urine Ketones (Stick) Negative mg/dL (NEG) Urine Blood Trace (NEG) Urine Nitrite Negative (NEG) Urine Bilirubin Negative (NEG) Urine Urobilinogen Dipstick 0.2 mg/dL (0.2 mg/dL) Urine Leukocyte Esterase Negative (NEG) Urine RBC 0 /HPF (0-2) Urine WBC Occ /HPF (0-4) Urine Squamous Epithelial Cells Occ /LPF Urine Amorphous Sediment Present /HPF Urine Bacteria 0 /HPF (0-FEW) Urine Hyaline Casts Occasional /HPF Urine Mucus Mod /LPF Stool Occult Blood Positive (NEG) Influenza Type A Antigen Negative (NEGATIVE) Influenza Type B Antigen Negative (NEGATIVE) Test 01/01/19 06:00 01/01/19 11:13 01/01/19 11:38 01/01/19 17:00 Nasal Screen MRSA (PCR) Negative (Negative) Troponin I Quantitative 0.023 ng/mL (0.000-0.055) Glucose (Fingerstick) 154 mg/dL (70-99) 115 mg/dL (70-99) Test 01/01/19 21:15 01/02/19 04:00 01/02/19 07:31 Glucose (Fingerstick) 208 mg/dL (70-99) 184 mg/dL (70-99) White Blood Count 11.0 x10^3/uL (4.0-11.0) Red Blood Count 3.78 x10^6/uL (4.30-5.70) Hemoglobin 8.1 g/dL (13.0-17.5) Hematocrit 26.7 % (39.0-53.0) Mean Corpuscular Volume 71 fL (79-100) Mean Corpuscular Hemoglobin 21 pg (25-35) Mean Corpuscular Hemoglobin Concent 30 g/dL (31-37) Red Cell Distribution Width 19.0 % (11.5-14.5) Platelet Count 600 x10^3/uL (140-400) Neutrophils (%) (Auto) 95 % (31-73) Lymphocytes (%) (Auto) 3 % (24-48) Monocytes (%) (Auto) 2 % (0-9) Eosinophils (%) (Auto) 0 % (0-3) Basophils (%) (Auto) 1 % (0-3) Neutrophils # (Auto) 10.4 x10^3uL (1.8-7.7) Lymphocytes # (Auto) 0.3 x10^3/uL (1.0-4.8) Monocytes # (Auto) 0.2 x10^3/uL (0.0-1.1) Eosinophils # (Auto) 0.0 x10^3/uL (0.0-0.7) Basophils # (Auto) 0.1 x10^3/uL (0.0-0.2) Sodium Level 134 mmol/L (136-145) Potassium Level 4.2 mmol/L (3.5-5.1) Chloride Level 100 mmol/L (98-107) Carbon Dioxide Level 23 mmol/L (21-32) Anion Gap 11 (6-14) Blood Urea Nitrogen 21 mg/dL (8-26) Creatinine 1.3 mg/dL (0.7-1.3) Estimated GFR (Cockcroft-Gault) 55.6 BUN/Creatinine Ratio 16 (6-20) Glucose Level 196 mg/dL (70-99) Calcium Level 8.7 mg/dL (8.5-10.1) Total Bilirubin 0.9 mg/dL (0.2-1.0) Aspartate Amino Transf (AST/SGOT) 27 U/L (15-37) Alanine Aminotransferase (ALT/SGPT) 23 U/L (16-63) Alkaline Phosphatase 116 U/L (46-116) Total Protein 7.3 g/dL (6.4-8.2) Albumin 2.2 g/dL (3.4-5.0) Albumin/Globulin Ratio 0.4 (1.0-1.7) Laboratory Tests Test 01/01/19 11:13 01/01/19 11:38 01/01/19 17:00 01/01/19 21:15 Troponin I Quantitative 0.023 ng/mL (0.000-0.055) Glucose (Fingerstick) 154 mg/dL (70-99) 115 mg/dL (70-99) 208 mg/dL (70-99) Test 01/02/19 04:00 01/02/19 07:31 White Blood Count 11.0 x10^3/uL (4.0-11.0) Red Blood Count 3.78 x10^6/uL (4.30-5.70) Hemoglobin 8.1 g/dL (13.0-17.5) Hematocrit 26.7 % (39.0-53.0) Mean Corpuscular Volume 71 fL (79-100) Mean Corpuscular Hemoglobin 21 pg (25-35) Mean Corpuscular Hemoglobin Concent 30 g/dL (31-37) Red Cell Distribution Width 19.0 % (11.5-14.5) Platelet Count 600 x10^3/uL (140-400) Neutrophils (%) (Auto) 95 % (31-73) Lymphocytes (%) (Auto) 3 % (24-48) Monocytes (%) (Auto) 2 % (0-9) Eosinophils (%) (Auto) 0 % (0-3) Basophils (%) (Auto) 1 % (0-3) Neutrophils # (Auto) 10.4 x10^3uL (1.8-7.7) Lymphocytes # (Auto) 0.3 x10^3/uL (1.0-4.8) Monocytes # (Auto) 0.2 x10^3/uL (0.0-1.1) Eosinophils # (Auto) 0.0 x10^3/uL (0.0-0.7) Basophils # (Auto) 0.1 x10^3/uL (0.0-0.2) Sodium Level 134 mmol/L (136-145) Potassium Level 4.2 mmol/L (3.5-5.1) Chloride Level 100 mmol/L (98-107) Carbon Dioxide Level 23 mmol/L (21-32) Anion Gap 11 (6-14) Blood Urea Nitrogen 21 mg/dL (8-26) Creatinine 1.3 mg/dL (0.7-1.3) Estimated GFR (Cockcroft-Gault) 55.6 BUN/Creatinine Ratio 16 (6-20) Glucose Level 196 mg/dL (70-99) Calcium Level 8.7 mg/dL (8.5-10.1) Total Bilirubin 0.9 mg/dL (0.2-1.0) Aspartate Amino Transf (AST/SGOT) 27 U/L (15-37) Alanine Aminotransferase (ALT/SGPT) 23 U/L (16-63) Alkaline Phosphatase 116 U/L (46-116) Total Protein 7.3 g/dL (6.4-8.2) Albumin 2.2 g/dL (3.4-5.0) Albumin/Globulin Ratio 0.4 (1.0-1.7) Glucose (Fingerstick) 184 mg/dL (70-99) Microbiology 01/01/19 Blood Culture - Preliminary, Resulted NO GROWTH AFTER 1 DAY Medications Current Medications Aspirin (Children'S Aspirin) 324 mg 1X ONCE PO Last administered on 01/01/19at 01:00; Start 01/01/19 at 01:00; Stop 01/01/19 at 01:01; Status DC Iohexol (Omnipaque 350 Mg/ml) 75 ml 1X ONCE IV Last administered on 01/01/19at 02:46; Start 01/01/19 at 03:00; Stop 01/01/19 at 03:01; Status DC Info (CONTRAST GIVEN -- Rx MONITORING) 1 each PRN DAILY PRN MC SEE COMMENTS; Start 01/01/19 at 02:45; Stop 01/03/19 at 02:44 Levofloxacin/ Dextrose 150 ml @ 100 mls/hr 1X ONCE IV Last administered on 01/01/19at 04:31; Start 01/01/19 at 04:00; Stop 01/01/19 at 05:29; Status DC Ondansetron HCl (Zofran) 4 mg PRN Q8HRS PRN IV NAUSEA/VOMITING 1ST CHOICE; Start 01/01/19 at 04:30; Stop 01/01/19 at 08:54; Status DC Acetaminophen (Tylenol) 650 mg PRN Q4HRS PRN PO FEVER; Start 01/01/19 at 04:30; Stop 01/02/19 at 04:29; Status DC Albuterol/ Ipratropium (Duoneb) 3 ml RTQID NEB Last administered on 01/01/19at 20 :42; Start 01/01/19 at 08:00; Stop 01/02/19 at 07:59; Status DC Pantoprazole Sodium (PROTONIX VIAL for IV PUSH) 80 mg 1X ONCE IVP ; Start at 05:00; Stop 01/01/19 at 05:01; Status DC Acetaminophen (Tylenol) 650 mg 1X PRN PRN PO PRE-TRANSFUSION; Start 01/01/19 at 04:45; Stop 01/02/19 at 08:59; Status DC Diphenhydramine HCl (Benadryl Oral Elixir) 12.5 mg 1X PRN PRN PO PRE- TRANSFUSION; Start 01/01/19 at 04:45 Linezolid/Dextrose 300 ml @ 300 mls/hr Q12HR IV Last administered on 01/01/19at 21:44; Start 01/01/19 at 09:00 Piperacillin Sod/ Tazobactam Sod 3.375 gm/Sodium Chloride 50 ml @ 100 mls/hr Q6HRS IV Last administered on 01/02/19at 04:57; Start 01/01/19 at 07:45 Doxycycline Hyclate 100 mg/ Dextrose 100 ml @ 50 mls/hr Q12HR IV Last administered on 01/02/19at 09:13; Start 01/01/19 at 09:00 Influenza Virus Vaccine (Afluria Trivalent 3636-2306 Syringe) 0.5 ml ONCE ONCE VAX IM ; Start 01/01/19 at 09:00; Stop 01/01/19 at 09:03; Status DC Ondansetron HCl (Zofran) 4 mg PRN Q6HRS PRN IV NAUSEA/VOMITING 1ST CHOICE; Start 01/01/19 at 09:00 Ketorolac Tromethamine (Toradol 15mg Vial) 15 mg 1X ONCE IM Last administered on 01/01/19at 10:01; Start 01/01/19 at 09:00; Stop 01/01/19 at 09:03; Status DC Oxycodone/ Acetaminophen (Percocet 5/325) 1 tab PRN Q4HRS PRN PO SEVERE PAIN Last administered on 01/01/19 20:41; Start 01/01/19 at 09:00 Morphine Sulfate (Morphine Sulfate) 2 mg PRN Q2HR PRN IV MODERATE TO SEVERE PAIN; Start 01/01/19 at 09:00 Pantoprazole Sodium (Protonix) 40 mg DAILYAC PO Last administered on 01/02/19 09:06; Start 01/01/19 at 11:30 Al Hydroxide/Mg Hydroxide (Mylanta Plus Xs) 30 ml PRN Q2HR PRN PO HEARTBURN / GAS; Start 01/01/19 at 09:00 Diphenhydramine HCl (Benadryl) 25 mg PRN QHS PRN PO INSOMNIA Last administered on 01/01/19 20:40; Start 01/01/19 at 09:00 Nicotine (Nicoderm Cq 21mg) 1 patch PRN DAILY PRN TD SMOKING CESSATION; Start 01/01/19 at 09:00 Acetaminophen (Tylenol) 975 mg PRN Q8HRS PRN PO MILD PAIN; Start 01/01/19 at 09: 00 Atorvastatin Calcium (Lipitor) 40 mg QHS PO Last administered on 01/01/19 20:38 ; Start 01/01/19 at 21:00 Lisinopril (Prinivil) 40 mg DAILY PO Last administered on 01/02/19 09:06; Start 01/01/19 at 09:00 Metoprolol Tartrate (Lopressor) 25 mg DAILY PO Last administered on 01/02/19 09 :07; Start 01/01/19 at 09:00 Metformin HCl (Glucophage) 1,000 mg BIDWMEALS PO Last administered on 01/02/19 09:06; Start 01/01/19 at 17:00 Pioglitazone HCl (Actos) 15 mg DAILY PO Last administered on 01/02/19 09:07; Start 01/01/19 at 09:00 Insulin Human Lispro (HumaLOG) 0-9 UNITS TIDWMEALS SQ Last administered on 09:12; Start 01/01/19 at 12:00 Dextrose (Dextrose 50%-Water Syringe) 12.5 gm PRN Q15MIN PRN IV SEE COMMENTS; Start 01/01/19 at 09:00 Ferrous Sulfate (Iron Oral Solution) 300 mg BIDWMEALS PO Last administered on 2 /2/19at 09:07; Start 01/01/19 at 10:00 Polyethylene Glycol (miraLAX PACKET) 17 gm PRN DAILY PRN PO CONSTIPATION; Start 01/01/19 at 10:15 Cyanocobalamin (Vitamin B-12) 1,000 mcg DAILY PO Last administered on 01/02/19at 09:07; Start 01/01/19 at 10:30 Influenza Virus Vaccine (Afluria Trivalent [id number] Syringe) 0.5 ml ONCE ONCE VAX IM ; Start 01/02/19 at 09:00; Stop 01/02/19 at 09:01; Status DC Bupivacaine HCl (Sensorcaine-Mpf 0.25%) 10 ml 1X ONCE IJ Last administered on 01/01/19at 17:12; Start 01/01/19 at 17:00; Stop 01/01/19 at 17:01; Status DC Methylprednisolone Acetate (DEPO-Medrol 80MG VIAL) 160 mg 1X ONCE INT ART Last administered on 01/01/19at 17:10; Start 01/01/19 at 17:00; Stop 01/01/19 at 17: 01; Status DC Lactobacillus Rhamnosus (Culturelle) 1 cap BID PO Last administered on at 09:06; Start 01/02/19 at 09:00 Albuterol/ Ipratropium (Duoneb) 3 ml RTQID NEB ; Start 01/02/19 at 12:00 Active Scripts Active Reported Hydrocortisone 453.6 Gm Oint...g. TP BID Actos (Pioglitazone Hcl) 15 Mg Tablet 1 Tab PO DAILY Lisinopril 40 Mg Tablet 1 Tab PO DAILY Tylenol (Acetaminophen) 325 Mg Tablet 3 Tab PO PRN Q8HRS PRN Protonix (Pantoprazole Sodium) 20 Mg Tablet.dr 40 Mg PO DAILY Metformin Hcl 1,000 Mg Tablet 1,000 Mg PO BIDWMEALS Atorvastatin Calcium 40 Mg Tablet 1 Tab PO DAILY Metoprolol Tartrate 25 Mg Tablet 1 Tab PO DAILY Aspirin 325 Mg Tablet 1 Tab PO DAILY Vitals/I & O Vital Sign - Last 24 Hours 01/01/19 01/01/19 01/01/19 01/01/19 10:05 10:05 11:30 11:35 Temp 98.3 98.3 98.3 98.3 Pulse 106 106 86 82 Resp 18 18 B/P (MAP) 165/75 165/75 143/73 143/73 (96) Pulse Ox 98 O2 Delivery Nasal Cannula O2 Flow Rate 4.0 01/01/19 01/01/19 01/01/19 01/01/19 11:35 12:26 12:43 15:30 Temp 98.3 98.3 98.0 98.3 98.3 98.0 Pulse 87 93 93 Resp 18 18 18 B/P (MAP) 143/73 161/82 124/66 (85) Pulse Ox 95 O2 Delivery Nasal Cannula Nasal Cannula O2 Flow Rate 4.0 4.0 01/01/19 01/01/19 01/01/19 01/01/19 15:32 19:27 19:52 20:41 Temp 98.4 98.4 Pulse 103 Resp 20 20 B/P (MAP) 114/63 (80) Pulse Ox 98 96 O2 Delivery Nasal Cannula Nasal Cannula Nasal Cannula Nasal Cannula O2 Flow Rate 4.0 3.0 3.0 3.0 01/01/19 01/01/19 01/01/19 01/02/19 20:42 21:41 22:32 03:20 Temp 98.7 97.4 98.7 97.4 Pulse 94 82 Resp 20 16 16 B/P (MAP) 123/72 (89) 115/65 (82) Pulse Ox 94 95 95 O2 Delivery Nasal Cannula Nasal Cannula Nasal Cannula Nasal Cannula O2 Flow Rate 3.0 3.0 3.0 3.5 01/02/19 01/02/19 01/02/19 01/02/19 07:30 08:54 09:06 09:07 Temp 97.3 97.3 Pulse 84 84 84 Resp 20 B/P (MAP) 113/67 (82) 113/67 113/67 Pulse Ox 93 92 O2 Delivery Nasal Cannula Nasal Cannula O2 Flow Rate 3.5 3.0 Intake and Output 01/01/19 01/01/19 01/02/19 15:01 23:01 07:01 Intake Total 350 ml 500 ml 500 ml Output Total 700 ml 625 ml Balance 350 ml -200 ml -125 ml MINNIE SEXTON MD Jan 02, 2019 10:08
--- NOTE | 2019-01-02 10:34 | PDOC ---
Infectious Disease Note Subjective Subjective Comfortable, denies pain No fevers last 24 hours Hungry, remains on clear liquids Denies N/V/D/SOA ROS ROS per HPI Vital Sign Vital Signs Vital Signs Date Time Temp Pulse Resp B/P (MAP) Pulse Ox O2 Delivery O2 Flow Rate FiO2 01/02/19 09:07 84 113/67 01/02/19 08:54 92 Nasal Cannula 3.0 01/02/19 07:30 97.3 20 97.3 Physical Exam PHYSICAL EXAM GENERAL: Propped up in bed, relaxed appearance HEENT: Pupils equal and reactive. Normal conjunctivae. Oral cavity, pharynx was clear. NECK: Supple with good range of motion. LUNGS: Decreased in the bases, no wheeze. Trace rhonchi. HEART: S1, S2. ABDOMEN: Soft, nontender, nondistended, no guarding, no rebound. EXTREMITIES: No clubbing, cyanosis or gross edema. SKIN: Warm to touch without generalized signs of rash. NEUROLOGIC: He is alert and oriented. He is nonfocal. Labs Lab Laboratory Tests Test 01/01/19 11:13 01/01/19 11:38 01/01/19 17:00 01/01/19 21:15 Troponin I Quantitative 0.023 ng/mL (0.000-0.055) Glucose (Fingerstick) 154 mg/dL (70-99) 115 mg/dL (70-99) 208 mg/dL (70-99) Test 01/02/19 04:00 01/02/19 07:31 White Blood Count 11.0 x10^3/uL (4.0-11.0) Red Blood Count 3.78 x10^6/uL (4.30-5.70) Hemoglobin 8.1 g/dL (13.0-17.5) Hematocrit 26.7 % (39.0-53.0) Mean Corpuscular Volume 71 fL (79-100) Mean Corpuscular Hemoglobin 21 pg (25-35) Mean Corpuscular Hemoglobin Concent 30 g/dL (31-37) Red Cell Distribution Width 19.0 % (11.5-14.5) Platelet Count 600 x10^3/uL (140-400) Neutrophils (%) (Auto) 95 % (31-73) Lymphocytes (%) (Auto) 3 % (24-48) Monocytes (%) (Auto) 2 % (0-9) Eosinophils (%) (Auto) 0 % (0-3) Basophils (%) (Auto) 1 % (0-3) Neutrophils # (Auto) 10.4 x10^3uL (1.8-7.7) Lymphocytes # (Auto) 0.3 x10^3/uL (1.0-4.8) Monocytes # (Auto) 0.2 x10^3/uL (0.0-1.1) Eosinophils # (Auto) 0.0 x10^3/uL (0.0-0.7) Basophils # (Auto) 0.1 x10^3/uL (0.0-0.2) Sodium Level 134 mmol/L (136-145) Potassium Level 4.2 mmol/L (3.5-5.1) Chloride Level 100 mmol/L (98-107) Carbon Dioxide Level 23 mmol/L (21-32) Anion Gap 11 (6-14) Blood Urea Nitrogen 21 mg/dL (8-26) Creatinine 1.3 mg/dL (0.7-1.3) Estimated GFR (Cockcroft-Gault) 55.6 BUN/Creatinine Ratio 16 (6-20) Glucose Level 196 mg/dL (70-99) Calcium Level 8.7 mg/dL (8.5-10.1) Total Bilirubin 0.9 mg/dL (0.2-1.0) Aspartate Amino Transf (AST/SGOT) 27 U/L (15-37) Alanine Aminotransferase (ALT/SGPT) 23 U/L (16-63) Alkaline Phosphatase 116 U/L (46-116) Total Protein 7.3 g/dL (6.4-8.2) Albumin 2.2 g/dL (3.4-5.0) Albumin/Globulin Ratio 0.4 (1.0-1.7) Glucose (Fingerstick) 184 mg/dL (70-99) Micro Microbiology 01/01/19 Blood Culture - Preliminary, Resulted NO GROWTH AFTER 1 DAY Objective Assessment Fever - better Leukocytosis - better Community-acquired pneumonia. Anemia s/p PRBCs Questionable gastrointestinal bleed with history of diverticulitis, and occult positive. Diabetes. Arthritic knees s/p steriod injection, 01/01 Plan Plan of Care Zyvox/Zosyn/Doxy Strep/Legionella antigens pending GI following F/u labs and cults Supportive care Attending Co-Sign The patient was seen and interviewed as well as examined at the bedside. The chart was reviewed. The case was discussed. Agree with the plan of care. RUBEN EASLEY APRN Jan 02, 2019 10:34 ISRAEL OLSON MD Jan 02, 2019 12:02
[2019-01-02 11:25] VITALS: BP 130/72
[2019-01-02] MEDS: IPRATRPIUM/ALBUTEROL 0.5/2.5MG 3 ML NEBU. NEB SCH ×3 (11:57→20:00)
[2019-01-02 15:40] VITALS: BP 143/121
[2019-01-02 19:35] VITALS: BP 119/65
[2019-01-02] MEDS: diphenhydrAMINE HCL 25 MG CAPSULE PO PRN (21:40)
[2019-01-02] MEDS: oxyCODONE/APAP 5/325 1 TAB TABLET PO PRN (21:40)
[2019-01-02] MEDS: ATORVASTATIN CALCIUM 40 MG TABLET. PO SCH (21:41)
[2019-01-02 23:30] VITALS: BP 131/73
[2019-01-03] MEDS: PIPERACILLIN/TAZOBACTAM 3.375 GM in IV NORMAL SALINE 50ML 50 ML IV SCH ×4 (00:14→18:32)
[2019-01-03 03:00] VITALS: BP 134/71
[2019-01-03 04:10] LABS: BASO % 0 % (0-3); EOS % 0 % (0-3); HEMOGLOBIN 7.2 g/dL (13.0-17.5); LYMPH # 0.8 x10^3/uL (1.0-4.8); LYMPH % 5 % (24-48); MEAN CORPUSCULAR HEMOGLOBIN 21 pg (25-35); MEAN CORPUSCULAR HGB CONC 30 g/dL (31-37); MEAN CORPUSCULAR VOLUME 71 fL (79-100); MONO % 7 % (0-9); NEUT # 12.7 x10^3uL (1.8-7.7); NEUT % 88 % (31-73); PLATELET COUNT 637 x10^3/uL (140-400); RED BLOOD COUNT 3.39 x10^6/uL (4.30-5.70); RED CELL DISTRIBUTION WIDTH 19.8 % (11.5-14.5); WHITE BLOOD COUNT 14.5 x10^3/uL (4.0-11.0)
[2019-01-03 07:50] VITALS: BP 131/62
[2019-01-03] MEDS: IPRATRPIUM/ALBUTEROL 0.5/2.5MG 3 ML NEBU. NEB SCH ×4 (07:57→21:04)
[2019-01-03] MEDS: INSULIN LISPRO 300 UNITS/3 ML INSULN.PEN. SQ SCH ×3 (08:00→17:00)
--- NOTE | 2019-01-03 08:38 | PDOC ---
Infectious Disease Note Subjective Subjective Comfortable, denies pain c/o some SOA with exertion Regular diet now No fevers/chills Denies N/V/D/CP ROS ROS per HPI Vital Sign Vital Signs Vital Signs Date Time Temp Pulse Resp B/P (MAP) Pulse Ox O2 Delivery O2 Flow Rate FiO2 01/03/19 07:58 94 Nasal Cannula 3.0 01/03/19 07:50 97.9 73 20 131/62 (85) 97.9 Physical Exam PHYSICAL EXAM GENERAL: Sitting on the side of the bed, alert, eating HEENT: Oral cavity, pharynx was clear. NECK: Supple with good range of motion. LUNGS: Improved aeration HEART: S1, S2. ABDOMEN: Soft, nontender, nondistended, no guarding, no rebound. EXTREMITIES: No clubbing, cyanosis or gross edema. SKIN: Warm to touch without generalized signs of rash. NEUROLOGIC: Alert and oriented PIV ok Labs Lab Laboratory Tests Test 01/02/19 11:58 01/02/19 17:14 01/02/19 20:29 01/03/19 03:55 Glucose (Fingerstick) 226 mg/dL (70-99) 152 mg/dL (70-99) 165 mg/dL (70-99) White Blood Count 14.5 x10^3/uL (4.0-11.0) Red Blood Count 3.39 x10^6/uL (4.30-5.70) Hemoglobin 7.2 g/dL (13.0-17.5) Hematocrit 24.0 % (39.0-53.0) Mean Corpuscular Volume 71 fL (79-100) Mean Corpuscular Hemoglobin 21 pg (25-35) Mean Corpuscular Hemoglobin Concent 30 g/dL (31-37) Red Cell Distribution Width 19.8 % (11.5-14.5) Platelet Count 637 x10^3/uL (140-400) Neutrophils (%) (Auto) 88 % (31-73) Lymphocytes (%) (Auto) 5 % (24-48) Monocytes (%) (Auto) 7 % (0-9) Eosinophils (%) (Auto) 0 % (0-3) Basophils (%) (Auto) 0 % (0-3) Neutrophils # (Auto) 12.7 x10^3uL (1.8-7.7) Lymphocytes # (Auto) 0.8 x10^3/uL (1.0-4.8) Monocytes # (Auto) 1.0 x10^3/uL (0.0-1.1) Eosinophils # (Auto) 0.0 x10^3/uL (0.0-0.7) Basophils # (Auto) 0.0 x10^3/uL (0.0-0.2) Erythrocyte Sedimentation Rate 111 (0-15) Test 01/03/19 04:00 01/03/19 07:53 Magnesium Level 1.9 mg/dL (1.8-2.4) Glucose (Fingerstick) 135 mg/dL (70-99) Micro Microbiology 01/01/19 Blood Culture - Preliminary, Resulted NO GROWTH AFTER 2 DAY Objective Assessment Fever - better Leukocytosis - better, now up post steroid injection and PRBCs Community-acquired pneumonia. Anemia s/p PRBCs Questionable gastrointestinal bleed with history of diverticulitis, and occult positive. Diabetes. Arthritic knees s/p steroid injection, 01/01 Plan Plan of Care Zyvox, Zosyn and Doxy Strep/Legionella antigens pending GI following F/u labs and cults Supportive care Attending Co-Sign The patient was seen and interviewed as well as examined at the bedside. The chart was reviewed. The case was discussed. Agree with the plan of care. RUBEN EASLEY APRN Jan 03, 2019 08:38 ISRAEL OLSON MD Jan 03, 2019 13:02
[2019-01-03] MEDS: PIOGLITAZONE 15 MG TABLET. PO SCH (08:49)
[2019-01-03] MEDS: LACTOBACILLUS RHAMNOSUS GG 1 CAPSULE. PO SCH ×2 (08:49→21:26)
[2019-01-03] MEDS: METOPROLOL TART IMMED RELEASE 25 MG TABLET. PO SCH (08:50)
[2019-01-03] MEDS: CYANOCOBALAMIN (VITAMIN B-12) 1,000 MCG TABLET. PO SCH (08:50)
[2019-01-03] MEDS: PANTOPRAZOLE 40 MG TABLET.DR. PO SCH (08:50)
[2019-01-03] MEDS: LISINOPRIL 20 MG TABLET PO SCH (08:50)
[2019-01-03] MEDS: metFORMIN 500 MG TABLET PO SCH ×2 (08:50→17:17)
[2019-01-03] MEDS: FERROUS SULFATE ORAL 300 MG/5 ML SOLUTION. PO SCH (08:50)
--- NOTE | 2019-01-03 09:58 | PDOC ---
PROGRESS NOTES Chief Complaint Chief Complaint Multi lobar pneumonia in an nonsmoker-in and in immunocompetent patient Sepsis secondary to above, no organ dysfunction Hemoccult-positive MARIA DEL CARMEN Acute precipitous drop of hemoglobin Reactive thrombocytosis Leukocytosis in the background of sepsis Diabetes type 2-controlled Chest pain, nonpleuritic-history of CAD and CABG Bilateral knee OA-s/p injections bilateral (01/01/19) History of Present Illness History of Present Illness He had injections bilateral knees and feels much better No increase in SOA He did have a bout of coughing spells this morning No fevers No leukocytosis Appreciate ID - multi lobar PNA appreciate cardiology seeing the patient- CPM for now - was consulted for CP upon exertion, hx CAD.CABG Hemoglobin 7.2-MCV is low 70s Started on iron supplements by GI on Friday Hemoccult-positive so far no reports of obvious bleeding Plan: Iron panel for completion's sake Continue ferrous sulfate H&H again tomorrow Continue antibiotics per ID Ok to t.o CVC floor Vitals Vitals Vital Signs Date Time Temp Pulse Resp B/P (MAP) Pulse Ox O2 Delivery O2 Flow Rate FiO2 01/03/19 08:50 73 131/62 01/03/19 08:00 Nasal Cannula 3.0 01/03/19 07:58 94 01/03/19 07:50 97.9 20 97.9 Physical Exam Physical Exam GENERAL: Sitting on the side of the bed, alert, eating HEENT: Oral cavity, pharynx was clear. NECK: Supple with good range of motion. LUNGS: Improved aeration HEART: S1, S2. ABDOMEN: Soft, nontender, nondistended, no guarding, no rebound. EXTREMITIES: No clubbing, cyanosis or gross edema. SKIN: Warm to touch without generalized signs of rash. NEUROLOGIC: Alert and oriented PIV ok General: Alert, Cooperative Heart: Regular rate Lungs: Clear Abdomen: Soft Extremities: Other (both knees show severe flexion contractures although the left is worse. Maximum extension here is 40�. Both knees have diffuse enlargement, and diffuse tenderness, with palpable osteophytes, and mild malalignment, all consistent with osteoarthritis. Quadriceps and hamstring strength are fair. The right knee flexion contracture is about 15�. The right knee has varus malalignment. The left knee is difficult to tell because it is always flexed. The left knee flexion was to 100�. Right knee can flex to 115�.) Skin: No rashes, No breakdown Labs LABS Laboratory Tests Test 01/02/19 11:58 01/02/19 17:14 01/02/19 20:29 01/03/19 03:55 Glucose (Fingerstick) 226 mg/dL (70-99) 152 mg/dL (70-99) 165 mg/dL (70-99) White Blood Count 14.5 x10^3/uL (4.0-11.0) Red Blood Count 3.39 x10^6/uL (4.30-5.70) Hemoglobin 7.2 g/dL (13.0-17.5) Hematocrit 24.0 % (39.0-53.0) Mean Corpuscular Volume 71 fL (79-100) Mean Corpuscular Hemoglobin 21 pg (25-35) Mean Corpuscular Hemoglobin Concent 30 g/dL (31-37) Red Cell Distribution Width 19.8 % (11.5-14.5) Platelet Count 637 x10^3/uL (140-400) Neutrophils (%) (Auto) 88 % (31-73) Lymphocytes (%) (Auto) 5 % (24-48) Monocytes (%) (Auto) 7 % (0-9) Eosinophils (%) (Auto) 0 % (0-3) Basophils (%) (Auto) 0 % (0-3) Neutrophils # (Auto) 12.7 x10^3uL (1.8-7.7) Lymphocytes # (Auto) 0.8 x10^3/uL (1.0-4.8) Monocytes # (Auto) 1.0 x10^3/uL (0.0-1.1) Eosinophils # (Auto) 0.0 x10^3/uL (0.0-0.7) Basophils # (Auto) 0.0 x10^3/uL (0.0-0.2) Erythrocyte Sedimentation Rate 111 (0-15) Test 01/03/19 04:00 01/03/19 07:53 Magnesium Level 1.9 mg/dL (1.8-2.4) Glucose (Fingerstick) 135 mg/dL (70-99) Review of Systems Review of Systems A 14 point ROS was completed with the following noted as positive: Other systems reviewed and negative. \CONSTITUTIONAL: No fever or chills EYES: No recent changes SKIN: No rash or itching CARDIOVASCULAR: No chest pain, syncope, palpitations, or edema RESPIRATORY: No SOB or cough GASTROINTESTINAL: No nausea, vomiting or abdominal pain NEUROLOGICAL: No headaches or weakness ENDOCRINE: No cold or heat intolerance GENITOURINARY: No urgency or frequency of urination MUSCULOSKELETAL: No back pain or joint pain LYMPHATICS: No enlarged lymph nodes PSYCHIATRIC: No anxiety or depression Assessment and Plan Assessmemt and Plan Problems Medical Problems: (1) GI bleed Status: Acute Comment Review of Relevant I have reviewed the following items sulema (where applicable) has been applied. Labs Laboratory Tests Test 01/01/19 11:13 01/01/19 11:38 01/01/19 17:00 01/01/19 21:15 Troponin I Quantitative 0.023 ng/mL (0.000-0.055) Glucose (Fingerstick) 154 mg/dL (70-99) 115 mg/dL (70-99) 208 mg/dL (70-99) Test 01/02/19 04:00 01/02/19 07:31 01/02/19 11:58 01/02/19 17:14 White Blood Count 11.0 x10^3/uL (4.0-11.0) Red Blood Count 3.78 x10^6/uL (4.30-5.70) Hemoglobin 8.1 g/dL (13.0-17.5) Hematocrit 26.7 % (39.0-53.0) Mean Corpuscular Volume 71 fL (79-100) Mean Corpuscular Hemoglobin 21 pg (25-35) Mean Corpuscular Hemoglobin Concent 30 g/dL (31-37) Red Cell Distribution Width 19.0 % (11.5-14.5) Platelet Count 600 x10^3/uL (140-400) Neutrophils (%) (Auto) 95 % (31-73) Lymphocytes (%) (Auto) 3 % (24-48) Monocytes (%) (Auto) 2 % (0-9) Eosinophils (%) (Auto) 0 % (0-3) Basophils (%) (Auto) 1 % (0-3) Neutrophils # (Auto) 10.4 x10^3uL (1.8-7.7) Lymphocytes # (Auto) 0.3 x10^3/uL (1.0-4.8) Monocytes # (Auto) 0.2 x10^3/uL (0.0-1.1) Eosinophils # (Auto) 0.0 x10^3/uL (0.0-0.7) Basophils # (Auto) 0.1 x10^3/uL (0.0-0.2) Sodium Level 134 mmol/L (136-145) Potassium Level 4.2 mmol/L (3.5-5.1) Chloride Level 100 mmol/L (98-107) Carbon Dioxide Level 23 mmol/L (21-32) Anion Gap 11 (6-14) Blood Urea Nitrogen 21 mg/dL (8-26) Creatinine 1.3 mg/dL (0.7-1.3) Estimated GFR (Cockcroft-Gault) 55.6 BUN/Creatinine Ratio 16 (6-20) Glucose Level 196 mg/dL (70-99) Calcium Level 8.7 mg/dL (8.5-10.1) Total Bilirubin 0.9 mg/dL (0.2-1.0) Aspartate Amino Transf (AST/SGOT) 27 U/L (15-37) Alanine Aminotransferase (ALT/SGPT) 23 U/L (16-63) Alkaline Phosphatase 116 U/L (46-116) Total Protein 7.3 g/dL (6.4-8.2) Albumin 2.2 g/dL (3.4-5.0) Albumin/Globulin Ratio 0.4 (1.0-1.7) Glucose (Fingerstick) 184 mg/dL (70-99) 226 mg/dL (70-99) 152 mg/dL (70-99) Test 01/02/19 20:29 01/03/19 03:55 01/03/19 04:00 01/03/19 07:53 Glucose (Fingerstick) 165 mg/dL (70-99) 135 mg/dL (70-99) White Blood Count 14.5 x10^3/uL (4.0-11.0) Red Blood Count 3.39 x10^6/uL (4.30-5.70) Hemoglobin 7.2 g/dL (13.0-17.5) Hematocrit 24.0 % (39.0-53.0) Mean Corpuscular Volume 71 fL (79-100) Mean Corpuscular Hemoglobin 21 pg (25-35) Mean Corpuscular Hemoglobin Concent 30 g/dL (31-37) Red Cell Distribution Width 19.8 % (11.5-14.5) Platelet Count 637 x10^3/uL (140-400) Neutrophils (%) (Auto) 88 % (31-73) Lymphocytes (%) (Auto) 5 % (24-48) Monocytes (%) (Auto) 7 % (0-9) Eosinophils (%) (Auto) 0 % (0-3) Basophils (%) (Auto) 0 % (0-3) Neutrophils # (Auto) 12.7 x10^3uL (1.8-7.7) Lymphocytes # (Auto) 0.8 x10^3/uL (1.0-4.8) Monocytes # (Auto) 1.0 x10^3/uL (0.0-1.1) Eosinophils # (Auto) 0.0 x10^3/uL (0.0-0.7) Basophils # (Auto) 0.0 x10^3/uL (0.0-0.2) Erythrocyte Sedimentation Rate 111 (0-15) Magnesium Level 1.9 mg/dL (1.8-2.4) Laboratory Tests Test 01/02/19 11:58 01/02/19 17:14 01/02/19 20:29 01/03/19 03:55 Glucose (Fingerstick) 226 mg/dL (70-99) 152 mg/dL (70-99) 165 mg/dL (70-99) White Blood Count 14.5 x10^3/uL (4.0-11.0) Red Blood Count 3.39 x10^6/uL (4.30-5.70) Hemoglobin 7.2 g/dL (13.0-17.5) Hematocrit 24.0 % (39.0-53.0) Mean Corpuscular Volume 71 fL (79-100) Mean Corpuscular Hemoglobin 21 pg (25-35) Mean Corpuscular Hemoglobin Concent 30 g/dL (31-37) Red Cell Distribution Width 19.8 % (11.5-14.5) Platelet Count 637 x10^3/uL (140-400) Neutrophils (%) (Auto) 88 % (31-73) Lymphocytes (%) (Auto) 5 % (24-48) Monocytes (%) (Auto) 7 % (0-9) Eosinophils (%) (Auto) 0 % (0-3) Basophils (%) (Auto) 0 % (0-3) Neutrophils # (Auto) 12.7 x10^3uL (1.8-7.7) Lymphocytes # (Auto) 0.8 x10^3/uL (1.0-4.8) Monocytes # (Auto) 1.0 x10^3/uL (0.0-1.1) Eosinophils # (Auto) 0.0 x10^3/uL (0.0-0.7) Basophils # (Auto) 0.0 x10^3/uL (0.0-0.2) Erythrocyte Sedimentation Rate 111 (0-15) Test 01/03/19 04:00 01/03/19 07:53 Magnesium Level 1.9 mg/dL (1.8-2.4) Glucose (Fingerstick) 135 mg/dL (70-99) Microbiology 01/01/19 Blood Culture - Preliminary, Resulted NO GROWTH AFTER 2 DAYS Medications Current Medications Aspirin (Children'S Aspirin) 324 mg 1X ONCE PO Last administered on 01/01/19at 01:00; Start 01/01/19 at 01:00; Stop 01/01/19 at 01:01; Status DC Iohexol (Omnipaque 350 Mg/ml) 75 ml 1X ONCE IV Last administered on 01/01/19at 02:46; Start 01/01/19 at 03:00; Stop 01/01/19 at 03:01; Status DC Info (CONTRAST GIVEN -- Rx MONITORING) 1 each PRN DAILY PRN MC SEE COMMENTS; Start 01/01/19 at 02:45; Stop 01/03/19 at 02:44; Status DC Levofloxacin/ Dextrose 150 ml @ 100 mls/hr 1X ONCE IV Last administered on 01/01/19at 04:31; Start 01/01/19 at 04:00; Stop 01/01/19 at 05:29; Status DC Ondansetron HCl (Zofran) 4 mg PRN Q8HRS PRN IV NAUSEA/VOMITING 1ST CHOICE; Start 01/01/19 at 04:30; Stop 01/01/19 at 08:54; Status DC Acetaminophen (Tylenol) 650 mg PRN Q4HRS PRN PO FEVER; Start 01/01/19 at 04:30; Stop 01/02/19 at 04:29; Status DC Albuterol/ Ipratropium (Duoneb) 3 ml RTQID NEB Last administered on 01/01/19at 20 :42; Start 01/01/19 at 08:00; Stop 01/02/19 at 07:59; Status DC Pantoprazole Sodium (PROTONIX VIAL for IV PUSH) 80 mg 1X ONCE IVP ; Start at 05:00; Stop 01/01/19 at 05:01; Status DC Acetaminophen (Tylenol) 650 mg 1X PRN PRN PO PRE-TRANSFUSION; Start 01/01/19 at 04:45; Stop 01/02/19 at 08:59; Status DC Diphenhydramine HCl (Benadryl Oral Elixir) 12.5 mg 1X PRN PRN PO PRE- TRANSFUSION; Start 01/01/19 at 04:45 Linezolid/Dextrose 300 ml @ 300 mls/hr Q12HR IV Last administered on 01/03/19at 08:52; Start 01/01/19 at 09:00 Piperacillin Sod/ Tazobactam Sod 3.375 gm/Sodium Chloride 50 ml @ 100 mls/hr Q6HRS IV Last administered on 01/03/19at 06:28; Start 01/01/19 at 07:45 Doxycycline Hyclate 100 mg/ Dextrose 100 ml @ 50 mls/hr Q12HR IV Last administered on 01/02/19at 21:41; Start 01/01/19 at 09:00 Influenza Virus Vaccine (Afluria Trivalent 6699-0560 Syringe) 0.5 ml ONCE ONCE VAX IM ; Start 01/01/19 at 09:00; Stop 01/01/19 at 09:03; Status DC Ondansetron HCl (Zofran) 4 mg PRN Q6HRS PRN IV NAUSEA/VOMITING 1ST CHOICE; Start 01/01/19 at 09:00 Ketorolac Tromethamine (Toradol 15mg Vial) 15 mg 1X ONCE IM Last administered on 01/01/19at 10:01; Start 01/01/19 at 09:00; Stop 01/01/19 at 09:03; Status DC Oxycodone/ Acetaminophen (Percocet 5/325) 1 tab PRN Q4HRS PRN PO SEVERE PAIN Last administered on 01/02/19 21:40; Start 01/01/19 at 09:00 Morphine Sulfate (Morphine Sulfate) 2 mg PRN Q2HR PRN IV MODERATE TO SEVERE PAIN; Start 01/01/19 at 09:00 Pantoprazole Sodium (Protonix) 40 mg DAILYAC PO Last administered on 01/03/19 08:50; Start 01/01/19 at 11:30 Al Hydroxide/Mg Hydroxide (Mylanta Plus Xs) 30 ml PRN Q2HR PRN PO HEARTBURN / GAS; Start 01/01/19 at 09:00 Diphenhydramine HCl (Benadryl) 25 mg PRN QHS PRN PO INSOMNIA Last administered on 01/02/19 21:40; Start 01/01/19 at 09:00 Nicotine (Nicoderm Cq 21mg) 1 patch PRN DAILY PRN TD SMOKING CESSATION; Start 01/01/19 at 09:00 Acetaminophen (Tylenol) 975 mg PRN Q8HRS PRN PO MILD PAIN; Start 01/01/19 at 09: 00 Atorvastatin Calcium (Lipitor) 40 mg QHS PO Last administered on 01/02/19 21:41 ; Start 01/01/19 at 21:00 Lisinopril (Prinivil) 40 mg DAILY PO Last administered on 01/03/19 08:50; Start 01/01/19 at 09:00 Metoprolol Tartrate (Lopressor) 25 mg DAILY PO Last administered on 01/03/19 08 :50; Start 01/01/19 at 09:00 Metformin HCl (Glucophage) 1,000 mg BIDWMEALS PO Last administered on 01/03/19 08:50; Start 01/01/19 at 17:00 Pioglitazone HCl (Actos) 15 mg DAILY PO Last administered on 01/03/19 08:49; Start 01/01/19 at 09:00 Insulin Human Lispro (HumaLOG) 0-9 UNITS TIDWMEALS SQ Last administered on 17:27; Start 01/01/19 at 12:00 Dextrose (Dextrose 50%-Water Syringe) 12.5 gm PRN Q15MIN PRN IV SEE COMMENTS; Start 01/01/19 at 09:00 Ferrous Sulfate (Iron Oral Solution) 300 mg BIDWMEALS PO Last administered on at 08:50; Start 01/01/19 at 10:00 Polyethylene Glycol (miraLAX PACKET) 17 gm PRN DAILY PRN PO CONSTIPATION; Start 01/01/19 at 10:15 Cyanocobalamin (Vitamin B-12) 1,000 mcg DAILY PO Last administered on 01/03/19at 08:50; Start 01/01/19 at 10:30 Influenza Virus Vaccine (Afluria Trivalent [id number] Syringe) 0.5 ml ONCE ONCE VAX IM ; Start 01/02/19 at 09:00; Stop 01/02/19 at 09:01; Status DC Bupivacaine HCl (Sensorcaine-Mpf 0.25%) 10 ml 1X ONCE IJ Last administered on 01/01/19at 17:12; Start 01/01/19 at 17:00; Stop 01/01/19 at 17:01; Status DC Methylprednisolone Acetate (DEPO-Medrol 80MG VIAL) 160 mg 1X ONCE INT ART Last administered on 01/01/19at 17:10; Start 01/01/19 at 17:00; Stop 01/01/19 at 17: 01; Status DC Lactobacillus Rhamnosus (Culturelle) 1 cap BID PO Last administered on at 08:49; Start 01/02/19 at 09:00 Albuterol/ Ipratropium (Duoneb) 3 ml RTQID NEB Last administered on 01/03/19at 07 :57; Start 01/02/19 at 12:00 Active Scripts Active Reported Hydrocortisone 453.6 Gm Oint...g. TP BID Actos (Pioglitazone Hcl) 15 Mg Tablet 1 Tab PO DAILY Lisinopril 40 Mg Tablet 1 Tab PO DAILY Tylenol (Acetaminophen) 325 Mg Tablet 3 Tab PO PRN Q8HRS PRN Protonix (Pantoprazole Sodium) 20 Mg Tablet.dr 40 Mg PO DAILY Metformin Hcl 1,000 Mg Tablet 1,000 Mg PO BIDWMEALS Atorvastatin Calcium 40 Mg Tablet 1 Tab PO DAILY Metoprolol Tartrate 25 Mg Tablet 1 Tab PO DAILY Aspirin 325 Mg Tablet 1 Tab PO DAILY Vitals/I & O Vital Sign - Last 24 Hours 2/201/02/19 01/02/19 01/02/19 11:25 11:58 15:40 15:59 Temp 98.1 98.1 98.1 98.1 Pulse 77 105 Resp 20 22 B/P (MAP) 130/72 (91) 143/121 (128) Pulse Ox 94 97 92 93 O2 Delivery Nasal Cannula Nasal Cannula Nasal Cannula Nasal Cannula O2 Flow Rate 3.5 3.0 3.5 3.0 01/02/19 01/02/19 01/02/19 01/02/19 19:35 20:00 20:00 23:30 Temp 97.4 98.0 97.4 98.0 Pulse 102 101 Resp 19 18 B/P (MAP) 119/65 (83) 131/73 (92) Pulse Ox 89 94 92 O2 Delivery Nasal Cannula Nasal Cannula Nasal Cannula Nasal Cannula O2 Flow Rate 4.0 3.0 3.0 4.0 01/03/19 01/03/19 01/03/19 01/03/19 03:00 07:50 07:58 08:00 Temp 97.9 97.9 97.9 97.9 Pulse 90 73 Resp 18 20 B/P (MAP) 134/71 (92) 131/62 (85) Pulse Ox 92 93 94 O2 Delivery Nasal Cannula Nasal Cannula Nasal Cannula Nasal Cannula O2 Flow Rate 4.0 4.0 3.0 3.0 01/03/19 01/03/19 08:50 08:50 Pulse 73 73 B/P (MAP) 131/62 131/62 Intake and Output 01/02/19 01/02/19 01/03/19 15:01 23:01 07:01 Intake Total 1140 ml 300 ml 1200 ml Output Total 500 ml 600 ml Balance 1140 ml -200 ml 600 ml MINNIE SEXTON MD Jan 03, 2019 09:58
[2019-01-03] MEDS: DOXYCYCLINE HYCLATE 100 MG in IV DEXTROSE 5% 100ML 100 ML IV SCH ×2 (10:10→21:27)
[2019-01-03 10:37] VITALS: BP 109/52
[2019-01-03 14:37] VITALS: BP 105/59
[2019-01-03] MEDS: FERROUS SULFATE 325 MG TABLET. PO SCH (17:17)
[2019-01-03 19:30] VITALS: BP 163/90
[2019-01-03] MEDS: diphenhydrAMINE HCL 25 MG CAPSULE PO PRN (21:26)
[2019-01-03] MEDS: ATORVASTATIN CALCIUM 40 MG TABLET. PO SCH (21:26)
[2019-01-03] MEDS: oxyCODONE/APAP 5/325 1 TAB TABLET PO PRN (21:27)
--- NOTE | 2019-01-03 23:23 | NUR ---
During report, this RN was told that the patient's IV from admission had been discontinued and several attempts made to start new IV during day shift before success. At administration of 2100 antibiotics, patient's new IV was noted to be infiltrated. Attempts by Risa RN, Pilar RN, and Cee RN were unsuccessful. Nursing carpenter labor supervisor was notified and EMERGENCY DEPARTMENT RN paged. After 3 attempts, according to patient, 22 gauge IV was inserted in patient's right hand. RN to resume 2100 antibiotics at slower rate to preserve IV functionality. Will continue to monitor.
[2019-01-03 23:41] VITALS: BP 147/77
[2019-01-04 03:19] LABS: BASO % 0 % (0-3); EOS % 0 % (0-3); HEMATOCRIT 24.8 % (39.0-53.0); HEMOGLOBIN 7.4 g/dL (13.0-17.5); LYMPH # 0.9 x10^3/uL (1.0-4.8); LYMPH % 8 % (24-48); MEAN CORPUSCULAR HEMOGLOBIN 21 pg (25-35); MEAN CORPUSCULAR HGB CONC 30 g/dL (31-37); MEAN CORPUSCULAR VOLUME 71 fL (79-100); MONO % 8 % (0-9); NEUT # 9.5 x10^3uL (1.8-7.7); NEUT % 83 % (31-73); PLATELET COUNT 664 x10^3/uL (140-400); RED BLOOD COUNT 3.48 x10^6/uL (4.30-5.70); RED CELL DISTRIBUTION WIDTH 19.7 % (11.5-14.5); WHITE BLOOD COUNT 11.5 x10^3/uL (4.0-11.0)
[2019-01-04 03:40] LABS: CREATININE 1.3 mg/dL (0.7-1.3); GFR 55.6; POTASSIUM 4.1 mmol/L (3.5-5.1)
[2019-01-04 03:48] VITALS: BP 136/65
--- NOTE | 2019-01-04 04:31 | NUR ---
0000 dose zosyn held, due to lack of IV access, 2100 abx still running at 0400, not compatible with zosyn, will resume with 0600 dose
[2019-01-04] MEDS: PIPERACILLIN/TAZOBACTAM 3.375 GM in IV NORMAL SALINE 50ML 50 ML IV SCH ×6 (06:34→23:55)
[2019-01-04] MEDS: IPRATRPIUM/ALBUTEROL 0.5/2.5MG 3 ML NEBU. NEB SCH ×4 (07:39→21:14)
[2019-01-04 07:43] VITALS: BP 132/56
[2019-01-04] MEDS: INSULIN LISPRO 300 UNITS/3 ML INSULN.PEN. SQ SCH ×3 (08:00→17:00)
--- NOTE | 2019-01-04 08:24 | PDOC ---
Infectious Disease Note Subjective Subjective Comfortable, denies pain c/o some SOA with exertion Regular diet now No fevers/chills Denies N/V/D/CP Vital Sign Vital Signs Vital Signs Date Time Temp Pulse Resp B/P (MAP) Pulse Ox O2 Delivery O2 Flow Rate FiO2 01/04/19 07:43 97.8 88 18 132/56 (81) 98 Nasal Cannula 5.0 97.8 Physical Exam PHYSICAL EXAM GENERAL: Sitting on the side of the bed, alert, eating HEENT: Oral cavity, pharynx was clear. NECK: Supple with good range of motion. LUNGS: Improved aeration HEART: S1, S2. ABDOMEN: Soft, nontender, nondistended, no guarding, no rebound. EXTREMITIES: No clubbing, cyanosis or gross edema. SKIN: Warm to touch without generalized signs of rash. NEUROLOGIC: Alert and oriented PIV ok Labs Lab Laboratory Tests Test 01/03/19 09:40 01/03/19 11:57 01/03/19 17:18 01/03/19 21:16 Reticulocyte Count (auto) 1.3 % (0.5-2.5) Iron Level 18 ug/dL (65-175) Total Iron Binding Capacity 204 ug/dL (250-450) Iron Saturation 9 % (15-34) Ferritin 239 ng/mL (26-388) Glucose (Fingerstick) 205 mg/dL (70-99) 148 mg/dL (70-99) 143 mg/dL (70-99) Test 01/04/19 02:50 01/04/19 07:03 White Blood Count 11.5 x10^3/uL (4.0-11.0) Red Blood Count 3.48 x10^6/uL (4.30-5.70) Hemoglobin 7.4 g/dL (13.0-17.5) Hematocrit 24.8 % (39.0-53.0) Mean Corpuscular Volume 71 fL (79-100) Mean Corpuscular Hemoglobin 21 pg (25-35) Mean Corpuscular Hemoglobin Concent 30 g/dL (31-37) Red Cell Distribution Width 19.7 % (11.5-14.5) Platelet Count 664 x10^3/uL (140-400) Neutrophils (%) (Auto) 83 % (31-73) Lymphocytes (%) (Auto) 8 % (24-48) Monocytes (%) (Auto) 8 % (0-9) Eosinophils (%) (Auto) 0 % (0-3) Basophils (%) (Auto) 0 % (0-3) Neutrophils # (Auto) 9.5 x10^3uL (1.8-7.7) Lymphocytes # (Auto) 0.9 x10^3/uL (1.0-4.8) Monocytes # (Auto) 1.0 x10^3/uL (0.0-1.1) Eosinophils # (Auto) 0.0 x10^3/uL (0.0-0.7) Basophils # (Auto) 0.0 x10^3/uL (0.0-0.2) Sodium Level 138 mmol/L (136-145) Potassium Level 4.1 mmol/L (3.5-5.1) Chloride Level 103 mmol/L (98-107) Carbon Dioxide Level 25 mmol/L (21-32) Anion Gap 10 (6-14) Blood Urea Nitrogen 21 mg/dL (8-26) Creatinine 1.3 mg/dL (0.7-1.3) Estimated GFR (Cockcroft-Gault) 55.6 Glucose Level 139 mg/dL (70-99) Calcium Level 8.0 mg/dL (8.5-10.1) Glucose (Fingerstick) 135 mg/dL (70-99) Micro Microbiology 01/01/19 Blood Culture - Preliminary, Resulted NO GROWTH AFTER 3 DAYS Objective Assessment Fever - better Leukocytosis - better, now up post steroid injection and PRBCs Community-acquired pneumonia. Anemia s/p PRBCs Questionable gastrointestinal bleed with history of diverticulitis, and occult positive. Diabetes. Arthritic knees s/p steroid injection, 2/ CHF Plan Plan of Care Zyvox, Zosyn and Doxy Strep/Legionella antigens pending GI following F/u labs and cults Supportive care ISRAEL OLSON MD Jan 04, 2019 08:24
--- NOTE | 2019-01-04 08:42 | RAD ---
Examination: CHEST AP ONLY History: PNA Comparison/Correlation: 01/01/2019 portable chest x-ray and CTA of the chest Findings: Portable upright frontal view of the chest was obtained. Sternal wires and mediastinal clips are present. Heart size is enlarged. Pulmonary vasculature is congested. Somewhat decreased right pulmonary aeration is identified. Right basilar consolidation is somewhat increased. Increased pulmonary vasculature congestion noted. Left lung field is unremarkable. Small bilateral pleural effusions are present. Impression: Decreased aeration. Increased right lung consolidation. Congestive heart failure. Electronically signed by: Martin Sommers MD (01/04/2019 8:37 AM) [facility]
[2019-01-04] MEDS ORDERED: FUROSEMIDE 40 MG/4 ML VIAL. IVP ONE (09:00)
[2019-01-04] MEDS: CYANOCOBALAMIN (VITAMIN B-12) 1,000 MCG TABLET. PO SCH (09:09)
[2019-01-04] MEDS: FERROUS SULFATE 325 MG TABLET. PO SCH ×2 (09:09→17:42)
[2019-01-04] MEDS: metFORMIN 500 MG TABLET PO SCH ×2 (09:09→17:42)
[2019-01-04] MEDS: LACTOBACILLUS RHAMNOSUS GG 1 CAPSULE. PO SCH ×2 (09:09→20:36)
[2019-01-04] MEDS: PIOGLITAZONE 15 MG TABLET. PO SCH (09:10)
[2019-01-04] MEDS: METOPROLOL TART IMMED RELEASE 25 MG TABLET. PO SCH (09:10)
[2019-01-04] MEDS: LISINOPRIL 20 MG TABLET PO SCH (09:11)
[2019-01-04] MEDS: DOXYCYCLINE HYCLATE 100 MG in IV DEXTROSE 5% 100ML 100 ML IV SCH ×2 (09:12→20:37)
[2019-01-04] MEDS: PANTOPRAZOLE 40 MG TABLET.DR. PO SCH (09:13)
[2019-01-04 10:55] VITALS: BP 120/66
--- NOTE | 2019-01-04 11:02 | PDOC ---
Subjective: Subjective: Tolerating PO and stooling without issue. Says he doesn't know about bleeding. Still having issues w/ shortness of breath and coughing. Objective: Objective: No GI concerns per RN. Stool charted 01/02. Has Miralax ordered PRN, hasn't used. Vital Signs: Vital Signs Date Time Temp Pulse Resp B/P (MAP) Pulse Ox O2 Delivery O2 Flow Rate FiO2 01/04/19 10:55 98.3 91 20 120/66 (84) 99 Nasal Cannula 4.0 98.3 Labs: Laboratory Tests Test 01/03/19 11:57 01/03/19 17:18 01/03/19 21:16 01/04/19 02:50 Glucose (Fingerstick) 205 mg/dL 148 mg/dL 143 mg/dL White Blood Count 11.5 x10^3/uL Red Blood Count 3.48 x10^6/uL Hemoglobin 7.4 g/dL Hematocrit 24.8 % Mean Corpuscular Volume 71 fL Mean Corpuscular Hemoglobin 21 pg Mean Corpuscular Hemoglobin Concent 30 g/dL Red Cell Distribution Width 19.7 % Platelet Count 664 x10^3/uL Neutrophils (%) (Auto) 83 % Lymphocytes (%) (Auto) 8 % Monocytes (%) (Auto) 8 % Eosinophils (%) (Auto) 0 % Basophils (%) (Auto) 0 % Neutrophils # (Auto) 9.5 x10^3uL Lymphocytes # (Auto) 0.9 x10^3/uL Monocytes # (Auto) 1.0 x10^3/uL Eosinophils # (Auto) 0.0 x10^3/uL Basophils # (Auto) 0.0 x10^3/uL Sodium Level 138 mmol/L Potassium Level 4.1 mmol/L Chloride Level 103 mmol/L Carbon Dioxide Level 25 mmol/L Anion Gap 10 Blood Urea Nitrogen 21 mg/dL Creatinine 1.3 mg/dL Estimated GFR (Cockcroft-Gault) 55.6 Glucose Level 139 mg/dL Calcium Level 8.0 mg/dL [id number] Natriuretic Peptide 5022 pg/mL Test 01/04/19 07:03 01/04/19 10:24 Glucose (Fingerstick) 135 mg/dL 222 mg/dL Imaging: CXR Impression: Decreased aeration. Increased right lung consolidation. Congestive heart failure. PE: GEN: NAD LUNGS: NC, some tachypnea HEART: RRR ABD: NABS, S/ND/NT NEURO/PSYCH: A & O �3 A/P: CAP, CHF MARIA DEL CARMEN -on iron and B12 -h/o GERD on PPI -had EGD and colonoscopy 10/2018 -h/o diverticular disease/perf +fecal occult, h/o hemorrhoids CAD, OA - on ASA and NSAIDs -- Continue same per GI. Celiac panel pending, looks like H. pylori cancelled? PRASANTH LAOGS Jan 04, 2019 11:02
--- NOTE | 2019-01-04 13:19 | PDOC ---
PULMONARY PROGRESS NOTES Vitals Vital Signs Date Time Temp Pulse Resp B/P (MAP) Pulse Ox O2 Delivery O2 Flow Rate FiO2 01/04/19 12:06 95 Nasal Cannula 5.0 01/04/19 10:55 98.3 91 20 120/66 (84) 98.3 Lungs: Clear Labs Laboratory Tests Test 01/02/19 17:14 01/02/19 20:29 01/03/19 03:55 01/03/19 04:00 Glucose (Fingerstick) 152 mg/dL (70-99) 165 mg/dL (70-99) White Blood Count 14.5 x10^3/uL (4.0-11.0) Red Blood Count 3.39 x10^6/uL (4.30-5.70) Hemoglobin 7.2 g/dL (13.0-17.5) Hematocrit 24.0 % (39.0-53.0) Mean Corpuscular Volume 71 fL (79-100) Mean Corpuscular Hemoglobin 21 pg (25-35) Mean Corpuscular Hemoglobin Concent 30 g/dL (31-37) Red Cell Distribution Width 19.8 % (11.5-14.5) Platelet Count 637 x10^3/uL (140-400) Neutrophils (%) (Auto) 88 % (31-73) Lymphocytes (%) (Auto) 5 % (24-48) Monocytes (%) (Auto) 7 % (0-9) Eosinophils (%) (Auto) 0 % (0-3) Basophils (%) (Auto) 0 % (0-3) Neutrophils # (Auto) 12.7 x10^3uL (1.8-7.7) Lymphocytes # (Auto) 0.8 x10^3/uL (1.0-4.8) Monocytes # (Auto) 1.0 x10^3/uL (0.0-1.1) Eosinophils # (Auto) 0.0 x10^3/uL (0.0-0.7) Basophils # (Auto) 0.0 x10^3/uL (0.0-0.2) Erythrocyte Sedimentation Rate 111 (0-15) Magnesium Level 1.9 mg/dL (1.8-2.4) Test 01/03/19 07:53 01/03/19 09:40 01/03/19 11:57 01/03/19 17:18 Glucose (Fingerstick) 135 mg/dL (70-99) 205 mg/dL (70-99) 148 mg/dL (70-99) Reticulocyte Count (auto) 1.3 % (0.5-2.5) Iron Level 18 ug/dL (65-175) Total Iron Binding Capacity 204 ug/dL (250-450) Iron Saturation 9 % (15-34) Ferritin 239 ng/mL (26-388) Test 01/03/19 21:16 01/04/19 02:50 01/04/19 07:03 01/04/19 10:24 Glucose (Fingerstick) 143 mg/dL (70-99) 135 mg/dL (70-99) 222 mg/dL (70-99) White Blood Count 11.5 x10^3/uL (4.0-11.0) Red Blood Count 3.48 x10^6/uL (4.30-5.70) Hemoglobin 7.4 g/dL (13.0-17.5) Hematocrit 24.8 % (39.0-53.0) Mean Corpuscular Volume 71 fL (79-100) Mean Corpuscular Hemoglobin 21 pg (25-35) Mean Corpuscular Hemoglobin Concent 30 g/dL (31-37) Red Cell Distribution Width 19.7 % (11.5-14.5) Platelet Count 664 x10^3/uL (140-400) Neutrophils (%) (Auto) 83 % (31-73) Lymphocytes (%) (Auto) 8 % (24-48) Monocytes (%) (Auto) 8 % (0-9) Eosinophils (%) (Auto) 0 % (0-3) Basophils (%) (Auto) 0 % (0-3) Neutrophils # (Auto) 9.5 x10^3uL (1.8-7.7) Lymphocytes # (Auto) 0.9 x10^3/uL (1.0-4.8) Monocytes # (Auto) 1.0 x10^3/uL (0.0-1.1) Eosinophils # (Auto) 0.0 x10^3/uL (0.0-0.7) Basophils # (Auto) 0.0 x10^3/uL (0.0-0.2) Sodium Level 138 mmol/L (136-145) Potassium Level 4.1 mmol/L (3.5-5.1) Chloride Level 103 mmol/L (98-107) Carbon Dioxide Level 25 mmol/L (21-32) Anion Gap 10 (6-14) Blood Urea Nitrogen 21 mg/dL (8-26) Creatinine 1.3 mg/dL (0.7-1.3) Estimated GFR (Cockcroft-Gault) 55.6 Glucose Level 139 mg/dL (70-99) Calcium Level 8.0 mg/dL (8.5-10.1) GD-Fzm-T-Type Natriuretic Peptide 5022 pg/mL (0-124) Laboratory Tests Test 01/03/19 17:18 01/03/19 21:16 01/04/19 02:50 01/04/19 07:03 Glucose (Fingerstick) 148 mg/dL (70-99) 143 mg/dL (70-99) 135 mg/dL (70-99) White Blood Count 11.5 x10^3/uL (4.0-11.0) Red Blood Count 3.48 x10^6/uL (4.30-5.70) Hemoglobin 7.4 g/dL (13.0-17.5) Hematocrit 24.8 % (39.0-53.0) Mean Corpuscular Volume 71 fL (79-100) Mean Corpuscular Hemoglobin 21 pg (25-35) Mean Corpuscular Hemoglobin Concent 30 g/dL (31-37) Red Cell Distribution Width 19.7 % (11.5-14.5) Platelet Count 664 x10^3/uL (140-400) Neutrophils (%) (Auto) 83 % (31-73) Lymphocytes (%) (Auto) 8 % (24-48) Monocytes (%) (Auto) 8 % (0-9) Eosinophils (%) (Auto) 0 % (0-3) Basophils (%) (Auto) 0 % (0-3) Neutrophils # (Auto) 9.5 x10^3uL (1.8-7.7) Lymphocytes # (Auto) 0.9 x10^3/uL (1.0-4.8) Monocytes # (Auto) 1.0 x10^3/uL (0.0-1.1) Eosinophils # (Auto) 0.0 x10^3/uL (0.0-0.7) Basophils # (Auto) 0.0 x10^3/uL (0.0-0.2) Sodium Level 138 mmol/L (136-145) Potassium Level 4.1 mmol/L (3.5-5.1) Chloride Level 103 mmol/L (98-107) Carbon Dioxide Level 25 mmol/L (21-32) Anion Gap 10 (6-14) Blood Urea Nitrogen 21 mg/dL (8-26) Creatinine 1.3 mg/dL (0.7-1.3) Estimated GFR (Cockcroft-Gault) 55.6 Glucose Level 139 mg/dL (70-99) Calcium Level 8.0 mg/dL (8.5-10.1) JZ-Cft-L-Type Natriuretic Peptide 5022 pg/mL (0-124) Test 01/04/19 10:24 Glucose (Fingerstick) 222 mg/dL (70-99) Medications Active Scripts Medications Dose Route/Sig Max Daily Dose Days Date Category Hydrocortisone 453.6 Gm Oint...g. TP BID 01/01/19 Reported Actos (Pioglitazone Hcl) 15 Mg Tablet 1 Tab PO DAILY 01/01/19 Reported Lisinopril 40 Mg Tablet 1 Tab PO DAILY 10/21/18 Reported Tylenol (Acetaminophen) 325 Mg Tablet 3 Tab PO PRN Q8HRS PRN 07/07/18 Reported Protonix (Pantoprazole Sodium) 20 Mg Tablet.dr 40 Mg PO DAILY 07/07/18 Reported Metformin Hcl 1,000 Mg Tablet 1,000 Mg PO BIDWMEALS 07/07/18 Reported Atorvastatin Calcium 40 Mg Tablet 1 Tab PO DAILY 07/07/18 Reported Metoprolol Tartrate 25 Mg Tablet 1 Tab PO DAILY 02/28/18 Reported Aspirin 325 Mg Tablet 1 Tab PO DAILY 02/28/18 Reported Impression . FULL NOTE DICTATED WILL CONTINUE THE SAME REPEAT CT IN 8 WEEKS CALDERON SHAW MD Jan 04, 2019 13:19
--- NOTE | 2019-01-04 13:36 | PDOC ---
PROGRESS NOTES Chief Complaint Chief Complaint Multi lobar pneumonia in an nonsmoker-in and in immunocompetent patient Sepsis secondary to above, no organ dysfunction Hemoccult-positive MARIA DEL CARMEN Acute blood loss anemia - precipitous drop of hemoglobin requiring 2 u PRBC Reactive thrombocytosis Leukocytosis in the background of sepsis Diabetes type 2-controlled Chest pain, nonpleuritic-history of CAD and CABG Bilateral knee OA-s/p injections bilateral (01/01/19) History of Present Illness History of Present Illness Inmate admitted for acute blood loss anemia, sepsis from multi-lobar pneumonia. 2: Seen by ortho: He had injections bilateral knees and feels much better. Appreciate ID - multi lobar PNA. Appreciate cardiology seeing the patient- CPM for now - was consulted for CP upon exertion, hx CAD.CABG Worsening shortness of breath and hypoxia overnight. CXR this morning - Decreased aeration. Increased right lung consolidation. Congestive heart failure. Given IV lasix with brisk UOP. His shortness of breath has improved somewhat. No CP A/P: Consult pulm for worsening respiratory status Hemoccult-positive so far no reports of obvious bleeding - on iron per GI. Just seen 10/2018 with EGD and colonoscopy Iron panel consistent with anemia of chronic disease Continue ferrous sulfate H&H again tomorrow Continue antibiotics per ID Vitals Vitals Vital Signs Date Time Temp Pulse Resp B/P (MAP) Pulse Ox O2 Delivery O2 Flow Rate FiO2 01/04/19 12:06 95 Nasal Cannula 5.0 01/04/19 10:55 98.3 91 20 120/66 (84) 98.3 Physical Exam Physical Exam GENERAL: Sitting on the side of the bed, alert, eating HEENT: Oral cavity, pharynx was clear. NECK: Supple with good range of motion. LUNGS: Improved aeration HEART: S1, S2. ABDOMEN: Soft, nontender, nondistended, no guarding, no rebound. EXTREMITIES: No clubbing, cyanosis or gross edema. SKIN: Warm to touch without generalized signs of rash. NEUROLOGIC: Alert and oriented PIV ok General: Alert, Cooperative Heart: Regular rate Lungs: Clear Abdomen: Soft Extremities: Other (both knees show severe flexion contractures although the left is worse. Maximum extension here is 40�. Both knees have diffuse enlargement, and diffuse tenderness, with palpable osteophytes, and mild malalignment, all consistent with osteoarthritis. Quadriceps and hamstring strength are fair. The right knee flexion contracture is about 15�. The right knee has varus malalignment. The left knee is difficult to tell because it is always flexed. The left knee flexion was to 100�. Right knee can flex to 115�.) Skin: No rashes, No breakdown Labs LABS Laboratory Tests Test 01/03/19 17:18 01/03/19 21:16 01/04/19 02:50 01/04/19 07:03 Glucose (Fingerstick) 148 mg/dL (70-99) 143 mg/dL (70-99) 135 mg/dL (70-99) White Blood Count 11.5 x10^3/uL (4.0-11.0) Red Blood Count 3.48 x10^6/uL (4.30-5.70) Hemoglobin 7.4 g/dL (13.0-17.5) Hematocrit 24.8 % (39.0-53.0) Mean Corpuscular Volume 71 fL (79-100) Mean Corpuscular Hemoglobin 21 pg (25-35) Mean Corpuscular Hemoglobin Concent 30 g/dL (31-37) Red Cell Distribution Width 19.7 % (11.5-14.5) Platelet Count 664 x10^3/uL (140-400) Neutrophils (%) (Auto) 83 % (31-73) Lymphocytes (%) (Auto) 8 % (24-48) Monocytes (%) (Auto) 8 % (0-9) Eosinophils (%) (Auto) 0 % (0-3) Basophils (%) (Auto) 0 % (0-3) Neutrophils # (Auto) 9.5 x10^3uL (1.8-7.7) Lymphocytes # (Auto) 0.9 x10^3/uL (1.0-4.8) Monocytes # (Auto) 1.0 x10^3/uL (0.0-1.1) Eosinophils # (Auto) 0.0 x10^3/uL (0.0-0.7) Basophils # (Auto) 0.0 x10^3/uL (0.0-0.2) Sodium Level 138 mmol/L (136-145) Potassium Level 4.1 mmol/L (3.5-5.1) Chloride Level 103 mmol/L (98-107) Carbon Dioxide Level 25 mmol/L (21-32) Anion Gap 10 (6-14) Blood Urea Nitrogen 21 mg/dL (8-26) Creatinine 1.3 mg/dL (0.7-1.3) Estimated GFR (Cockcroft-Gault) 55.6 Glucose Level 139 mg/dL (70-99) Calcium Level 8.0 mg/dL (8.5-10.1) UI-Ufk-C-Type Natriuretic Peptide 5022 pg/mL (0-124) Test 01/04/19 10:24 Glucose (Fingerstick) 222 mg/dL (70-99) Assessment and Plan Assessmemt and Plan Problems Medical Problems: (1) GI bleed Status: Acute Comment Review of Relevant I have reviewed the following items sulema (where applicable) has been applied. Labs Laboratory Tests Test 01/02/19 17:14 01/02/19 20:29 01/03/19 03:55 01/03/19 04:00 Glucose (Fingerstick) 152 mg/dL (70-99) 165 mg/dL (70-99) White Blood Count 14.5 x10^3/uL (4.0-11.0) Red Blood Count 3.39 x10^6/uL (4.30-5.70) Hemoglobin 7.2 g/dL (13.0-17.5) Hematocrit 24.0 % (39.0-53.0) Mean Corpuscular Volume 71 fL (79-100) Mean Corpuscular Hemoglobin 21 pg (25-35) Mean Corpuscular Hemoglobin Concent 30 g/dL (31-37) Red Cell Distribution Width 19.8 % (11.5-14.5) Platelet Count 637 x10^3/uL (140-400) Neutrophils (%) (Auto) 88 % (31-73) Lymphocytes (%) (Auto) 5 % (24-48) Monocytes (%) (Auto) 7 % (0-9) Eosinophils (%) (Auto) 0 % (0-3) Basophils (%) (Auto) 0 % (0-3) Neutrophils # (Auto) 12.7 x10^3uL (1.8-7.7) Lymphocytes # (Auto) 0.8 x10^3/uL (1.0-4.8) Monocytes # (Auto) 1.0 x10^3/uL (0.0-1.1) Eosinophils # (Auto) 0.0 x10^3/uL (0.0-0.7) Basophils # (Auto) 0.0 x10^3/uL (0.0-0.2) Erythrocyte Sedimentation Rate 111 (0-15) Magnesium Level 1.9 mg/dL (1.8-2.4) Test 01/03/19 07:53 01/03/19 09:40 01/03/19 11:57 01/03/19 17:18 Glucose (Fingerstick) 135 mg/dL (70-99) 205 mg/dL (70-99) 148 mg/dL (70-99) Reticulocyte Count (auto) 1.3 % (0.5-2.5) Iron Level 18 ug/dL (65-175) Total Iron Binding Capacity 204 ug/dL (250-450) Iron Saturation 9 % (15-34) Ferritin 239 ng/mL (26-388) Test 01/03/19 21:16 01/04/19 02:50 01/04/19 07:03 01/04/19 10:24 Glucose (Fingerstick) 143 mg/dL (70-99) 135 mg/dL (70-99) 222 mg/dL (70-99) White Blood Count 11.5 x10^3/uL (4.0-11.0) Red Blood Count 3.48 x10^6/uL (4.30-5.70) Hemoglobin 7.4 g/dL (13.0-17.5) Hematocrit 24.8 % (39.0-53.0) Mean Corpuscular Volume 71 fL (79-100) Mean Corpuscular Hemoglobin 21 pg (25-35) Mean Corpuscular Hemoglobin Concent 30 g/dL (31-37) Red Cell Distribution Width 19.7 % (11.5-14.5) Platelet Count 664 x10^3/uL (140-400) Neutrophils (%) (Auto) 83 % (31-73) Lymphocytes (%) (Auto) 8 % (24-48) Monocytes (%) (Auto) 8 % (0-9) Eosinophils (%) (Auto) 0 % (0-3) Basophils (%) (Auto) 0 % (0-3) Neutrophils # (Auto) 9.5 x10^3uL (1.8-7.7) Lymphocytes # (Auto) 0.9 x10^3/uL (1.0-4.8) Monocytes # (Auto) 1.0 x10^3/uL (0.0-1.1) Eosinophils # (Auto) 0.0 x10^3/uL (0.0-0.7) Basophils # (Auto) 0.0 x10^3/uL (0.0-0.2) Sodium Level 138 mmol/L (136-145) Potassium Level 4.1 mmol/L (3.5-5.1) Chloride Level 103 mmol/L (98-107) Carbon Dioxide Level 25 mmol/L (21-32) Anion Gap 10 (6-14) Blood Urea Nitrogen 21 mg/dL (8-26) Creatinine 1.3 mg/dL (0.7-1.3) Estimated GFR (Cockcroft-Gault) 55.6 Glucose Level 139 mg/dL (70-99) Calcium Level 8.0 mg/dL (8.5-10.1) ZR-Azn-U-Type Natriuretic Peptide 5022 pg/mL (0-124) Laboratory Tests Test 01/03/19 17:18 01/03/19 21:16 01/04/19 02:50 01/04/19 07:03 Glucose (Fingerstick) 148 mg/dL (70-99) 143 mg/dL (70-99) 135 mg/dL (70-99) White Blood Count 11.5 x10^3/uL (4.0-11.0) Red Blood Count 3.48 x10^6/uL (4.30-5.70) Hemoglobin 7.4 g/dL (13.0-17.5) Hematocrit 24.8 % (39.0-53.0) Mean Corpuscular Volume 71 fL (79-100) Mean Corpuscular Hemoglobin 21 pg (25-35) Mean Corpuscular Hemoglobin Concent 30 g/dL (31-37) Red Cell Distribution Width 19.7 % (11.5-14.5) Platelet Count 664 x10^3/uL (140-400) Neutrophils (%) (Auto) 83 % (31-73) Lymphocytes (%) (Auto) 8 % (24-48) Monocytes (%) (Auto) 8 % (0-9) Eosinophils (%) (Auto) 0 % (0-3) Basophils (%) (Auto) 0 % (0-3) Neutrophils # (Auto) 9.5 x10^3uL (1.8-7.7) Lymphocytes # (Auto) 0.9 x10^3/uL (1.0-4.8) Monocytes # (Auto) 1.0 x10^3/uL (0.0-1.1) Eosinophils # (Auto) 0.0 x10^3/uL (0.0-0.7) Basophils # (Auto) 0.0 x10^3/uL (0.0-0.2) Sodium Level 138 mmol/L (136-145) Potassium Level 4.1 mmol/L (3.5-5.1) Chloride Level 103 mmol/L (98-107) Carbon Dioxide Level 25 mmol/L (21-32) Anion Gap 10 (6-14) Blood Urea Nitrogen 21 mg/dL (8-26) Creatinine 1.3 mg/dL (0.7-1.3) Estimated GFR (Cockcroft-Gault) 55.6 Glucose Level 139 mg/dL (70-99) Calcium Level 8.0 mg/dL (8.5-10.1) YX-Nby-V-Type Natriuretic Peptide 5022 pg/mL (0-124) Test 01/04/19 10:24 Glucose (Fingerstick) 222 mg/dL (70-99) Microbiology 01/01/19 Blood Culture - Preliminary, Resulted NO GROWTH AFTER 3 DAYS Medications Current Medications Aspirin (Children'S Aspirin) 324 mg 1X ONCE PO Last administered on 01/01/19at 01:00; Start 01/01/19 at 01:00; Stop 01/01/19 at 01:01; Status DC Iohexol (Omnipaque 350 Mg/ml) 75 ml 1X ONCE IV Last administered on 01/01/19at 02:46; Start 01/01/19 at 03:00; Stop 01/01/19 at 03:01; Status DC Info (CONTRAST GIVEN -- Rx MONITORING) 1 each PRN DAILY PRN MC SEE COMMENTS; Start 01/01/19 at 02:45; Stop 01/03/19 at 02:44; Status DC Levofloxacin/ Dextrose 150 ml @ 100 mls/hr 1X ONCE IV Last administered on 01/01/19at 04:31; Start 01/01/19 at 04:00; Stop 01/01/19 at 05:29; Status DC Ondansetron HCl (Zofran) 4 mg PRN Q8HRS PRN IV NAUSEA/VOMITING 1ST CHOICE; Start 01/01/19 at 04:30; Stop 01/01/19 at 08:54; Status DC Acetaminophen (Tylenol) 650 mg PRN Q4HRS PRN PO FEVER; Start 01/01/19 at 04:30; Stop 01/02/19 at 04:29; Status DC Albuterol/ Ipratropium (Duoneb) 3 ml RTQID NEB Last administered on 01/01/19at 20 :42; Start 01/01/19 at 08:00; Stop 01/02/19 at 07:59; Status DC Pantoprazole Sodium (PROTONIX VIAL for IV PUSH) 80 mg 1X ONCE IVP ; Start at 05:00; Stop 01/01/19 at 05:01; Status DC Acetaminophen (Tylenol) 650 mg 1X PRN PRN PO PRE-TRANSFUSION; Start 01/01/19 at 04:45; Stop 01/02/19 at 08:59; Status DC Diphenhydramine HCl (Benadryl Oral Elixir) 12.5 mg 1X PRN PRN PO PRE- TRANSFUSION; Start 01/01/19 at 04:45; Stop 01/04/19 at 12:39; Status DC Linezolid/Dextrose 300 ml @ 300 mls/hr Q12HR IV Last administered on 01/04/19at 09:12; Start 01/01/19 at 09:00 Piperacillin Sod/ Tazobactam Sod 3.375 gm/Sodium Chloride 50 ml @ 100 mls/hr Q6HRS IV Last administered on 01/04/19at 06:34; Start 01/01/19 at 07:45 Doxycycline Hyclate 100 mg/ Dextrose 100 ml @ 50 mls/hr Q12HR IV Last administered on 01/04/19at 09:12; Start 01/01/19 at 09:00 Influenza Virus Vaccine (Afluria Trivalent 1672-7701 Syringe) 0.5 ml ONCE ONCE VAX IM ; Start 01/01/19 at 09:00; Stop 01/01/19 at 09:03; Status DC Ondansetron HCl (Zofran) 4 mg PRN Q6HRS PRN IV NAUSEA/VOMITING 1ST CHOICE; Start 01/01/19 at 09:00 Ketorolac Tromethamine (Toradol 15mg Vial) 15 mg 1X ONCE IM Last administered on 01/01/19 10:01; Start 01/01/19 at 09:00; Stop 01/01/19 at 09:03; Status DC Oxycodone/ Acetaminophen (Percocet 5/325) 1 tab PRN Q4HRS PRN PO SEVERE PAIN Last administered on 01/03/19 21:27; Start 01/01/19 at 09:00 Morphine Sulfate (Morphine Sulfate) 2 mg PRN Q2HR PRN IV MODERATE TO SEVERE PAIN; Start 01/01/19 at 09:00 Pantoprazole Sodium (Protonix) 40 mg DAILYAC PO Last administered on 01/04/19 09:13; Start 01/01/19 at 11:30 Al Hydroxide/Mg Hydroxide (Mylanta Plus Xs) 30 ml PRN Q2HR PRN PO HEARTBURN / GAS; Start 01/01/19 at 09:00 Diphenhydramine HCl (Benadryl) 25 mg PRN QHS PRN PO INSOMNIA Last administered on 01/03/19 21:26; Start 01/01/19 at 09:00 Nicotine (Nicoderm Cq 21mg) 1 patch PRN DAILY PRN TD SMOKING CESSATION; Start 01/01/19 at 09:00 Acetaminophen (Tylenol) 975 mg PRN Q8HRS PRN PO MILD PAIN; Start 01/01/19 at 09: 00 Atorvastatin Calcium (Lipitor) 40 mg QHS PO Last administered on 01/03/19 21:26 ; Start 01/01/19 at 21:00 Lisinopril (Prinivil) 40 mg DAILY PO Last administered on 01/04/19 09:11; Start 01/01/19 at 09:00 Metoprolol Tartrate (Lopressor) 25 mg DAILY PO Last administered on 01/04/19 09 :10; Start 01/01/19 at 09:00 Metformin HCl (Glucophage) 1,000 mg BIDWMEALS PO Last administered on 01/04/19 09:09; Start 01/01/19 at 17:00 Pioglitazone HCl (Actos) 15 mg DAILY PO Last administered on 01/04/19 09:10; Start 01/01/19 at 09:00 Insulin Human Lispro (HumaLOG) 0-9 UNITS TIDWMEALS SQ Last administered on 12:46; Start 01/01/19 at 12:00 Dextrose (Dextrose 50%-Water Syringe) 12.5 gm PRN Q15MIN PRN IV SEE COMMENTS; Start 01/01/19 at 09:00 Ferrous Sulfate (Iron Oral Solution) 300 mg BIDWMEALS PO Last administered on 08:50; Start 01/01/19 at 10:00; Stop 01/03/19 at 09:59; Status DC Polyethylene Glycol (miraLAX PACKET) 17 gm PRN DAILY PRN PO CONSTIPATION; Start 01/01/19 at 10:15 Cyanocobalamin (Vitamin B-12) 1,000 mcg DAILY PO Last administered on 01/04/19 09:09; Start 01/01/19 at 10:30 Influenza Virus Vaccine (Afluria Trivalent [id number] Syringe) 0.5 ml ONCE ONCE VAX IM ; Start 01/02/19 at 09:00; Stop 01/02/19 at 09:01; Status DC Bupivacaine HCl (Sensorcaine-Mpf 0.25%) 10 ml 1X ONCE IJ Last administered on 01/01/19 17:12; Start 01/01/19 at 17:00; Stop 01/01/19 at 17:01; Status DC Methylprednisolone Acetate (DEPO-Medrol 80MG VIAL) 160 mg 1X ONCE INT ART Last administered on 01/01/19 17:10; Start 01/01/19 at 17:00; Stop 01/01/19 at 17: 01; Status DC Lactobacillus Rhamnosus (Culturelle) 1 cap BID PO Last administered on 09:09; Start 01/02/19 at 09:00 Albuterol/ Ipratropium (Duoneb) 3 ml RTQID NEB Last administered on 01/04/19 12 :06; Start 01/02/19 at 12:00 Ferrous Sulfate (Feosol) 325 mg BIDWMEALS PO Last administered on 2/4/19at 09: 09; Start 01/03/19 at 17:00 Furosemide (Lasix) 40 mg 1X ONCE IVP Last administered on 01/04/19at 09:11; Start 01/04/19 at 09:00; Stop 01/04/19 at 09:01; Status DC Active Scripts Active Reported Hydrocortisone 453.6 Gm Oint...g. TP BID Actos (Pioglitazone Hcl) 15 Mg Tablet 1 Tab PO DAILY Lisinopril 40 Mg Tablet 1 Tab PO DAILY Tylenol (Acetaminophen) 325 Mg Tablet 3 Tab PO PRN Q8HRS PRN Protonix (Pantoprazole Sodium) 20 Mg Tablet.dr 40 Mg PO DAILY Metformin Hcl 1,000 Mg Tablet 1,000 Mg PO BIDWMEALS Atorvastatin Calcium 40 Mg Tablet 1 Tab PO DAILY Metoprolol Tartrate 25 Mg Tablet 1 Tab PO DAILY Aspirin 325 Mg Tablet 1 Tab PO DAILY Vitals/I & O Vital Sign - Last 24 Hours 01/03/19 01/03/19 01/03/19 01/03/19 14:37 15:26 19:30 19:51 Temp 98.0 97.5 98.0 97.5 Pulse 98 100 Resp 20 21 B/P (MAP) 105/59 (74) 163/90 (114) Pulse Ox 94 94 88 O2 Delivery Nasal Cannula Nasal Cannula Nasal Cannula Nasal Cannula O2 Flow Rate 4.0 3.0 4.0 3.0 01/03/19 01/03/19 01/03/19 01/04/19 21:04 21:27 23:41 03:48 Temp 97.4 97.8 97.4 97.8 Pulse 94 90 Resp 20 20 18 B/P (MAP) 147/77 (100) 136/65 (88) Pulse Ox 96 87 97 O2 Delivery Nasal Cannula Nasal Cannula Nasal Cannula Nasal Cannula O2 Flow Rate 3.0 4.0 4.0 5.0 01/04/19 01/04/19 01/04/19 01/04/19 07:39 07:40 07:43 09:10 Temp 97.8 97.8 Pulse 88 88 Resp 18 B/P (MAP) 132/56 (81) 132/56 Pulse Ox 91 98 O2 Delivery Nasal Cannula Nasal Cannula Nasal Cannula O2 Flow Rate 5.0 5.0 5.0 01/04/19 01/04/19 01/04/19 09:11 10:55 12:06 Temp 98.3 98.3 Pulse 88 91 Resp 20 B/P (MAP) 132/56 120/66 (84) Pulse Ox 99 95 O2 Delivery Nasal Cannula Nasal Cannula O2 Flow Rate 4.0 5.0 Intake and Output 01/03/19 01/03/19 01/04/19 15:01 23:01 07:01 Intake Total 280 ml 400 ml 400 ml Output Total 1800 ml 500 ml Balance 280 ml -1400 ml -100 ml ADENIKE CASILLAS MD Jan 04, 2019 13:36
[2019-01-04 15:10] VITALS: BP 146/77
[2019-01-04 15:20] LABS: GLIA IGA 6 units (0-19); GLIA IGG 2 units (0-19); TRANSGLUTAMINASE IGA AB <2 U/mL (0-3); TRANSGLUTAMINASE IGG AB <2 U/mL (0-5)
--- NOTE | 2019-01-04 18:30 | NUR ---
Patient received to room 526.
[2019-01-04 19:00] VITALS: BP 134/68
--- NOTE | 2019-01-04 19:22 | CONS ---
DATE OF CONSULTATION: 01/03/2019 ATTENDING PHYSICIAN: Dr. Bronson. REASON FOR CONSULTATION: The patient seen in pulmonary consultation at the request of Dr. Burnett for abnormal CT chest and chest x-ray revealing extensive right-sided infiltrate. HISTORY OF PRESENT ILLNESS: The patient is a 63-year-old that is currently incarcerated at [facility], presented with increasing shortness of breath. He had a cough, mostly nonproductive, at times he brought up some mucus mixed in with blood. No ward hemoptysis. He quit tobacco in 1999. He normally does not wear oxygen at home. He has a history of diabetes and previous diverticulitis with perforation in addition to coronary artery disease. He came in with the above. He denies fever, chills. No nausea, vomiting. He was seen in the Emergency Room and had a white count of 12,000, his hemoglobin was 6. He underwent a chest x-ray and CT. CT revealed no evidence of pulmonary emboli. He had extensive pulmonary opacities in the right lung. He is currently on antibiotics. He has been seen by Infectious Disease Service. He is on Zyvox, Zosyn and doxycycline. PAST MEDICAL HISTORY: Otherwise remarkable for recent diverticulitis with perforation, underwent surgical intervention. He has a history of coronary artery disease status post coronary artery bypass grafting, hypertension, diabetes. SOCIAL HISTORY: He currently resides at [facility]. FAMILY HISTORY: Noncontributory. PAST SURGICAL HISTORY: As above. ALLERGIES: No known drug allergies. REVIEW OF SYSTEMS: As indicated above, otherwise, a 10-point system was reviewed and negative. CURRENT MEDICATIONS: List was reviewed. PHYSICAL EXAMINATION: VITAL SIGNS: Stable. He has been afebrile. HEENT: Eyes, the sclerae were nonicteric. NECK: Jugular venous distention was not elevated. No lymphadenopathy. CHEST: Full expansion. LUNGS: He had rales in the right. No wheezes. CARDIOVASCULAR: Regular rate and rhythm with S1, S2, no S3. ABDOMEN: Soft, nontender, nondistended. EXTREMITIES: No clubbing, cyanosis or edema. NEUROLOGIC: The patient was awake, alert, following commands. A detailed neuro exam was not performed. LABORATORY DATA: Reviewed. White count was 11,000. Hemoglobin and hematocrit were noted. Electrolytes were noted. BUN and creatinine were noted. IMPRESSION: 1. Abnormal CT revealing extensive right-sided infiltrate compatible with pneumonia. 2. Suspect Gram-negative, possibly Gram-positive pneumonia. 3. Respiratory failure secondary to above. 4. History of diverticulitis with questionable gastrointestinal bleed. PLAN: 1. Continue current triple antibiotics. 2. Follow ID input. 3. Repeat CT chest dated 2 months. 4. Will need oxygen supplementation at the [facility]. I do appreciate the privilege in sharing in the patient's care. CALDERON SHAW MD DR: [email or web address] JOB#: [id number] / [id number]
[2019-01-04] MEDS: diphenhydrAMINE HCL 25 MG CAPSULE PO PRN (20:36)
[2019-01-04] MEDS: ATORVASTATIN CALCIUM 40 MG TABLET. PO SCH (20:36)
[2019-01-04] MEDS: oxyCODONE/APAP 5/325 1 TAB TABLET PO PRN (20:37)
[2019-01-04 23:00] VITALS: BP 129/73
[2019-01-05] VITALS (8 sets, daily range): BP systolic 116–158; BP diastolic 63–83
[2019-01-05 05:11] LABS: BASO % 0 % (0-3); EOS # 0.1 x10^3/uL (0.0-0.7); EOS % 1 % (0-3); HEMATOCRIT 27.4 % (39.0-53.0); HEMOGLOBIN 8.2 g/dL (13.0-17.5); LYMPH % 8 % (24-48); MEAN CORPUSCULAR HEMOGLOBIN 22 pg (25-35); MEAN CORPUSCULAR HGB CONC 30 g/dL (31-37); MEAN CORPUSCULAR VOLUME 72 fL (79-100); MONO # 0.6 x10^3/uL (0.0-1.1); MONO % 5 % (0-9); NEUT # 9.9 x10^3uL (1.8-7.7); NEUT % 85 % (31-73); PLATELET COUNT 691 x10^3/uL (140-400); RED CELL DISTRIBUTION WIDTH 20.2 % (11.5-14.5); WHITE BLOOD COUNT 11.7 x10^3/uL (4.0-11.0)
[2019-01-05] MEDS: PIPERACILLIN/TAZOBACTAM 3.375 GM in IV NORMAL SALINE 50ML 50 ML IV SCH (05:34)
[2019-01-05] MEDS: IPRATRPIUM/ALBUTEROL 0.5/2.5MG 3 ML NEBU. NEB SCH ×4 (07:30→19:46)
[2019-01-05] MEDS: INSULIN LISPRO 300 UNITS/3 ML INSULN.PEN. SQ SCH ×3 (08:00→16:18)
[2019-01-05] MEDS: FERROUS SULFATE 325 MG TABLET. PO SCH ×2 (08:00→16:26)
[2019-01-05] MEDS: PANTOPRAZOLE 40 MG TABLET.DR. PO SCH (08:04)
[2019-01-05] MEDS: metFORMIN 500 MG TABLET PO SCH ×2 (08:06→16:28)
[2019-01-05] MEDS: LACTOBACILLUS RHAMNOSUS GG 1 CAPSULE. PO SCH ×2 (09:08→20:44)
[2019-01-05] MEDS: PIOGLITAZONE 15 MG TABLET. PO SCH (09:08)
[2019-01-05] MEDS: METOPROLOL TART IMMED RELEASE 25 MG TABLET. PO SCH (09:09)
[2019-01-05] MEDS: LISINOPRIL 20 MG TABLET PO SCH (09:12)
[2019-01-05] MEDS: CYANOCOBALAMIN (VITAMIN B-12) 1,000 MCG TABLET. PO SCH (09:17)
--- NOTE | 2019-01-05 09:56 | PDOC ---
Infectious Disease Note Subjective Subjective Comfortable, denies pain c/o some SOA with exertion Regular diet now No fevers/chills Denies N/V/D/CP Vital Sign Vital Signs Vital Signs Date Time Temp Pulse Resp B/P (MAP) Pulse Ox O2 Delivery O2 Flow Rate FiO2 01/05/19 09:12 88 158/83 01/05/19 07:30 94 Nasal Cannula 4.0 01/05/19 07:00 98.4 18 98.4 Physical Exam PHYSICAL EXAM GENERAL: Sitting on the side of the bed, alert, eating HEENT: Oral cavity, pharynx was clear. NECK: Supple with good range of motion. LUNGS: Improved aeration HEART: S1, S2. ABDOMEN: Soft, nontender, nondistended, no guarding, no rebound. EXTREMITIES: No clubbing, cyanosis or gross edema. SKIN: Warm to touch without generalized signs of rash. NEUROLOGIC: Alert and oriented PIV ok Labs Lab Laboratory Tests Test 01/04/19 10:24 01/04/19 14:18 01/04/19 18:35 01/04/19 21:10 Glucose (Fingerstick) 222 mg/dL (70-99) 144 mg/dL (70-99) 140 mg/dL (70-99) 198 mg/dL (70-99) Test 01/05/19 04:20 01/05/19 07:31 White Blood Count 11.7 x10^3/uL (4.0-11.0) Red Blood Count 3.80 x10^6/uL (4.30-5.70) Hemoglobin 8.2 g/dL (13.0-17.5) Hematocrit 27.4 % (39.0-53.0) Mean Corpuscular Volume 72 fL (79-100) Mean Corpuscular Hemoglobin 22 pg (25-35) Mean Corpuscular Hemoglobin Concent 30 g/dL (31-37) Red Cell Distribution Width 20.2 % (11.5-14.5) Platelet Count 691 x10^3/uL (140-400) Neutrophils (%) (Auto) 85 % (31-73) Lymphocytes (%) (Auto) 8 % (24-48) Monocytes (%) (Auto) 5 % (0-9) Eosinophils (%) (Auto) 1 % (0-3) Basophils (%) (Auto) 0 % (0-3) Neutrophils # (Auto) 9.9 x10^3uL (1.8-7.7) Lymphocytes # (Auto) 1.0 x10^3/uL (1.0-4.8) Monocytes # (Auto) 0.6 x10^3/uL (0.0-1.1) Eosinophils # (Auto) 0.1 x10^3/uL (0.0-0.7) Basophils # (Auto) 0.0 x10^3/uL (0.0-0.2) Glucose (Fingerstick) 136 mg/dL (70-99) Micro Microbiology 01/01/19 Blood Culture - Preliminary, Resulted NO GROWTH AFTER 3 DAYS Objective Assessment Fever - better Leukocytosis - better, now up post steroid injection and PRBCs Community-acquired pneumonia. Anemia s/p PRBCs Questionable gastrointestinal bleed with history of diverticulitis, and occult positive. Diabetes. Arthritic knees s/p steroid injection, 01/01 CHF Plan Plan of Care Zyvox, Zosyn and Doxy ,, change to po augmentin Strep/Legionella antigens neg GI following F/u labs and cults Supportive care ISRAEL OLSON MD Jan 05, 2019 09:55
--- NOTE | 2019-01-05 10:46 | PDOC ---
PULMONARY PROGRESS NOTES Subjective NO SOA/ COUGH BETTER Vitals Vital Signs Date Time Temp Pulse Resp B/P (MAP) Pulse Ox O2 Delivery O2 Flow Rate FiO2 01/05/19 09:12 88 158/83 01/05/19 07:30 94 Nasal Cannula 4.0 01/05/19 07:00 98.4 18 98.4 General: Alert, No acute distress Lungs: Other (decrease bs right) Neuro Exam: Alert Extremities: Other (1+edema) Labs Laboratory Tests Test 01/03/19 11:57 01/03/19 17:18 01/03/19 21:16 01/04/19 02:50 Glucose (Fingerstick) 205 mg/dL (70-99) 148 mg/dL (70-99) 143 mg/dL (70-99) White Blood Count 11.5 x10^3/uL (4.0-11.0) Red Blood Count 3.48 x10^6/uL (4.30-5.70) Hemoglobin 7.4 g/dL (13.0-17.5) Hematocrit 24.8 % (39.0-53.0) Mean Corpuscular Volume 71 fL (79-100) Mean Corpuscular Hemoglobin 21 pg (25-35) Mean Corpuscular Hemoglobin Concent 30 g/dL (31-37) Red Cell Distribution Width 19.7 % (11.5-14.5) Platelet Count 664 x10^3/uL (140-400) Neutrophils (%) (Auto) 83 % (31-73) Lymphocytes (%) (Auto) 8 % (24-48) Monocytes (%) (Auto) 8 % (0-9) Eosinophils (%) (Auto) 0 % (0-3) Basophils (%) (Auto) 0 % (0-3) Neutrophils # (Auto) 9.5 x10^3uL (1.8-7.7) Lymphocytes # (Auto) 0.9 x10^3/uL (1.0-4.8) Monocytes # (Auto) 1.0 x10^3/uL (0.0-1.1) Eosinophils # (Auto) 0.0 x10^3/uL (0.0-0.7) Basophils # (Auto) 0.0 x10^3/uL (0.0-0.2) Sodium Level 138 mmol/L (136-145) Potassium Level 4.1 mmol/L (3.5-5.1) Chloride Level 103 mmol/L (98-107) Carbon Dioxide Level 25 mmol/L (21-32) Anion Gap 10 (6-14) Blood Urea Nitrogen 21 mg/dL (8-26) Creatinine 1.3 mg/dL (0.7-1.3) Estimated GFR (Cockcroft-Gault) 55.6 Glucose Level 139 mg/dL (70-99) Calcium Level 8.0 mg/dL (8.5-10.1) EX-Jyx-I-Type Natriuretic Peptide 5022 pg/mL (0-124) Test 01/04/19 07:03 01/04/19 10:24 01/04/19 14:18 01/04/19 18:35 Glucose (Fingerstick) 135 mg/dL (70-99) 222 mg/dL (70-99) 144 mg/dL (70-99) 140 mg/dL (70-99) Test 01/04/19 21:10 01/05/19 04:20 01/05/19 07:31 Glucose (Fingerstick) 198 mg/dL (70-99) 136 mg/dL (70-99) White Blood Count 11.7 x10^3/uL (4.0-11.0) Red Blood Count 3.80 x10^6/uL (4.30-5.70) Hemoglobin 8.2 g/dL (13.0-17.5) Hematocrit 27.4 % (39.0-53.0) Mean Corpuscular Volume 72 fL (79-100) Mean Corpuscular Hemoglobin 22 pg (25-35) Mean Corpuscular Hemoglobin Concent 30 g/dL (31-37) Red Cell Distribution Width 20.2 % (11.5-14.5) Platelet Count 691 x10^3/uL (140-400) Neutrophils (%) (Auto) 85 % (31-73) Lymphocytes (%) (Auto) 8 % (24-48) Monocytes (%) (Auto) 5 % (0-9) Eosinophils (%) (Auto) 1 % (0-3) Basophils (%) (Auto) 0 % (0-3) Neutrophils # (Auto) 9.9 x10^3uL (1.8-7.7) Lymphocytes # (Auto) 1.0 x10^3/uL (1.0-4.8) Monocytes # (Auto) 0.6 x10^3/uL (0.0-1.1) Eosinophils # (Auto) 0.1 x10^3/uL (0.0-0.7) Basophils # (Auto) 0.0 x10^3/uL (0.0-0.2) Laboratory Tests Test 01/04/19 14:18 01/04/19 18:35 01/04/19 21:10 01/05/19 04:20 Glucose (Fingerstick) 144 mg/dL (70-99) 140 mg/dL (70-99) 198 mg/dL (70-99) White Blood Count 11.7 x10^3/uL (4.0-11.0) Red Blood Count 3.80 x10^6/uL (4.30-5.70) Hemoglobin 8.2 g/dL (13.0-17.5) Hematocrit 27.4 % (39.0-53.0) Mean Corpuscular Volume 72 fL (79-100) Mean Corpuscular Hemoglobin 22 pg (25-35) Mean Corpuscular Hemoglobin Concent 30 g/dL (31-37) Red Cell Distribution Width 20.2 % (11.5-14.5) Platelet Count 691 x10^3/uL (140-400) Neutrophils (%) (Auto) 85 % (31-73) Lymphocytes (%) (Auto) 8 % (24-48) Monocytes (%) (Auto) 5 % (0-9) Eosinophils (%) (Auto) 1 % (0-3) Basophils (%) (Auto) 0 % (0-3) Neutrophils # (Auto) 9.9 x10^3uL (1.8-7.7) Lymphocytes # (Auto) 1.0 x10^3/uL (1.0-4.8) Monocytes # (Auto) 0.6 x10^3/uL (0.0-1.1) Eosinophils # (Auto) 0.1 x10^3/uL (0.0-0.7) Basophils # (Auto) 0.0 x10^3/uL (0.0-0.2) Test 01/05/19 07:31 Glucose (Fingerstick) 136 mg/dL (70-99) Medications Active Scripts Medications Dose Route/Sig Max Daily Dose Days Date Category Hydrocortisone 453.6 Gm Oint...g. TP BID 01/01/19 Reported Actos (Pioglitazone Hcl) 15 Mg Tablet 1 Tab PO DAILY 01/01/19 Reported Lisinopril 40 Mg Tablet 1 Tab PO DAILY 10/21/18 Reported Tylenol (Acetaminophen) 325 Mg Tablet 3 Tab PO PRN Q8HRS PRN 07/07/18 Reported Protonix (Pantoprazole Sodium) 20 Mg Tablet.dr 40 Mg PO DAILY 07/07/18 Reported Metformin Hcl 1,000 Mg Tablet 1,000 Mg PO BIDWMEALS 07/07/18 Reported Atorvastatin Calcium 40 Mg Tablet 1 Tab PO DAILY 07/07/18 Reported Metoprolol Tartrate 25 Mg Tablet 1 Tab PO DAILY 02/28/18 Reported Aspirin 325 Mg Tablet 1 Tab PO DAILY 02/28/18 Reported Impression . 1. Abnormal CT revealing extensive right-sided infiltrate compatible with pneumonia/ cannot exclude superimposed CHF/ increase pro-BNP 2. Suspect Gram-negative, possibly Gram-positive pneumonia. 3. Respiratory failure secondary to above. 4. History of diverticulitis with questionable gastrointestinal bleed. 5. 35 years of tobacco use/ suspect COPD Plan . 1. antibiotics changed to PO per ID 2. try lasix, check pro-calcitonin 3. Repeat CT chest in 2 months. 4. Will need oxygen supplementation at the [facility]. LACY BRUNER MD Jan 05, 2019 10:46
--- NOTE | 2019-01-05 10:53 | PDOC ---
Objective: Vital Signs: Vital Signs Date Time Temp Pulse Resp B/P (MAP) Pulse Ox O2 Delivery O2 Flow Rate FiO2 01/05/19 09:12 88 158/83 01/05/19 08:00 Nasal Cannula 4.0 01/05/19 07:30 94 01/05/19 07:00 98.4 18 98.4 Labs: Laboratory Tests Test 01/04/19 14:18 01/04/19 18:35 01/04/19 21:10 01/05/19 04:20 Glucose (Fingerstick) 144 mg/dL 140 mg/dL 198 mg/dL White Blood Count 11.7 x10^3/uL Red Blood Count 3.80 x10^6/uL Hemoglobin 8.2 g/dL Hematocrit 27.4 % Mean Corpuscular Volume 72 fL Mean Corpuscular Hemoglobin 22 pg Mean Corpuscular Hemoglobin Concent 30 g/dL Red Cell Distribution Width 20.2 % Platelet Count 691 x10^3/uL Neutrophils (%) (Auto) 85 % Lymphocytes (%) (Auto) 8 % Monocytes (%) (Auto) 5 % Eosinophils (%) (Auto) 1 % Basophils (%) (Auto) 0 % Neutrophils # (Auto) 9.9 x10^3uL Lymphocytes # (Auto) 1.0 x10^3/uL Monocytes # (Auto) 0.6 x10^3/uL Eosinophils # (Auto) 0.1 x10^3/uL Basophils # (Auto) 0.0 x10^3/uL Test 01/05/19 07:31 Glucose (Fingerstick) 136 mg/dL BLOOD CULTURE Preliminary NO GROWTH AFTER 4 DAYS PE: GEN: NAD LUNGS: NC NEURO/PSYCH: sleeping, not awakened A/P: CAP, CHF MARIA DEL CARMEN - stable -on iron and B12 -h/o GERD on PPI -had EGD and colonoscopy 10/2018 -Celiac serology ok -h/o diverticular disease/perf +fecal occult, h/o hemorrhoids -- Other per Dr. Marcos. PRASANTH LAGOS Jan 05, 2019 10:53
[2019-01-05] MEDS ORDERED: FUROSEMIDE 20 MG/2 ML VIAL. IVP ONE (11:30)
--- NOTE | 2019-01-05 14:51 | PDOC ---
PROGRESS NOTES Chief Complaint Chief Complaint Multi lobar pneumonia in an nonsmoker-in and in immunocompetent patient Sepsis secondary to above, no organ dysfunction Hemoccult-positive MARIA DEL CARMEN Acute blood loss anemia - precipitous drop of hemoglobin requiring 2 u PRBC Reactive thrombocytosis Leukocytosis in the background of sepsis Diabetes type 2-controlled Chest pain, nonpleuritic-history of CAD and CABG Bilateral knee OA-s/p injections bilateral (01/01/19) History of Present Illness History of Present Illness Inmate admitted for acute blood loss anemia, sepsis from multi-lobar pneumonia. 01/03: Seen by ortho: He had injections bilateral knees and feels much better. Appreciate ID - multi lobar PNA. Appreciate cardiology seeing the patient- CPM for now - was consulted for CP upon exertion, hx CAD.CABG A/P: apprec pulm and ID. abx changed to PO. Hemoccult-positive so far no reports of obvious bleeding - on iron per GI. Just seen 10/2018 with EGD and colonoscopy Iron panel consistent with anemia of chronic disease Continue ferrous sulfate follow H and H Continue antibiotics per ID, changed to augmentin Vitals Vitals Vital Signs Date Time Temp Pulse Resp B/P (MAP) Pulse Ox O2 Delivery O2 Flow Rate FiO2 01/05/19 11:39 94 Nasal Cannula 4.0 01/05/19 11:04 98.1 88 20 128/75 (92) 98.1 Physical Exam Physical Exam GENERAL: Sitting on the side of the bed, alert, eating HEENT: Oral cavity, pharynx was clear. NECK: Supple with good range of motion. LUNGS: Improved aeration HEART: S1, S2. ABDOMEN: Soft, nontender, nondistended, no guarding, no rebound. EXTREMITIES: No clubbing, cyanosis or gross edema. SKIN: Warm to touch without generalized signs of rash. NEUROLOGIC: Alert and oriented PIV ok General: Alert, Cooperative Heart: Regular rate Lungs: Other (decrease bs right) Abdomen: Soft Extremities: Other (both knees show severe flexion contractures although the left is worse. Maximum extension here is 40�. Both knees have diffuse enlargement, and diffuse tenderness, with palpable osteophytes, and mild malalignment, all consistent with osteoarthritis. Quadriceps and hamstring strength are fair. The right knee flexion contracture is about 15�. The right knee has varus malalignment. The left knee is difficult to tell because it is always flexed. The left knee flexion was to 100�. Right knee can flex to 115�.) Skin: No rashes, No breakdown Labs LABS Laboratory Tests Test 01/04/19 18:35 01/04/19 21:10 01/05/19 04:20 01/05/19 07:31 Glucose (Fingerstick) 140 mg/dL (70-99) 198 mg/dL (70-99) 136 mg/dL (70-99) White Blood Count 11.7 x10^3/uL (4.0-11.0) Red Blood Count 3.80 x10^6/uL (4.30-5.70) Hemoglobin 8.2 g/dL (13.0-17.5) Hematocrit 27.4 % (39.0-53.0) Mean Corpuscular Volume 72 fL (79-100) Mean Corpuscular Hemoglobin 22 pg (25-35) Mean Corpuscular Hemoglobin Concent 30 g/dL (31-37) Red Cell Distribution Width 20.2 % (11.5-14.5) Platelet Count 691 x10^3/uL (140-400) Neutrophils (%) (Auto) 85 % (31-73) Lymphocytes (%) (Auto) 8 % (24-48) Monocytes (%) (Auto) 5 % (0-9) Eosinophils (%) (Auto) 1 % (0-3) Basophils (%) (Auto) 0 % (0-3) Neutrophils # (Auto) 9.9 x10^3uL (1.8-7.7) Lymphocytes # (Auto) 1.0 x10^3/uL (1.0-4.8) Monocytes # (Auto) 0.6 x10^3/uL (0.0-1.1) Eosinophils # (Auto) 0.1 x10^3/uL (0.0-0.7) Basophils # (Auto) 0.0 x10^3/uL (0.0-0.2) Procalcitonin 0.21 ng/mL (0.00-0.10) Test 01/05/19 11:22 Glucose (Fingerstick) 145 mg/dL (70-99) Assessment and Plan Assessmemt and Plan Problems Medical Problems: (1) GI bleed Status: Acute Comment Review of Relevant I have reviewed the following items sulema (where applicable) has been applied. Labs Laboratory Tests Test 01/03/19 17:18 01/03/19 21:16 01/04/19 02:50 01/04/19 07:03 Glucose (Fingerstick) 148 mg/dL (70-99) 143 mg/dL (70-99) 135 mg/dL (70-99) White Blood Count 11.5 x10^3/uL (4.0-11.0) Red Blood Count 3.48 x10^6/uL (4.30-5.70) Hemoglobin 7.4 g/dL (13.0-17.5) Hematocrit 24.8 % (39.0-53.0) Mean Corpuscular Volume 71 fL (79-100) Mean Corpuscular Hemoglobin 21 pg (25-35) Mean Corpuscular Hemoglobin Concent 30 g/dL (31-37) Red Cell Distribution Width 19.7 % (11.5-14.5) Platelet Count 664 x10^3/uL (140-400) Neutrophils (%) (Auto) 83 % (31-73) Lymphocytes (%) (Auto) 8 % (24-48) Monocytes (%) (Auto) 8 % (0-9) Eosinophils (%) (Auto) 0 % (0-3) Basophils (%) (Auto) 0 % (0-3) Neutrophils # (Auto) 9.5 x10^3uL (1.8-7.7) Lymphocytes # (Auto) 0.9 x10^3/uL (1.0-4.8) Monocytes # (Auto) 1.0 x10^3/uL (0.0-1.1) Eosinophils # (Auto) 0.0 x10^3/uL (0.0-0.7) Basophils # (Auto) 0.0 x10^3/uL (0.0-0.2) Sodium Level 138 mmol/L (136-145) Potassium Level 4.1 mmol/L (3.5-5.1) Chloride Level 103 mmol/L (98-107) Carbon Dioxide Level 25 mmol/L (21-32) Anion Gap 10 (6-14) Blood Urea Nitrogen 21 mg/dL (8-26) Creatinine 1.3 mg/dL (0.7-1.3) Estimated GFR (Cockcroft-Gault) 55.6 Glucose Level 139 mg/dL (70-99) Calcium Level 8.0 mg/dL (8.5-10.1) AF-Suo-U-Type Natriuretic Peptide 5022 pg/mL (0-124) Test 01/04/19 10:24 01/04/19 14:18 01/04/19 18:35 01/04/19 21:10 Glucose (Fingerstick) 222 mg/dL (70-99) 144 mg/dL (70-99) 140 mg/dL (70-99) 198 mg/dL (70-99) Test 01/05/19 04:20 01/05/19 07:31 01/05/19 11:22 White Blood Count 11.7 x10^3/uL (4.0-11.0) Red Blood Count 3.80 x10^6/uL (4.30-5.70) Hemoglobin 8.2 g/dL (13.0-17.5) Hematocrit 27.4 % (39.0-53.0) Mean Corpuscular Volume 72 fL (79-100) Mean Corpuscular Hemoglobin 22 pg (25-35) Mean Corpuscular Hemoglobin Concent 30 g/dL (31-37) Red Cell Distribution Width 20.2 % (11.5-14.5) Platelet Count 691 x10^3/uL (140-400) Neutrophils (%) (Auto) 85 % (31-73) Lymphocytes (%) (Auto) 8 % (24-48) Monocytes (%) (Auto) 5 % (0-9) Eosinophils (%) (Auto) 1 % (0-3) Basophils (%) (Auto) 0 % (0-3) Neutrophils # (Auto) 9.9 x10^3uL (1.8-7.7) Lymphocytes # (Auto) 1.0 x10^3/uL (1.0-4.8) Monocytes # (Auto) 0.6 x10^3/uL (0.0-1.1) Eosinophils # (Auto) 0.1 x10^3/uL (0.0-0.7) Basophils # (Auto) 0.0 x10^3/uL (0.0-0.2) Procalcitonin 0.21 ng/mL (0.00-0.10) Glucose (Fingerstick) 136 mg/dL (70-99) 145 mg/dL (70-99) Laboratory Tests Test 01/04/19 18:35 01/04/19 21:10 01/05/19 04:20 01/05/19 07:31 Glucose (Fingerstick) 140 mg/dL (70-99) 198 mg/dL (70-99) 136 mg/dL (70-99) White Blood Count 11.7 x10^3/uL (4.0-11.0) Red Blood Count 3.80 x10^6/uL (4.30-5.70) Hemoglobin 8.2 g/dL (13.0-17.5) Hematocrit 27.4 % (39.0-53.0) Mean Corpuscular Volume 72 fL (79-100) Mean Corpuscular Hemoglobin 22 pg (25-35) Mean Corpuscular Hemoglobin Concent 30 g/dL (31-37) Red Cell Distribution Width 20.2 % (11.5-14.5) Platelet Count 691 x10^3/uL (140-400) Neutrophils (%) (Auto) 85 % (31-73) Lymphocytes (%) (Auto) 8 % (24-48) Monocytes (%) (Auto) 5 % (0-9) Eosinophils (%) (Auto) 1 % (0-3) Basophils (%) (Auto) 0 % (0-3) Neutrophils # (Auto) 9.9 x10^3uL (1.8-7.7) Lymphocytes # (Auto) 1.0 x10^3/uL (1.0-4.8) Monocytes # (Auto) 0.6 x10^3/uL (0.0-1.1) Eosinophils # (Auto) 0.1 x10^3/uL (0.0-0.7) Basophils # (Auto) 0.0 x10^3/uL (0.0-0.2) Procalcitonin 0.21 ng/mL (0.00-0.10) Test 01/05/19 11:22 Glucose (Fingerstick) 145 mg/dL (70-99) Microbiology 01/01/19 Blood Culture - Preliminary, Resulted NO GROWTH AFTER 4 DAYS Medications Current Medications Aspirin (Children'S Aspirin) 324 mg 1X ONCE PO Last administered on 01/01/19at 01:00; Start 01/01/19 at 01:00; Stop 01/01/19 at 01:01; Status DC Iohexol (Omnipaque 350 Mg/ml) 75 ml 1X ONCE IV Last administered on 01/01/19at 02:46; Start 01/01/19 at 03:00; Stop 01/01/19 at 03:01; Status DC Info (CONTRAST GIVEN -- Rx MONITORING) 1 each PRN DAILY PRN MC SEE COMMENTS; Start 01/01/19 at 02:45; Stop 01/03/19 at 02:44; Status DC Levofloxacin/ Dextrose 150 ml @ 100 mls/hr 1X ONCE IV Last administered on 01/01/19at 04:31; Start 01/01/19 at 04:00; Stop 01/01/19 at 05:29; Status DC Ondansetron HCl (Zofran) 4 mg PRN Q8HRS PRN IV NAUSEA/VOMITING 1ST CHOICE; Start 01/01/19 at 04:30; Stop 01/01/19 at 08:54; Status DC Acetaminophen (Tylenol) 650 mg PRN Q4HRS PRN PO FEVER; Start 01/01/19 at 04:30; Stop 01/02/19 at 04:29; Status DC Albuterol/ Ipratropium (Duoneb) 3 ml RTQID NEB Last administered on 01/01/19at 20 :42; Start 01/01/19 at 08:00; Stop 01/02/19 at 07:59; Status DC Pantoprazole Sodium (PROTONIX VIAL for IV PUSH) 80 mg 1X ONCE IVP ; Start at 05:00; Stop 01/01/19 at 05:01; Status DC Acetaminophen (Tylenol) 650 mg 1X PRN PRN PO PRE-TRANSFUSION; Start 01/01/19 at 04:45; Stop 01/02/19 at 08:59; Status DC Diphenhydramine HCl (Benadryl Oral Elixir) 12.5 mg 1X PRN PRN PO PRE- TRANSFUSION; Start 01/01/19 at 04:45; Stop 01/04/19 at 12:39; Status DC Linezolid/Dextrose 300 ml @ 300 mls/hr Q12HR IV Last administered on 01/05/19at 09:06; Start 01/01/19 at 09:00; Stop 01/05/19 at 09:57; Status DC Piperacillin Sod/ Tazobactam Sod 3.375 gm/Sodium Chloride 50 ml @ 100 mls/hr Q6HRS IV Last administered on 01/05/19at 05:34; Start 01/01/19 at 07:45; Stop 01/05 at 09:57; Status DC Doxycycline Hyclate 100 mg/ Dextrose 100 ml @ 50 mls/hr Q12HR IV Last administered on 01/04/19at 20:37; Start 01/01/19 at 09:00; Stop 01/05/19 at 09:57; Status DC Influenza Virus Vaccine (Afluria Trivalent 8829-7842 Syringe) 0.5 ml ONCE ONCE VAX IM ; Start 01/01/19 at 09:00; Stop 01/01/19 at 09:03; Status DC Ondansetron HCl (Zofran) 4 mg PRN Q6HRS PRN IV NAUSEA/VOMITING 1ST CHOICE; Start 01/01/19 at 09:00 Ketorolac Tromethamine (Toradol 15mg Vial) 15 mg 1X ONCE IM Last administered on 01/01/19at 10:01; Start 01/01/19 at 09:00; Stop 01/01/19 at 09:03; Status DC Oxycodone/ Acetaminophen (Percocet 5/325) 1 tab PRN Q4HRS PRN PO SEVERE PAIN Last administered on 01/04/19at 20:37; Start 01/01/19 at 09:00 Morphine Sulfate (Morphine Sulfate) 2 mg PRN Q2HR PRN IV MODERATE TO SEVERE PAIN; Start 01/01/19 at 09:00 Pantoprazole Sodium (Protonix) 40 mg DAILYAC PO Last administered on 01/05/19at 08:04; Start 01/01/19 at 11:30 Al Hydroxide/Mg Hydroxide (Mylanta Plus Xs) 30 ml PRN Q2HR PRN PO HEARTBURN / GAS; Start 01/01/19 at 09:00 Diphenhydramine HCl (Benadryl) 25 mg PRN QHS PRN PO INSOMNIA Last administered on 01/04/19at 20:36; Start 01/01/19 at 09:00 Nicotine (Nicoderm Cq 21mg) 1 patch PRN DAILY PRN TD SMOKING CESSATION; Start 01/01/19 at 09:00 Acetaminophen (Tylenol) 975 mg PRN Q8HRS PRN PO MILD PAIN; Start 01/01/19 at 09: 00 Atorvastatin Calcium (Lipitor) 40 mg QHS PO Last administered on 01/04/19 20:36 ; Start 01/01/19 at 21:00 Lisinopril (Prinivil) 40 mg DAILY PO Last administered on 01/05/19 09:12; Start 01/01/19 at 09:00 Metoprolol Tartrate (Lopressor) 25 mg DAILY PO Last administered on 01/05/19 09 :09; Start 01/01/19 at 09:00 Metformin HCl (Glucophage) 1,000 mg BIDWMEALS PO Last administered on 01/05/19 08:06; Start 01/01/19 at 17:00 Pioglitazone HCl (Actos) 15 mg DAILY PO Last administered on 01/05/19 09:08; Start 01/01/19 at 09:00 Insulin Human Lispro (HumaLOG) 0-9 UNITS TIDWMEALS SQ Last administered on 12:46; Start 01/01/19 at 12:00 Dextrose (Dextrose 50%-Water Syringe) 12.5 gm PRN Q15MIN PRN IV SEE COMMENTS; Start 01/01/19 at 09:00 Ferrous Sulfate (Iron Oral Solution) 300 mg BIDWMEALS PO Last administered on 08:50; Start 01/01/19 at 10:00; Stop 01/03/19 at 09:59; Status DC Polyethylene Glycol (miraLAX PACKET) 17 gm PRN DAILY PRN PO CONSTIPATION; Start 01/01/19 at 10:15 Cyanocobalamin (Vitamin B-12) 1,000 mcg DAILY PO Last administered on 01/05/19 09:17; Start 01/01/19 at 10:30 Influenza Virus Vaccine (Afluria Trivalent [id number] Syringe) 0.5 ml ONCE ONCE VAX IM Last administered on 01/05/19 11:38; Start 01/02/19 at 09:00; Stop at 09:01; Status DC Bupivacaine HCl (Sensorcaine-Mpf 0.25%) 10 ml 1X ONCE IJ Last administered on 01/01/19at 17:12; Start 01/01/19 at 17:00; Stop 01/01/19 at 17:01; Status DC Methylprednisolone Acetate (DEPO-Medrol 80MG VIAL) 160 mg 1X ONCE INT ART Last administered on 01/01/19at 17:10; Start 01/01/19 at 17:00; Stop 01/01/19 at 17: 01; Status DC Lactobacillus Rhamnosus (Culturelle) 1 cap BID PO Last administered on at 09:08; Start 01/02/19 at 09:00 Albuterol/ Ipratropium (Duoneb) 3 ml RTQID NEB Last administered on 01/05/19at 11 :38; Start 01/02/19 at 12:00 Ferrous Sulfate (Feosol) 325 mg BIDWMEALS PO Last administered on 01/05/19at 08: 00; Start 01/03/19 at 17:00 Furosemide (Lasix) 40 mg 1X ONCE IVP Last administered on 01/04/19at 09:11; Start 01/04/19 at 09:00; Stop 01/04/19 at 09:01; Status DC Amoxicillin/ Clavulanate Potassium (Augmentin 875/ 125mg) 1 tab BID PO ; Start 01/05/19 at 21:00 Furosemide (Lasix) 20 mg 1X ONCE IVP Last administered on 01/05/19at 11:39; Start 01/05/19 at 11:30; Stop 01/05/19 at 11:31; Status DC Active Scripts Active Reported Hydrocortisone 453.6 Gm Oint...g. TP BID Actos (Pioglitazone Hcl) 15 Mg Tablet 1 Tab PO DAILY Lisinopril 40 Mg Tablet 1 Tab PO DAILY Tylenol (Acetaminophen) 325 Mg Tablet 3 Tab PO PRN Q8HRS PRN Protonix (Pantoprazole Sodium) 20 Mg Tablet.dr 40 Mg PO DAILY Metformin Hcl 1,000 Mg Tablet 1,000 Mg PO BIDWMEALS Atorvastatin Calcium 40 Mg Tablet 1 Tab PO DAILY Metoprolol Tartrate 25 Mg Tablet 1 Tab PO DAILY Aspirin 325 Mg Tablet 1 Tab PO DAILY Vitals/I & O Vital Sign - Last 24 Hours 01/04/19 01/04/19 01/04/19 01/04/19 15:10 15:51 19:00 19:00 Temp 97.8 98.1 97.8 98.1 Pulse 91 101 Resp 18 B/P (MAP) 146/77 (100) 134/68 (90) Pulse Ox 96 94 92 O2 Delivery Nasal Cannula Nasal Cannula Nasal Cannula O2 Flow Rate 4.0 5.0 4.0 01/04/19 01/04/19 01/04/19 01/04/19 20:37 21:17 21:29 23:00 Temp 97.6 97.6 Pulse 99 Resp 18 18 B/P (MAP) 129/73 (91) Pulse Ox 92 94 94 93 O2 Delivery Nasal Cannula Nasal Cannula Nasal Cannula O2 Flow Rate 4.0 3.0 4.0 01/05/19 01/05/19 01/05/19 01/05/19 03:00 07:00 07:30 08:00 Temp 97.5 98.4 97.5 98.4 Pulse 82 88 Resp 18 B/P (MAP) 128/75 (92) 158/83 (108) Pulse Ox 90 95 94 O2 Delivery Nasal Cannula Nasal Cannula O2 Flow Rate 4.0 4.0 01/05/19 01/05/19 01/05/19 01/05/19 09:09 09:12 11:04 11:39 Temp 98.1 98.1 Pulse 88 88 88 Resp 20 B/P (MAP) 158/83 158/83 128/75 (92) Pulse Ox 94 94 O2 Delivery Nasal Cannula Nasal Cannula O2 Flow Rate 4.0 Intake and Output 01/04/19 01/04/19 01/05/19 15:01 23:01 07:01 Intake Total 1500 ml 560 ml Output Total 2675 ml 650 ml 400 ml Balance -2675 ml 850 ml 160 ml JACKIE CANO MD Jan 05, 2019 14:51
[2019-01-05] MEDS: AMOXICILLIN/K CLAV 875/125MG TABLET. PO SCH (20:44)
[2019-01-05] MEDS: ATORVASTATIN CALCIUM 40 MG TABLET. PO SCH (20:44)
[2019-01-05] MEDS: diphenhydrAMINE HCL 25 MG CAPSULE PO PRN (22:35)
[2019-01-05] MEDS: oxyCODONE/APAP 5/325 1 TAB TABLET PO PRN (22:48)
[2019-01-06 03:00] VITALS: BP 146/77
[2019-01-06 06:54] LABS: BASO # 0.1 x10^3/uL (0.0-0.2); BASO % 0 % (0-3); EOS # 0.2 x10^3/uL (0.0-0.7); EOS % 2 % (0-3); HEMATOCRIT 28.3 % (39.0-53.0); HEMOGLOBIN 8.4 g/dL (13.0-17.5); LYMPH % 7 % (24-48); MEAN CORPUSCULAR HEMOGLOBIN 21 pg (25-35); MEAN CORPUSCULAR HGB CONC 30 g/dL (31-37); MEAN CORPUSCULAR VOLUME 72 fL (79-100); MONO # 0.6 x10^3/uL (0.0-1.1); MONO % 5 % (0-9); NEUT # 11.2 x10^3uL (1.8-7.7); NEUT % 86 % (31-73); PLATELET COUNT 750 x10^3/uL (140-400); RED BLOOD COUNT 3.96 x10^6/uL (4.30-5.70); RED CELL DISTRIBUTION WIDTH 20.5 % (11.5-14.5)
[2019-01-06 07:00] VITALS: BP 145/82
[2019-01-06 07:02] LABS: CALCIUM 8.9 mg/dL (8.5-10.1); CREATININE 1.2 mg/dL (0.7-1.3); POTASSIUM 4.5 mmol/L (3.5-5.1)
[2019-01-06] MEDS: IPRATRPIUM/ALBUTEROL 0.5/2.5MG 3 ML NEBU. NEB SCH ×2 (07:38→11:49)
[2019-01-06] MEDS: INSULIN LISPRO 300 UNITS/3 ML INSULN.PEN. SQ SCH ×2 (08:00→12:29)
--- NOTE | 2019-01-06 08:23 | NUR ---
RN NOTE PATIENT TRIGGERED A POSITIVE SEPSIS SCREEN. 4 TOTAL FROM INFECTION AND AN ELEVATED HEART RATE AND WBC. PAGED ICU AT 0750. ICU NURSE MARV RETURNED CALL AT 0808. ADVISED OF PATIENTS STATUS. NO CHANGE IN VITALS, PATIENT ALERT. ALSO ADVISED PATIENT IS ON ABX AMOXICILLIN BID. STATED SHE WILL CONTINUE TO MONITOR.
[2019-01-06] MEDS: LACTOBACILLUS RHAMNOSUS GG 1 CAPSULE. PO SCH (09:12)
[2019-01-06] MEDS: METOPROLOL TART IMMED RELEASE 25 MG TABLET. PO SCH (09:12)
[2019-01-06] MEDS: metFORMIN 500 MG TABLET PO SCH (09:12)
[2019-01-06] MEDS: CYANOCOBALAMIN (VITAMIN B-12) 1,000 MCG TABLET. PO SCH (09:12)
[2019-01-06] MEDS: AMOXICILLIN/K CLAV 875/125MG TABLET. PO SCH (09:12)
[2019-01-06] MEDS: PANTOPRAZOLE 40 MG TABLET.DR. PO SCH (09:12)
[2019-01-06] MEDS: PIOGLITAZONE 15 MG TABLET. PO SCH (09:13)
[2019-01-06] MEDS: LISINOPRIL 20 MG TABLET PO SCH (09:13)
[2019-01-06] MEDS: FERROUS SULFATE 325 MG TABLET. PO SCH (09:19)
[2019-01-06] MEDS ORDERED: FERR325T72 PO (10:45)
[2019-01-06] MEDS ORDERED: ASPI325T8 PO (10:45)
[2019-01-06] MEDS ORDERED: AMOX1TAB11 PO (10:45)
[2019-01-06 11:00] VITALS: BP 130/77
--- NOTE | 2019-01-06 11:14 | PDOC3 ---
Discharge Summary Visit Information Date of Admission: Jan 01, 2019 Date of Discharge: Jan 06, 2019 Admitting Diagnosis: Multi lobar pneumonia in an nonsmoker-in and in immunoco Admitting Diagnosis Comment: Multi lobar pneumonia in an nonsmoker-in and in immunocompetent patient Sepsis secondary to above, no organ dysfunction Hemoccult-positive Acute precipitous drop of hemoglobin Reactive thrombocytosis Leukocytosis in the background of sepsis Diabetes type 2-controlled Chest pain, nonpleuritic-history of CAD and CABG Bilateral knee [id number] even straighten-he claims he was supposed to follow up with [facility] but never did Final Diagnosis Problems Medical Problems: (1) GI bleed Status: Acute Brief Hospital Course Allergies Allergies Coded Allergies Type Severity Reaction Last Updated Verified No Known Drug Allergies 10/21/18 No Vital Signs Vital Signs Date Time Temp Pulse Resp B/P (MAP) Pulse Ox O2 Delivery O2 Flow Rate FiO2 01/06/19 09:13 92 145/82 01/06/19 08:00 Nasal Cannula 4.0 01/06/19 07:41 95 01/06/19 07:00 98.5 18 98.5 Lab Results Laboratory Tests Test 01/04/19 14:18 01/04/19 18:35 01/04/19 21:10 01/05/19 04:20 Glucose (Fingerstick) 144 mg/dL (70-99) 140 mg/dL (70-99) 198 mg/dL (70-99) White Blood Count 11.7 x10^3/uL (4.0-11.0) Red Blood Count 3.80 x10^6/uL (4.30-5.70) Hemoglobin 8.2 g/dL (13.0-17.5) Hematocrit 27.4 % (39.0-53.0) Mean Corpuscular Volume 72 fL (79-100) Mean Corpuscular Hemoglobin 22 pg (25-35) Mean Corpuscular Hemoglobin Concent 30 g/dL (31-37) Red Cell Distribution Width 20.2 % (11.5-14.5) Platelet Count 691 x10^3/uL (140-400) Neutrophils (%) (Auto) 85 % (31-73) Lymphocytes (%) (Auto) 8 % (24-48) Monocytes (%) (Auto) 5 % (0-9) Eosinophils (%) (Auto) 1 % (0-3) Basophils (%) (Auto) 0 % (0-3) Neutrophils # (Auto) 9.9 x10^3uL (1.8-7.7) Lymphocytes # (Auto) 1.0 x10^3/uL (1.0-4.8) Monocytes # (Auto) 0.6 x10^3/uL (0.0-1.1) Eosinophils # (Auto) 0.1 x10^3/uL (0.0-0.7) Basophils # (Auto) 0.0 x10^3/uL (0.0-0.2) Procalcitonin 0.21 ng/mL (0.00-0.10) Test 01/05/19 07:31 01/05/19 11:22 01/05/19 15:54 01/05/19 20:44 Glucose (Fingerstick) 136 mg/dL (70-99) 145 mg/dL (70-99) 138 mg/dL (70-99) 115 mg/dL (70-99) Test 01/06/19 05:50 01/06/19 07:49 White Blood Count 13.0 x10^3/uL (4.0-11.0) Red Blood Count 3.96 x10^6/uL (4.30-5.70) Hemoglobin 8.4 g/dL (13.0-17.5) Hematocrit 28.3 % (39.0-53.0) Mean Corpuscular Volume 72 fL (79-100) Mean Corpuscular Hemoglobin 21 pg (25-35) Mean Corpuscular Hemoglobin Concent 30 g/dL (31-37) Red Cell Distribution Width 20.5 % (11.5-14.5) Platelet Count 750 x10^3/uL (140-400) Neutrophils (%) (Auto) 86 % (31-73) Lymphocytes (%) (Auto) 7 % (24-48) Monocytes (%) (Auto) 5 % (0-9) Eosinophils (%) (Auto) 2 % (0-3) Basophils (%) (Auto) 0 % (0-3) Neutrophils # (Auto) 11.2 x10^3uL (1.8-7.7) Lymphocytes # (Auto) 1.0 x10^3/uL (1.0-4.8) Monocytes # (Auto) 0.6 x10^3/uL (0.0-1.1) Eosinophils # (Auto) 0.2 x10^3/uL (0.0-0.7) Basophils # (Auto) 0.1 x10^3/uL (0.0-0.2) Sodium Level 137 mmol/L (136-145) Potassium Level 4.5 mmol/L (3.5-5.1) Chloride Level 103 mmol/L (98-107) Carbon Dioxide Level 27 mmol/L (21-32) Anion Gap 7 (6-14) Blood Urea Nitrogen 21 mg/dL (8-26) Creatinine 1.2 mg/dL (0.7-1.3) Estimated GFR (Cockcroft-Gault) 61.0 Glucose Level 127 mg/dL (70-99) Calcium Level 8.9 mg/dL (8.5-10.1) Glucose (Fingerstick) 121 mg/dL (70-99) Laboratory Tests Test 01/05/19 11:22 01/05/19 15:54 01/05/19 20:44 01/06/19 05:50 Glucose (Fingerstick) 145 mg/dL (70-99) 138 mg/dL (70-99) 115 mg/dL (70-99) White Blood Count 13.0 x10^3/uL (4.0-11.0) Red Blood Count 3.96 x10^6/uL (4.30-5.70) Hemoglobin 8.4 g/dL (13.0-17.5) Hematocrit 28.3 % (39.0-53.0) Mean Corpuscular Volume 72 fL (79-100) Mean Corpuscular Hemoglobin 21 pg (25-35) Mean Corpuscular Hemoglobin Concent 30 g/dL (31-37) Red Cell Distribution Width 20.5 % (11.5-14.5) Platelet Count 750 x10^3/uL (140-400) Neutrophils (%) (Auto) 86 % (31-73) Lymphocytes (%) (Auto) 7 % (24-48) Monocytes (%) (Auto) 5 % (0-9) Eosinophils (%) (Auto) 2 % (0-3) Basophils (%) (Auto) 0 % (0-3) Neutrophils # (Auto) 11.2 x10^3uL (1.8-7.7) Lymphocytes # (Auto) 1.0 x10^3/uL (1.0-4.8) Monocytes # (Auto) 0.6 x10^3/uL (0.0-1.1) Eosinophils # (Auto) 0.2 x10^3/uL (0.0-0.7) Basophils # (Auto) 0.1 x10^3/uL (0.0-0.2) Sodium Level 137 mmol/L (136-145) Potassium Level 4.5 mmol/L (3.5-5.1) Chloride Level 103 mmol/L (98-107) Carbon Dioxide Level 27 mmol/L (21-32) Anion Gap 7 (6-14) Blood Urea Nitrogen 21 mg/dL (8-26) Creatinine 1.2 mg/dL (0.7-1.3) Estimated GFR (Cockcroft-Gault) 61.0 Glucose Level 127 mg/dL (70-99) Calcium Level 8.9 mg/dL (8.5-10.1) Test 01/06/19 07:49 Glucose (Fingerstick) 121 mg/dL (70-99) Brief Hospital Course History of Present Illness 53-year-old male who actually came in for chest pains maybe for 1-2 days and was found to have multilobar pneumonia hence ID is now on board and treating that. I thought initially that his chest pain was pleuritic but he claims that his chest pain associated with SOA happen also when he would run his wheelchair very fast/IE upon exertion. ASSOCIATED with SOA He does have history of CAD with stents in 2004 and CABG 2011 both done [place]. He denies smoking or heavy alcohol use. He is tachycardic from the sepsis/multilobar pneumonia. Also another issue is his hemoglobin is 6.6 and getting blood transfusion with Hemoccult positive in the stool. Denies melena or hematochezia but he fails to check on his stool he admits.HE just had a colonoscopy a year ago after an episode of diverticulitis. As far as he can recall he has never been on iron supplements or never had transfusion before GI also likewise on board ON ROS also complains of bilateral knee pain. Physical exam very remarkable for limited straightening, he is wheelchair-bound at a young age because of severe OA He claims to me that he was supposed to follow-up at [facility] but never did Patient seen in consultation by GI cardiology pulmonology and ID. Patient was started on broad-spectrum antibiotics, there was a occult blood positive but the patient had an EGD on 10/2018 reason why unlikely there is an active disease causing his call blood positive. Most likely it's a diverticular bleed. The patient did not percent further episodes and his hemoglobin stabilized after blood transfusion. He received 2 units of packed red blood cells and nares hemoglobin upon discharge was greater than 8. The patient was seen also in consultation by pulmonology for his multilobar pneumonia. He was deemed appropriate from all the consultants standpoint of view to be dismissed home, he was transitioned to oral antibiotics and tolerated these well. He will be following up in the outpatient setting with cardiology given the patient had this anemia this may have provoked the discomfort previously described. Echocardiogram was done during this hospital stay with normal findings. The patient was in good spirits to be dismissed home, signs and symptoms of alarm were discussed prior to discharge. All the patient's concerns were addressed the best of my abilities Discharge Information Condition at Discharge: Improved Follow Up: Weeks Disposition/Orders: D/C to Home Scheduled Amoxicillin/Potassium Clav (Amox Tr-K Clv 875-125 Mg Tab) 1 Each Tablet, 1 TAB PO BID for pneumonia for 3 Days, #6 Prescribed by: MANOJ RICHEY MD on 01/06/19 1045 Aspirin (Aspirin) 325 Mg Tablet, 1 TAB PO DAILY for antiplatelet for 30 Days, # 30 Ref 5 Prescribed by: MANOJ RICHEY MD on 01/06/19 1045 Atorvastatin Calcium (Atorvastatin Calcium) 40 Mg Tablet, 1 TAB PO DAILY, #30 Ref 5 (Reported) Entered as Reported by: YAW ROCHE on 07/07/18 0850 Last Action: Continued on 01/01/19 0854 by MINNIE SEXTON Ferrous Sulfate (Feosol) 325 Mg Tablet, 325 MG PO DAILY for anemia for 30 Days, #30 Ref 3 Prescribed by: MANOJ RICHEY MD on 01/06/19 1045 Hydrocortisone (Hydrocortisone) 453.6 Gm Oint...g., TP BID, #60 Ref 1 (Reported) Entered as Reported by: Jasmyn Arvizu on 01/01/19515 Last Action: HELD on 01/01/19853 by MINNIE SEXTON Lisinopril (Lisinopril) 40 Mg Tablet, 1 TAB PO DAILY for bp, #30 Ref 5 (Reported ) Entered as Reported by: CELENA JORDAN on 10/21/18 0624 Last Action: Continued on 01/01/19853 by MINNIE SEXTON Metformin Hcl (Metformin Hcl) 1,000 Mg Tablet, 1,000 MG PO BIDWMEALS, (Reported) Entered as Reported by: YAW ROCHE on 07/07/18849 Last Action: Converted on 01/01/19853 by MINNIE SEXTON Metoprolol Tartrate (Metoprolol Tartrate) 25 Mg Tablet, 1 TAB PO DAILY, #180 Ref 1 (Reported) Entered as Reported by: SAMEERA AHMADI on 02/28/18 1442 Last Action: Continued on 01/01/19853 by MINNIE SEXTON Pantoprazole Sodium (Protonix) 20 Mg Tablet.dr, 40 MG PO DAILY, (Reported) Entered as Reported by: YAW ROCHE on 07/07/18849 Last Action: HELD on 01/01/19853 by MINNIE SEXTON Pioglitazone Hcl (Actos) 15 Mg Tablet, 1 TAB PO DAILY, #30 Ref 5 (Reported) Entered as Reported by: Jasmyn Arvizu on 01/01/19510 Last Action: Converted on 01/01/19853 by MINNIE SEXTON Scheduled PRN Acetaminophen (Tylenol) 325 Mg Tablet, 3 TAB PO PRN Q8HRS PRN for PAIN, #30 ( Reported) Entered as Reported by: YAW ROCHE on 07/07/1850 Last Action: Continued on 01/01/19853 by MINNIE SEXTON Discontinued Medications Calcium Carbonate (Tums) 200 Mg Tab.chew, 2 TAB.CHEW PO PRN TID PRN for INDIGESTION, (Reported) Discontinued Reason: not ordere Entered as Reported by: YAW ROCHE on 07/07/18849 Last Action: Discontinued on 01/01/19514 by MANOJ Gaspar MDb 6, 2019 11:14
--- NOTE | 2019-01-06 11:18 | PDOC ---
Subjective: Subjective: Says he thinks he'll be discharged today. Some mid abdominal pain overnight - not worse with eating or cough, "just there. " Objective: Vital Signs: Vital Signs Date Time Temp Pulse Resp B/P (MAP) Pulse Ox O2 Delivery O2 Flow Rate FiO2 01/06/19 09:13 92 145/82 01/06/19 08:00 Nasal Cannula 4.0 01/06/19 07:41 95 01/06/19 07:00 98.5 18 98.5 Labs: Laboratory Tests Test 01/05/19 11:22 01/05/19 15:54 01/05/19 20:44 01/06/19 05:50 Glucose (Fingerstick) 145 mg/dL 138 mg/dL 115 mg/dL White Blood Count 13.0 x10^3/uL Red Blood Count 3.96 x10^6/uL Hemoglobin 8.4 g/dL Hematocrit 28.3 % Mean Corpuscular Volume 72 fL Mean Corpuscular Hemoglobin 21 pg Mean Corpuscular Hemoglobin Concent 30 g/dL Red Cell Distribution Width 20.5 % Platelet Count 750 x10^3/uL Neutrophils (%) (Auto) 86 % Lymphocytes (%) (Auto) 7 % Monocytes (%) (Auto) 5 % Eosinophils (%) (Auto) 2 % Basophils (%) (Auto) 0 % Neutrophils # (Auto) 11.2 x10^3uL Lymphocytes # (Auto) 1.0 x10^3/uL Monocytes # (Auto) 0.6 x10^3/uL Eosinophils # (Auto) 0.2 x10^3/uL Basophils # (Auto) 0.1 x10^3/uL Sodium Level 137 mmol/L Potassium Level 4.5 mmol/L Chloride Level 103 mmol/L Carbon Dioxide Level 27 mmol/L Anion Gap 7 Blood Urea Nitrogen 21 mg/dL Creatinine 1.2 mg/dL Estimated GFR (Cockcroft-Gault) 61.0 Glucose Level 127 mg/dL Calcium Level 8.9 mg/dL Test 01/06/19 07:49 Glucose (Fingerstick) 121 mg/dL GRAM STAIN WHITE BLOOD CELLS Final Few GRAM STAIN EPITHELIAL CELLS Final Few GRAM STAIN RESULT 1 Final Comment Small amount of yeast seen. GRAM STAIN EVALUATION Final Comment BLOOD CULTURE Final NO GROWTH AFTER 5 DAYS PE: GEN: NAD LUNGS: NC HEART: RRR ABD: periumbilical tenderness NEURO/PSYCH: A & O �3 A/P: CAP, CHF MARIA DEL CARMEN - stable -- DC per primary. Continue iron long-term. Could consider SBS or SBCE at some point. PRASANTH LAGOS Jan 06, 2019 11:18
--- NOTE | 2019-01-06 11:40 | PDOC ---
Infectious Disease Note Subjective Subjective Comfortable, denies pain c/o some SOA with exertion Regular diet now No fevers/chills Denies N/V/D/CP Vital Sign Vital Signs Vital Signs Date Time Temp Pulse Resp B/P (MAP) Pulse Ox O2 Delivery O2 Flow Rate FiO2 01/06/19 09:13 92 145/82 01/06/19 08:00 Nasal Cannula 4.0 01/06/19 07:41 95 01/06/19 07:00 98.5 18 98.5 Physical Exam PHYSICAL EXAM GENERAL: Sitting on the side of the bed, alert, eating HEENT: Oral cavity, pharynx was clear. NECK: Supple with good range of motion. LUNGS: Improved aeration HEART: S1, S2. ABDOMEN: Soft, nontender, nondistended, no guarding, no rebound. EXTREMITIES: No clubbing, cyanosis or gross edema. SKIN: Warm to touch without generalized signs of rash. NEUROLOGIC: Alert and oriented PIV ok Labs Lab Laboratory Tests Test 01/05/19 15:54 01/05/19 20:44 01/06/19 05:50 01/06/19 07:49 Glucose (Fingerstick) 138 mg/dL (70-99) 115 mg/dL (70-99) 121 mg/dL (70-99) White Blood Count 13.0 x10^3/uL (4.0-11.0) Red Blood Count 3.96 x10^6/uL (4.30-5.70) Hemoglobin 8.4 g/dL (13.0-17.5) Hematocrit 28.3 % (39.0-53.0) Mean Corpuscular Volume 72 fL (79-100) Mean Corpuscular Hemoglobin 21 pg (25-35) Mean Corpuscular Hemoglobin Concent 30 g/dL (31-37) Red Cell Distribution Width 20.5 % (11.5-14.5) Platelet Count 750 x10^3/uL (140-400) Neutrophils (%) (Auto) 86 % (31-73) Lymphocytes (%) (Auto) 7 % (24-48) Monocytes (%) (Auto) 5 % (0-9) Eosinophils (%) (Auto) 2 % (0-3) Basophils (%) (Auto) 0 % (0-3) Neutrophils # (Auto) 11.2 x10^3uL (1.8-7.7) Lymphocytes # (Auto) 1.0 x10^3/uL (1.0-4.8) Monocytes # (Auto) 0.6 x10^3/uL (0.0-1.1) Eosinophils # (Auto) 0.2 x10^3/uL (0.0-0.7) Basophils # (Auto) 0.1 x10^3/uL (0.0-0.2) Sodium Level 137 mmol/L (136-145) Potassium Level 4.5 mmol/L (3.5-5.1) Chloride Level 103 mmol/L (98-107) Carbon Dioxide Level 27 mmol/L (21-32) Anion Gap 7 (6-14) Blood Urea Nitrogen 21 mg/dL (8-26) Creatinine 1.2 mg/dL (0.7-1.3) Estimated GFR (Cockcroft-Gault) 61.0 Glucose Level 127 mg/dL (70-99) Calcium Level 8.9 mg/dL (8.5-10.1) Micro Microbiology 01/01/19 Blood Culture - Preliminary, Resulted NO GROWTH AFTER 3 DAYS Objective Assessment Fever - better Leukocytosis - better, now up post steroid injection and PRBCs Community-acquired pneumonia. Anemia s/p PRBCs Questionable gastrointestinal bleed with history of diverticulitis, and occult positive. Diabetes. Arthritic knees s/p steroid injection, 01/01 CHF Plan Plan of Care po augmentin Strep/Legionella antigens neg F/u labs and cults Supportive care ISRAEL OLSON MD Jan 06, 2019 11:40
--- NOTE | 2019-01-06 11:41 | PDOC ---
PULMONARY PROGRESS NOTES Subjective NO SOA/ COUGH BETTER Vitals Vital Signs Date Time Temp Pulse Resp B/P (MAP) Pulse Ox O2 Delivery O2 Flow Rate FiO2 01/06/19 09:13 92 145/82 01/06/19 08:00 Nasal Cannula 4.0 01/06/19 07:41 95 01/06/19 07:00 98.5 18 98.5 General: Alert, No acute distress Lungs: Other (decrease bs right) Neuro Exam: Alert Extremities: Other (1+edema) Labs Laboratory Tests Test 01/04/19 14:18 01/04/19 18:35 01/04/19 21:10 01/05/19 04:20 Glucose (Fingerstick) 144 mg/dL (70-99) 140 mg/dL (70-99) 198 mg/dL (70-99) White Blood Count 11.7 x10^3/uL (4.0-11.0) Red Blood Count 3.80 x10^6/uL (4.30-5.70) Hemoglobin 8.2 g/dL (13.0-17.5) Hematocrit 27.4 % (39.0-53.0) Mean Corpuscular Volume 72 fL (79-100) Mean Corpuscular Hemoglobin 22 pg (25-35) Mean Corpuscular Hemoglobin Concent 30 g/dL (31-37) Red Cell Distribution Width 20.2 % (11.5-14.5) Platelet Count 691 x10^3/uL (140-400) Neutrophils (%) (Auto) 85 % (31-73) Lymphocytes (%) (Auto) 8 % (24-48) Monocytes (%) (Auto) 5 % (0-9) Eosinophils (%) (Auto) 1 % (0-3) Basophils (%) (Auto) 0 % (0-3) Neutrophils # (Auto) 9.9 x10^3uL (1.8-7.7) Lymphocytes # (Auto) 1.0 x10^3/uL (1.0-4.8) Monocytes # (Auto) 0.6 x10^3/uL (0.0-1.1) Eosinophils # (Auto) 0.1 x10^3/uL (0.0-0.7) Basophils # (Auto) 0.0 x10^3/uL (0.0-0.2) Procalcitonin 0.21 ng/mL (0.00-0.10) Test 01/05/19 07:31 01/05/19 11:22 01/05/19 15:54 01/05/19 20:44 Glucose (Fingerstick) 136 mg/dL (70-99) 145 mg/dL (70-99) 138 mg/dL (70-99) 115 mg/dL (70-99) Test 01/06/19 05:50 01/06/19 07:49 White Blood Count 13.0 x10^3/uL (4.0-11.0) Red Blood Count 3.96 x10^6/uL (4.30-5.70) Hemoglobin 8.4 g/dL (13.0-17.5) Hematocrit 28.3 % (39.0-53.0) Mean Corpuscular Volume 72 fL (79-100) Mean Corpuscular Hemoglobin 21 pg (25-35) Mean Corpuscular Hemoglobin Concent 30 g/dL (31-37) Red Cell Distribution Width 20.5 % (11.5-14.5) Platelet Count 750 x10^3/uL (140-400) Neutrophils (%) (Auto) 86 % (31-73) Lymphocytes (%) (Auto) 7 % (24-48) Monocytes (%) (Auto) 5 % (0-9) Eosinophils (%) (Auto) 2 % (0-3) Basophils (%) (Auto) 0 % (0-3) Neutrophils # (Auto) 11.2 x10^3uL (1.8-7.7) Lymphocytes # (Auto) 1.0 x10^3/uL (1.0-4.8) Monocytes # (Auto) 0.6 x10^3/uL (0.0-1.1) Eosinophils # (Auto) 0.2 x10^3/uL (0.0-0.7) Basophils # (Auto) 0.1 x10^3/uL (0.0-0.2) Sodium Level 137 mmol/L (136-145) Potassium Level 4.5 mmol/L (3.5-5.1) Chloride Level 103 mmol/L (98-107) Carbon Dioxide Level 27 mmol/L (21-32) Anion Gap 7 (6-14) Blood Urea Nitrogen 21 mg/dL (8-26) Creatinine 1.2 mg/dL (0.7-1.3) Estimated GFR (Cockcroft-Gault) 61.0 Glucose Level 127 mg/dL (70-99) Calcium Level 8.9 mg/dL (8.5-10.1) Glucose (Fingerstick) 121 mg/dL (70-99) Laboratory Tests Test 01/05/19 15:54 01/05/19 20:44 01/06/19 05:50 01/06/19 07:49 Glucose (Fingerstick) 138 mg/dL (70-99) 115 mg/dL (70-99) 121 mg/dL (70-99) White Blood Count 13.0 x10^3/uL (4.0-11.0) Red Blood Count 3.96 x10^6/uL (4.30-5.70) Hemoglobin 8.4 g/dL (13.0-17.5) Hematocrit 28.3 % (39.0-53.0) Mean Corpuscular Volume 72 fL (79-100) Mean Corpuscular Hemoglobin 21 pg (25-35) Mean Corpuscular Hemoglobin Concent 30 g/dL (31-37) Red Cell Distribution Width 20.5 % (11.5-14.5) Platelet Count 750 x10^3/uL (140-400) Neutrophils (%) (Auto) 86 % (31-73) Lymphocytes (%) (Auto) 7 % (24-48) Monocytes (%) (Auto) 5 % (0-9) Eosinophils (%) (Auto) 2 % (0-3) Basophils (%) (Auto) 0 % (0-3) Neutrophils # (Auto) 11.2 x10^3uL (1.8-7.7) Lymphocytes # (Auto) 1.0 x10^3/uL (1.0-4.8) Monocytes # (Auto) 0.6 x10^3/uL (0.0-1.1) Eosinophils # (Auto) 0.2 x10^3/uL (0.0-0.7) Basophils # (Auto) 0.1 x10^3/uL (0.0-0.2) Sodium Level 137 mmol/L (136-145) Potassium Level 4.5 mmol/L (3.5-5.1) Chloride Level 103 mmol/L (98-107) Carbon Dioxide Level 27 mmol/L (21-32) Anion Gap 7 (6-14) Blood Urea Nitrogen 21 mg/dL (8-26) Creatinine 1.2 mg/dL (0.7-1.3) Estimated GFR (Cockcroft-Gault) 61.0 Glucose Level 127 mg/dL (70-99) Calcium Level 8.9 mg/dL (8.5-10.1) Medications Active Scripts Medications Dose Route/Sig Max Daily Dose Days Date Category Hydrocortisone 453.6 Gm Oint...g. TP BID 01/01/19 Reported Actos (Pioglitazone Hcl) 15 Mg Tablet 1 Tab PO DAILY 01/01/19 Reported Lisinopril 40 Mg Tablet 1 Tab PO DAILY 10/21/18 Reported Tylenol (Acetaminophen) 325 Mg Tablet 3 Tab PO PRN Q8HRS PRN 07/07/18 Reported Protonix (Pantoprazole Sodium) 20 Mg Tablet.dr 40 Mg PO DAILY 07/07/18 Reported Metformin Hcl 1,000 Mg Tablet 1,000 Mg PO BIDWMEALS 07/07/18 Reported Atorvastatin Calcium 40 Mg Tablet 1 Tab PO DAILY 07/07/18 Reported Metoprolol Tartrate 25 Mg Tablet 1 Tab PO DAILY 02/28/18 Reported Aspirin 325 Mg Tablet 1 Tab PO DAILY 02/28/18 Reported Impression . 1. Abnormal CT revealing extensive right-sided infiltrate compatible with pneumonia/ cannot exclude superimposed CHF/ increase pro-BNP 2. Suspect Gram-negative, possibly Gram-positive pneumonia. 3. Respiratory failure secondary to above. 4. History of diverticulitis with questionable gastrointestinal bleed. 5. 35 years of tobacco use/ suspect COPD Plan . 1. antibiotics changed to PO per ID 2. Had lasix yesterday. pro-calcitonin 0.2. clinically better, CXR 2/4 lags clinical improvement. ok with dc on PO abx per ID 3. Repeat CT chest in 2 months. 4. O2 I LACY SANTOS MD Jan 06, 2019 11:41
--- NOTE | 2019-01-06 12:00 | NUR ---
Discharge Note: DARELL SANCHEZ Discharge instructions and discharge home medications [facility] and a copy given. All questions have been answered and understanding verbalized. Discontinued lines and drains: PERIPHERAL Patient discharged to [facility] with [facility] via Wheelchair
--- NOTE | 2019-01-06 13:02 | PDOC ---
CARDIO Progress Notes Date and Time Date of Service 01/06/2019 Time of Evaluation 1240 Subjective Subjective: No Chest Pain, No shortness of breath, No Palpitations Vitals Vitals Vital Signs Date Time Temp Pulse Resp B/P (MAP) Pulse Ox O2 Delivery O2 Flow Rate FiO2 01/06/19 11:00 97.3 106 18 130/77 (94) 90 Room Air 97.3 01/06/19 08:00 4.0 Weight Weight [ ] Input and Output Intake and Output Intake and Output 01/06/19 07:01 Intake Total 1200 ml Output Total 1700 ml Balance -500 ml Intake Oral 900 ml IV Total 300 ml Output Urine Total 1700 ml # Voids 1 Laboratory Labs Laboratory Tests Test 01/05/19 15:54 01/05/19 20:44 01/06/19 05:50 01/06/19 07:49 Glucose (Fingerstick) 138 mg/dL (70-99) 115 mg/dL (70-99) 121 mg/dL (70-99) White Blood Count 13.0 x10^3/uL (4.0-11.0) Red Blood Count 3.96 x10^6/uL (4.30-5.70) Hemoglobin 8.4 g/dL (13.0-17.5) Hematocrit 28.3 % (39.0-53.0) Mean Corpuscular Volume 72 fL (79-100) Mean Corpuscular Hemoglobin 21 pg (25-35) Mean Corpuscular Hemoglobin Concent 30 g/dL (31-37) Red Cell Distribution Width 20.5 % (11.5-14.5) Platelet Count 750 x10^3/uL (140-400) Neutrophils (%) (Auto) 86 % (31-73) Lymphocytes (%) (Auto) 7 % (24-48) Monocytes (%) (Auto) 5 % (0-9) Eosinophils (%) (Auto) 2 % (0-3) Basophils (%) (Auto) 0 % (0-3) Neutrophils # (Auto) 11.2 x10^3uL (1.8-7.7) Lymphocytes # (Auto) 1.0 x10^3/uL (1.0-4.8) Monocytes # (Auto) 0.6 x10^3/uL (0.0-1.1) Eosinophils # (Auto) 0.2 x10^3/uL (0.0-0.7) Basophils # (Auto) 0.1 x10^3/uL (0.0-0.2) Sodium Level 137 mmol/L (136-145) Potassium Level 4.5 mmol/L (3.5-5.1) Chloride Level 103 mmol/L (98-107) Carbon Dioxide Level 27 mmol/L (21-32) Anion Gap 7 (6-14) Blood Urea Nitrogen 21 mg/dL (8-26) Creatinine 1.2 mg/dL (0.7-1.3) Estimated GFR (Cockcroft-Gault) 61.0 Glucose Level 127 mg/dL (70-99) Calcium Level 8.9 mg/dL (8.5-10.1) Test 01/06/19 11:11 Glucose (Fingerstick) 162 mg/dL (70-99) Microbiology Micro Microbiology 01/01/19 Blood Culture - Final, Complete NO GROWTH AFTER 5 DAYS 01/03/19 - Final, Resulted 01/03/19 - Final, Resulted 01/03/19 - Final, Resulted 01/03/19 Gram Stain Evaluation - Final, Resulted 01/03/19 Sputum Culture, Resulted Pending Physical Exam HEENT: Neck Supple W Full Motion Chest: Symmetric LUNGS: Other (faint basilar crackles) Heart: S1S2, RRR Abdomen: Soft N/T Extremities: Other (trace LE edema) Neurology: alert, oriented, follow commands Assessment Assessment 1. CAP/fever: ID following 2. Microcytic hypochromic anemia: better after transfusion.recent endoscopy, MARIA DEL CARMEN per GI 3. CP/dyspnea: likely due to above. Initial trop nml, EKG SR without acute changes by comparison 4. HTN: controlled 5. DM2/HLP 6. CAD: CABG 2011 7. Obesity 8. Acute on chronic diastolic CHF: mild, superimposed by pulmonary issues. Now compensated 9. Thrombocytosis: per PCP Recommendations 1. Continue current cardiac regimne but will need to change metoprolol to BID, discussed with RN. 2. Continue with secondary prevention. Resume ASA once OK with GI. 3. Will arrange for cardiology follow up and stress test would be a consideration YUE MODI APRN Jan 06, 2019 13:02
== END 2019-01-06 12:45 | disposition home or self-care (01) | DRG 871 ==
LOC: ER 00:12 → EEVIPCON 00:12 → 2 NORTH 03:38 → 5 NORTH 01-04 18:30
PROVIDERS: ADMIT Internal Medicine; ATTEND Internal Medicine
PROC: 30233N1 Transfusion of Nonautologous Red Blood Cells into Peripheral Vein, Percutaneous Approach (ICD-10-PCS; principal; 2019-01-01)
PROC: 3E0U33Z Introduction of Anti-inflammatory into Joints, Percutaneous Approach (ICD-10-PCS; 2019-01-01)
PROC: 3E0U3BZ Introduction of Anesthetic Agent into Joints, Percutaneous Approach (ICD-10-PCS; 2019-01-01)
DX: A41.9 Sepsis, unspecified organism (principal); I50.33 Acute on chronic diastolic (congestive) heart failure; J96.91 Respiratory failure, unspecified with hypoxia; K57.91 Diverticulosis of intestine, part unspecified, without perforation or abscess with bleeding; J18.1 Lobar pneumonia, unspecified organism; D62 Acute posthemorrhagic anemia; I13.0 Hypertensive heart and chronic kidney disease with heart failure and stage 1 through stage 4 chronic kidney disease, or unspecified chronic kidney disease; I50.9 Heart failure, unspecified; I11.0 Hypertensive heart disease with heart failure; D63.8 Anemia in other chronic diseases classified elsewhere; D50.9 Iron deficiency anemia, unspecified; E11.22 Type 2 diabetes mellitus with diabetic chronic kidney disease; E66.9 Obesity, unspecified; E78.00 Pure hypercholesterolemia, unspecified; E78.5 Hyperlipidemia, unspecified; I25.10 Atherosclerotic heart disease of native coronary artery without angina pectoris; K21.0 Gastro-esophageal reflux disease with esophagitis; K64.8 Other hemorrhoids; M17.0 Bilateral primary osteoarthritis of knee; Z87.891 Personal history of nicotine dependence; Z95.1 Presence of aortocoronary bypass graft; Z95.5 Presence of coronary angioplasty implant and graft; Z99.3 Dependence on wheelchair; Z68.31 Body mass index [BMI] 31.0-31.9, adult; Z79.899 Other long term (current) drug therapy
CPT/HCPCS: 36415; 71045; 71275; 73560; 80048; 80053; 81001; 82274; 82607; 82728; 82962; 83516; 83540; 83550; 83735; 83880; 84145; 84443; 84484; 85007; 85025; 85045; 85379; 85610; 85651; 86850; 86900; 86901; 86920; 87040; 87070; 87205; 87449; 87641; 87804; 90471; 90756; 93005; 93306; 94640; 94760; J1040; J1815; J1885; J1940; J1956; J2020; J2543; J3490; J7620; P9016; Q0163; Q9967; 99285-25; G0378; Q2035